=== PATIENT | male | born 1990 | race Caucasian/White ===

== ENCOUNTER 2017-02-26 07:53 | Emergency (ER) | payer MEDICARE ==
[2017-02-26 08:09] VITALS: BP 128/70
[2017-02-26 09:00] LABS: ABSOLUTE BASOPHILS # (AUTO) 0.1 10^3/uL (0.0-0.2); ABSOLUTE EOSINOPHILS # (AUTO) 0.2 10^3/uL (0.0-0.6); ABSOLUTE LYMPHOCYTES (AUTO) 2.9 10^3/uL (0.5-4.7); ABSOLUTE MONOCYTES (AUTO) 0.6 10^3/uL (0.1-1.4); ABSOLUTE NEUT (AUTO) 5.8 10^3/uL (1.7-8.2); BASOPHILS % (AUTO) 1.2 % (0-2); EOSINOPHILS % (AUTO) 1.9 % (0-6); HEMATOCRIT 40.2 % (37.9-51.0); HEMOGLOBIN 13.6 g/dL (13.5-17.0); LYMPHOCYTES % (AUTO) 30.5 % (13-45); MEAN CORPUSCULAR HEMOGLOBIN 29.6 pg (27.0-33.4); MEAN CORPUSCULAR HGB CONC 33.9 g/dL (32.0-36.0); MEAN CORPUSCULAR VOLUME 87 fl (80-97); MONOCYTES % (AUTO) 6.6 % (3-13); PLATELET COUNT 212 10^3/uL (150-450); RED BLOOD COUNT 4.61 10^6/uL (4.35-5.55); RED CELL DISTRIBUTION WIDTH 13.8 % (11.5-14.0); SEGMENTED NEUTROPHILS % (AUTO) 59.8 % (42-78); TOTAL CELLS COUNTED % (AUTO) 100 %; WHITE BLOOD COUNT 9.7 10^3/uL (4.0-10.5)
[2017-02-26 09:25] LABS: ACETAMINOPHEN < 10 ug/mL (10-30); ALANINE AMINOTRANSFERASE 30 U/L (21-72); ALBUMIN 4.4 g/dL (3.5-5.0); ALCOHOL < 10 mg/dL (NONE DETECTED); ALKALINE PHOSPHATASE 55 U/L (38-126); ANION GAP 13 (5-19); ASPARTATE AMINO TRANSFERASE 25 U/L (17-59); BILIRUBIN,DIRECT 0.2 mg/dL (0.0-0.4); BILIRUBIN,TOTAL 0.7 mg/dL (0.2-1.3); BLOOD UREA NITROGEN 14 mg/dL (7-20); CALCIUM 10.1 mg/dL (8.4-10.2); CARBON DIOXIDE 30 mmol/L (22-30); CHLORIDE 101 mmol/L (98-107); GLUCOSE 145 mg/dL (75-110); POTASSIUM 3.7 mmol/L (3.6-5.0); SALICYLATE < 1.0 mg/dL (2.0-20.0); SODIUM 143.9 mmol/L (137-145); TOTAL PROTEIN 6.5 g/dL (6.3-8.2)
--- NOTE | 2017-02-26 09:33 | ER Document Report ---
ED Psych Disorder / Suicide <KADIE WESTBROOK - Last Filed: 02/26/17 11:51> - General TRAVEL OUTSIDE OF THE U.S. IN LAST 30 DAYS: No <GLADYS RUIZ - Last Filed: 02/26/17 11:53> - General Chief Complaint: Suicidal Ideation Stated Complaint: SUICIDAL IDEATION Time Seen by Provider: 02/26/17 09:00 Notes: The patient is a 26-year-old male, past medical history chronic depression, chronic back pain, presents with thoughts of hurting himself after he picked up a knife while cutting a steak. He did not actually hurt himself. Looking through prior records, he is frequently in the emergency room for similar complaints. Patient was from [place], but said that he has now moved to [place] to live with his siblings. Patient will not answer if he is taking his Seroquel as prescribed. Patient denies change in bowel or bladder, difficult to walking, fevers, back injury, nausea, vomiting or homicidal ideation. (GLADYS RUIZ) - Related Data Allergies/Adverse Reactions: latex [Latex] Allergy (Unknown, Verified 01/31/13 18:16) Penicillins Allergy (Verified 01/31/13 18:16) bees Allergy (Uncoded 01/26/13 12:06) Past Medical History - General Information source: Patient - Social History Smoking Status: Current Every Day Smoker Chew tobacco use (# tins/day): No Frequency of alcohol use: None Drug Abuse: Marijuana Family History: Reviewed & Not Pertinent Patient has suicidal ideation: Yes Patient has homicidal ideation: No Neurological Medical History: Reports: Hx Seizures - Patient reports 3 seizures , but thinks they were drug-induced. Renal/ Medical History: Denies: Hx Peritoneal Dialysis Musculoskeltal Medical History: Reports Hx Arthritis - hands Psychiatric Medical History: Reports: Hx Attention Deficit Hyperactivity Disorder, Hx Bipolar Disorder, Hx Depression, Hx Schizophrenia - Immunizations Immunizations up to date: Yes Hx Diphtheria, Pertussis, Tetanus Vaccination: Yes - 2012 <GLADYS RUIZ - Last Filed: 02/26/17 11:53> Review of Systems <KADIE WESTBROOK - Last Filed: 02/26/17 11:51> <GLADYS RUIZ - Last Filed: 02/26/17 11:53> - Review of Systems Notes: REVIEW OF SYSTEMS: CONSTITUTIONAL: -fevers, -chills EENT: -eye pain, -difficulty swallowing, -nasal congestion CARDIOVASCULAR: -chest pain, -syncope. RESPIRATORY: -cough, -SOB GASTROINTESTINAL: -abdominal pain, -nausea, -vomiting, -diarrhea GENITOURINARY: -dysuria, -hematuria MUSCULOSKELETAL: -back pain, -neck pain SKIN: -rash or skin lesions. HEMATOLOGIC: -easy bruising or bleeding. LYMPHATIC: -swollen, enlarged glands. NEUROLOGICAL: -altered mental status or loss of consciousness, -headache, - neurologic symptoms PSYCHIATRIC: -anxiety, +depression, +SI ALL OTHER SYSTEMS REVIEWED AND NEGATIVE. (GLADYS RUIZ) Physical Exam <KADIE WESTBROOK - Last Filed: 02/26/17 11:51> <GLADYS RUIZ - Last Filed: 02/26/17 11:53> - Vital signs Vitals: Temp Pulse Resp BP Pulse Ox 97.5 F 87 16 128/70 H 98 02/26/17 08:08 02/26/17 08:08 02/26/17 08:08 02/26/17 08:08 02/26/17 08:08 - Notes Notes: PHYSICAL EXAMINATION: GENERAL: Well-appearing, well-nourished and in no acute distress. HEAD: Atraumatic, normocephalic. EYES: Pupils equal round and reactive to light, extraocular movements intact, sclera anicteric, conjunctiva are normal. ENT: nares patent, oropharynx clear without exudates. Moist mucous membranes. NECK: Normal range of motion, supple without lymphadenopathy LUNGS: Breath sounds clear to auscultation bilaterally and equal. No wheezes rales or rhonchi. HEART: Regular rate and rhythm without murmurs ABDOMEN: Soft, nontender, normoactive bowel sounds. No guarding, no rebound. No masses appreciated. EXTREMITIES: Normal range of motion, no pitting or edema. No cyanosis. NEUROLOGICAL: Cranial nerves grossly intact. Normal speech, normal gait. Normal sensory and motor exams. PSYCH: Flat affect. SKIN: Warm, Dry, normal turgor, no rashes or lesions noted. (GLADYS RUIZ) Course - Laboratory Result Diagrams: 02/26/17 08:46 02/26/17 08:46 <KADIE WESTBROOK - Last Filed: 02/26/17 11:51> - Laboratory Result Diagrams: 02/26/17 08:46 02/26/17 08:46 <GLADYS RUIZ - Last Filed: 02/26/17 11:53> - Re-evaluation Re-evalutation: 02/26/17 09:33 Pt's back pain is chronic in nature. No red flag signs for low back pain at this time. Patient was expressing some suicidal ideation by looking at a steak knife, but no active suicide attempt. He frequently has these thoughts and this seems like a chronic issue. Will have mental health evaluate patient and heed their recommendations. (GLADYS RUIZ) - Vital Signs Vital signs: Temp Pulse Resp BP Pulse Ox 97.5 F 87 16 128/70 H 98 02/26/17 08:08 02/26/17 08:08 02/26/17 08:08 02/26/17 08:08 02/26/17 08:08 - Laboratory Laboratory results interpreted by me: 02/26/17 08:46 Glucose 145 H Salicylates < 1.0 L Acetaminophen < 10 L Discharge <KADIE WESTBROOK - Last Filed: 02/26/17 11:51> <GLADYS RUIZ - Last Filed: 02/26/17 11:53> - Discharge Clinical Impression: Suicidal ideation, Homeless Chronic back pain Qualifiers: Back pain location: low back pain Back pain laterality: unspecified Sciatica presence: without sciatica Qualified Code(s): M54.5 - Low back pain Condition: Stable Disposition: HOME, SELF-CARE Additional Instructions: DEPRESSION: Your evaluation reveals that you have mental depression. While symptoms may be vague, they often include disturbance of sleep, fatigue, loss of appetite , and general loss of interest in life. While depression may be a side effect of drugs, or a reaction to a major change in your life, many cases have no known cause. If depression is acute, and related to a major loss in your life, you can expect it to clear completely with time. If you have been depressed a long time , are prone to repeated bouts of depression or low mood, or have been thinking of suicide, get help. Depression can be treated with anti-depressant medication and counselling. Long-term depression will often take a few weeks to clear, even with appropriate medication. Follow-up care is important. SUICIDAL IDEATION: Suicidal ideation is a common medical term for thoughts about suicide, which may be as detailed as a formulated plan, without the suicidal act itself. Although most people who undergo suicidal ideation do not commit suicide, some go on to make suicide attempts. The range of suicidal ideation varies greatly from fleeting to detailed planning, role playing, and unsuccessful attempts. While thoughts about suicide are common, most people do not carry out serious actions to commit suicide. Based upon your evaluation and discussion with you, we do not believe you are currently at risk to act upon your thoughts of suicide. You have agreed to return to the Emergency Department, at any time , if you feel inclined to act upon your suicidal thoughts. FOLLOW-UP CARE: You have been instructed to utilize one of the mobile crisis teams to assist with voluntary outpatient substance abuse treatment, specifically more ferry terminal supervisor care such as an [facility] (something you identified you heard about and are interested in). If you experience worsening or a significant change in your symptoms, notify the physician immediately, utilize one of the mobile crisis numbers, or return to the Emergency Department at any time for re- evaluation. Referrals: [facility] [Outside] - 02/26/17 [facility] Mobile [facility] [Outside] - 02/26/17
--- NOTE | 2017-02-26 09:48 | EKG REPORT ---
SEVERITY:- NORMAL ECG - SINUS RHYTHM : Confirmed by: Miquel Rios 26-Feb-2017 09:47:19
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
== END 2017-02-26 12:28 | disposition home or self-care (01) ==
LOC: ER 07:53
DX: F31.9 Bipolar disorder, unspecified (principal); R45.851 Suicidal ideations; G89.29 Other chronic pain; M54.5 Low back pain; F20.9 Schizophrenia, unspecified; M54.9 Dorsalgia, unspecified; Z91.040 Latex allergy status; Z88.0 Allergy status to penicillin; Z91.030 Bee allergy status; Z59.0 Homelessness
CPT/HCPCS: 36415; 80053; 80307; 85025; 93005; 93010; 99285

== ENCOUNTER 2017-02-27 21:48 | Emergency (ER) | payer MEDICARE ==
[2017-02-28 00:24] LABS: APPEARANCE,URINE CLEAR; BILIRUBIN,URINE NEGATIVE (NEGATIVE); COLOR,URINE STRAW; GLUCOSE, URINE NEGATIVE (NEGATIVE); KETONES,URINE NEGATIVE (NEGATIVE); LEUKOCYTE ESTERASE,URINE NEGATIVE (NEGATIVE); NITRITE,URINE NEGATIVE (NEGATIVE); PROTEIN,URINE NEGATIVE (NEGATIVE); URINE SPECIFIC GRAVITY 1.003; UROBILINOGEN,URINE NEGATIVE mg/dL (<2.0)
[2017-02-28] MEDS ORDERED: IBUPROFEN 600 MG TABLET PO ONE (01:33)
[2017-02-28] MEDS ORDERED: PHENAZOPYRIDINE HCL 200 MG TABLET PO ONE (01:34)
--- NOTE | 2017-02-28 01:36 | ER Document Report ---
ED GI/ - General Chief Complaint: Urinary Problem Stated Complaint: PAINFUL URINATION Time Seen by Provider: 02/28/17 01:30 Mode of Arrival: Ambulatory Information source: Patient Notes: 26-year-old male presents to ED for complaint of pain with urination starting this afternoon. This is a homeless gentleman who is a frequent visitor to the emergency room he is afebrile no acute distress. TRAVEL OUTSIDE OF THE U.S. IN LAST 30 DAYS: No - HPI Patient complains to provider of: Other - Pain with urination Onset: This afternoon Timing/Duration: Gradual Quality of pain: Burning Severity at maximum: Moderate Severity in ED: Moderate Pain Level: 4 Location: Other - Pain with urination Associated symptoms: Urinary frequency, Urinary urgency, Other - Pain with urination. denies: Penile discharge Exacerbated by: Other - Urination Relieved by: Denies Similar symptoms previously: No Recently seen / treated by doctor: Yes - Was seen in ED yesterday - Related Data Allergies/Adverse Reactions: latex [Latex] Allergy (Unknown, Verified 01/31/13 18:16) Penicillins Allergy (Verified 01/31/13 18:16) bees Allergy (Uncoded 01/26/13 12:06) Past Medical History - General Information source: Patient - Social History Smoking Status: Current Every Day Smoker Cigarette use (# per day): Yes - 1/2-2 packs per day Smoking Education Provided: Yes - 4 minutes Frequency of alcohol use: None Drug Abuse: Marijuana Lives with: Homeless Family History: Reviewed & Not Pertinent Patient has suicidal ideation: No Patient has homicidal ideation: No - Past Medical History Cardiac Medical History: Reports: None Pulmonary Medical History: Reports: None EENT Medical History: Reports: None Neurological Medical History: Reports: Hx Seizures - Patient reports 3 seizures , but thinks they were drug-induced. Endocrine Medical History: Reports: None Renal/ Medical History: Reports: None GI Medical History: Reports: None Musculoskeltal Medical History: Reports Hx Arthritis - hands Skin Medical History: Reports None Psychiatric Medical History: Reports: Hx Attention Deficit Hyperactivity Disorder, Hx Bipolar Disorder, Hx Depression, Hx Schizophrenia Traumatic Medical History: Reports: None Infectious Medical History: Reports: None Surgical Hx: Negative Past Surgical History: Reports: None - Immunizations Immunizations up to date: Yes Hx Diphtheria, Pertussis, Tetanus Vaccination: Yes - 2012 Review of Systems - Review of Systems Constitutional: No symptoms reported EENT: No symptoms reported Cardiovascular: No symptoms reported Respiratory: No symptoms reported Gastrointestinal: No symptoms reported Genitourinary: Burning, Frequency, Urgency Male Genitourinary: No symptoms reported Musculoskeletal: No symptoms reported Skin: No symptoms reported Hematologic/Lymphatic: No symptoms reported Neurological/Psychological: No symptoms reported -: Yes All other systems reviewed and negative Physical Exam - Vital signs Vitals: Temp Pulse Resp BP Pulse Ox 99.6 F 95 16 125/83 98 02/27/17 22:19 02/27/17 22:19 02/27/17 22:19 02/27/17 22:19 02/27/17 22:19 Interpretation: Normal - General General appearance: Appears well, Alert - HEENT Head: Normocephalic, Atraumatic Eyes: Normal Pupils: PERRL - Respiratory Respiratory status: No respiratory distress Chest status: Nontender Breath sounds: Normal Chest palpation: Normal - Cardiovascular Rhythm: Regular Heart sounds: Normal auscultation Murmur: No - Abdominal Inspection: Normal Distension: No distension Bowel sounds: Normal Tenderness: Nontender Organomegaly: No organomegaly - Back Back: Normal, Nontender - Extremities General upper extremity: Normal inspection, Nontender, Normal color, Normal ROM , Normal temperature General lower extremity: Normal inspection, Nontender, Normal color, Normal ROM , Normal temperature, Normal weight bearing. No: Justine's sign - Neurological Neuro grossly intact: Yes Cognition: Normal Orientation: AAOx4 [place] Coma Scale Eye Opening: Spontaneous Jovan Coma Scale Verbal: Oriented Jovan Coma Scale Motor: Obeys Commands [place] Coma Scale Total: 15 Speech: Normal Motor strength normal: LUE, RUE, LLE, RLE Sensory: Normal - Psychological Associated symptoms: Normal affect, Normal mood - Skin Skin Temperature: Warm Skin Moisture: Dry Skin Color: Normal Course - Re-evaluation Re-evalutation: 02/28/17 02:20 Negative urine discussed with patient. Patient was given ibuprofen for and Pyridium for his discomfort. Patient was instructed to follow-up with his primary doctor. Patient was discharged home with prescription for Pyridium. - Vital Signs Vital signs: Temp Pulse Resp BP Pulse Ox 99.6 F 95 16 125/83 98 02/27/17 22:19 02/27/17 22:19 02/27/17 22:19 02/27/17 22:19 02/27/17 22:19 - Laboratory Laboratory results interpreted by me: 02/28/17 00:10 Urine Blood SMALL H Discharge - Discharge Clinical Impression: Painful urination, Homeless Condition: Stable Disposition: HOME, SELF-CARE Instructions: Family Physicians / Practices Additional Instructions: He was seen today for complaint of painful urination. Your UA urinalysis is negative for any urinary infection Ibuprofen Ibuprofen is an excellent, safe drug for pain control. In addition, it has potent antiinflammatory effects which are beneficial, especially in the treatment of injuries, arthritis, or tendonitis. It's best to take ibuprofen with food. Persons with ulcer disease or allergy to aspirin should notify their physician of this before taking ibuprofen. Take the medication exactly as prescribed. Don't take additional doses unless instructed to do so by your doctor. If you develop wheezing, shortness of breath, hives, faintness, stomach pain, vomiting, or dark black stools, return for re-evaluation at once. FOLLOW-UP CARE: If you have been referred to a physician for follow-up care, call the physician s office for an appointment as you were instructed or within the next two days. If you experience worsening or a significant change in your symptoms, notify the physician immediately or return to the Emergency Department at any time for re-evaluation. Prescriptions: Phenazopyridine HCl [Pyridium 100 Mg Tablet] 100 mg PO TIDP PRN #12 tablet PRN Reason: Forms: Smoking Cessation Education
[2017-02-28 02:16] VITALS: BP 125/83
== END 2017-02-28 01:40 | disposition home or self-care (01) ==
LOC: ER 21:48
DX: R30.0 Dysuria (principal); F17.210 Nicotine dependence, cigarettes, uncomplicated; Z59.0 Homelessness; Z91.040 Latex allergy status; Z88.0 Allergy status to penicillin; Z91.030 Bee allergy status
CPT/HCPCS: 99283; 81001; A9270 ×2; J3490

== ENCOUNTER 2017-03-07 19:18 | Emergency (ER) | payer MEDICARE ==
--- NOTE | 2017-03-07 22:36 | ER Document Report ---
ED Medical Screen (RME) - General Chief Complaint: Suicidal Ideation Stated Complaint: SUICIDAL IDEATIONS Time Seen by Provider: 03/07/17 22:29 Mode of Arrival: Ambulatory Information source: Patient TRAVEL OUTSIDE OF THE U.S. IN LAST 30 DAYS: No - HPI Patient complains to provider of: HADLEY Notes: 03/07/17 22:35 Patient arrives with complaints of suicidal ideation. The patient was seen here last week for similar complaints and is been seen for this multiple times in the past. States that he is currently homeless which is making him more depressed and he feels like he wants to hurt himself. When asked if he has a plan, he states that he is highly allergic to bees and he was going to disturb a being asked. States that his last marijuana use was about 1 week ago and his last crack cocaine use was about 2 weeks ago. He has not tried to harm himself today but is concerned that he might. Patient is nontoxic appearing and cooperative at this time. Nonfocal exam. Psych screening labs have been ordered and the patient will be further evaluated. Patient was evaluated in triage and was medically screened. Any pertinent orders based on the patient's complaints were ordered at this time. Patient will require further evaluation and will be taken to a room for further evaluation by another provider. This was explained to the patient and/or family at this time. - Related Data Allergies/Adverse Reactions: latex [Latex] Allergy (Unknown, Verified 01/31/13 18:16) Penicillins Allergy (Verified 01/31/13 18:16) bees Allergy (Uncoded 01/26/13 12:06) Past Medical History - Social History Frequency of alcohol use: None Drug Abuse: None Family history: Reviewed & Not Pertinent Neurological Medical History: Reports: Hx Seizures - Patient reports 3 seizures , but thinks they were drug-induced. Renal/ Medical History: Denies: Hx Peritoneal Dialysis Musculoskeltal Medical History: Reports Hx Arthritis - hands Psychiatric Medical History: Reports: Hx Attention Deficit Hyperactivity Disorder, Hx Bipolar Disorder, Hx Depression, Hx Schizophrenia - Immunizations Immunizations up to date: Yes Hx Diphtheria, Pertussis, Tetanus Vaccination: Yes - 2012
[2017-03-07 23:04] LABS: ABSOLUTE BASOPHILS # (AUTO) 0.1 10^3/uL (0.0-0.2); ABSOLUTE EOSINOPHILS # (AUTO) 0.1 10^3/uL (0.0-0.6); ABSOLUTE LYMPHOCYTES (AUTO) 2.4 10^3/uL (0.5-4.7); ABSOLUTE MONOCYTES (AUTO) 0.8 10^3/uL (0.1-1.4); ABSOLUTE NEUT (AUTO) 5.7 10^3/uL (1.7-8.2); EOSINOPHILS % (AUTO) 1.4 % (0-6); HEMATOCRIT 42.9 % (37.9-51.0); HEMOGLOBIN 14.5 g/dL (13.5-17.0); LYMPHOCYTES % (AUTO) 26.2 % (13-45); MEAN CORPUSCULAR HEMOGLOBIN 29.7 pg (27.0-33.4); MEAN CORPUSCULAR HGB CONC 33.8 g/dL (32.0-36.0); MEAN CORPUSCULAR VOLUME 88 fl (80-97); MONOCYTES % (AUTO) 8.3 % (3-13); PLATELET COUNT 239 10^3/uL (150-450); RED BLOOD COUNT 4.89 10^6/uL (4.35-5.55); RED CELL DISTRIBUTION WIDTH 14.1 % (11.5-14.0); SEGMENTED NEUTROPHILS % (AUTO) 63.1 % (42-78); TOTAL CELLS COUNTED % (AUTO) 100 %; WHITE BLOOD COUNT 9.1 10^3/uL (4.0-10.5)
[2017-03-07 23:28] LABS: ALANINE AMINOTRANSFERASE 37 U/L (21-72); ALKALINE PHOSPHATASE 55 U/L (38-126); ANION GAP 11 (5-19); ASPARTATE AMINO TRANSFERASE 30 U/L (17-59); BILIRUBIN,DIRECT 0.2 mg/dL (0.0-0.4); BILIRUBIN,TOTAL 0.6 mg/dL (0.2-1.3); BLOOD UREA NITROGEN 13 mg/dL (7-20); CALCIUM 10.5 mg/dL (8.4-10.2); CARBON DIOXIDE 31 mmol/L (22-30); CHLORIDE 100 mmol/L (98-107); GLUCOSE 104 mg/dL (75-110); POTASSIUM 4.1 mmol/L (3.6-5.0); SODIUM 141.7 mmol/L (137-145); TOTAL PROTEIN 7.4 g/dL (6.3-8.2)
[2017-03-07 23:33] LABS: ACETAMINOPHEN < 10 ug/mL (10-30); ALCOHOL < 10 mg/dL (NONE DETECTED); SALICYLATE < 1.0 mg/dL (2.0-20.0)
[2017-03-08 00:50] LABS: APPEARANCE,URINE CLEAR; BILIRUBIN,URINE NEGATIVE (NEGATIVE); COLOR,URINE YELLOW; GLUCOSE, URINE 150 mg/dL (NEGATIVE); KETONES,URINE NEGATIVE (NEGATIVE); LEUKOCYTE ESTERASE,URINE NEGATIVE (NEGATIVE); NITRITE,URINE NEGATIVE (NEGATIVE); PROTEIN,URINE NEGATIVE (NEGATIVE); URINE SPECIFIC GRAVITY 1.017; UROBILINOGEN,URINE NEGATIVE mg/dL (<2.0)
--- NOTE | 2017-03-08 01:22 | ER Document Report ---
ED Psych Disorder / Suicide - General Mode of Arrival: Ambulatory Information source: Patient TRAVEL OUTSIDE OF THE U.S. IN LAST 30 DAYS: No - HPI Patient complains to provider of: Suicidal ideation, Suicidal plan Onset: Other - see notes above Suicide Risk Factors: Depressed, Male Associated symptoms: Other - see notes above <LESLEE SADLER - Last Filed: 03/08/17 01:26> <KARYN CARRILLO - Last Filed: 03/08/17 04:41> - General Chief Complaint: Suicidal Ideation Stated Complaint: SUICIDAL IDEATIONS Time Seen by Provider: 03/07/17 22:29 Notes: 26 year old male with history of depression (since ) presents to the ED complaining of depression and suicidal ideation that has been ongoing since [id number], but worsened recently. Patient explains that his mother in 2012 and the anniversary of her just passed. Patient called [facility] mobile crisis who brought the patient to the ED. Patient denies taking any medication or going through any other means to hurt himself. Patient had a plan to kill himself by stinging himself with a bee, walking into traffic, or jumping off a bridge. Patient is supposed to be on medication for his depression, but hasn't taken them in 2 years because he doesn't have provider caring for him. Patient additionally complains of shortness of breath for a 'couple years', visual hallucinations (seeing 'ghosts'), and auditory hallucinations for a few years. Patient denies headache, chest pain, sore throat, numbness, or tingling. Patient was staying with a friend until this morning when he was kicked out for 'making out with his friend's girlfriend.' (LESLEE SADLER) - Related Data Allergies/Adverse Reactions: latex [Latex] Allergy (Unknown, Verified 01/31/13 18:16) Penicillins Allergy (Verified 01/31/13 18:16) bees Allergy (Uncoded 01/26/13 12:06) Past Medical History - General Information source: Patient - Social History Smoking Status: Current Every Day Smoker Frequency of alcohol use: None Drug Abuse: None Family History: Reviewed & Not Pertinent Patient has suicidal ideation: Yes Patient has homicidal ideation: No Neurological Medical History: Reports: Hx Seizures - Patient reports 3 seizures , but thinks they were drug-induced. Renal/ Medical History: Denies: Hx Peritoneal Dialysis Musculoskeltal Medical History: Reports Hx Arthritis - hands Psychiatric Medical History: Reports: Hx Attention Deficit Hyperactivity Disorder, Hx Bipolar Disorder, Hx Depression, Hx Schizophrenia - Immunizations Immunizations up to date: Yes Hx Diphtheria, Pertussis, Tetanus Vaccination: Yes - 2012 <LESLEE SADLER - Last Filed: 03/08/17 01:26> Review of Systems - Review of Systems Constitutional: No symptoms reported EENT: No symptoms reported. denies: Throat pain Cardiovascular: No symptoms reported. denies: Chest pain Respiratory: See HPI, Short of breath Gastrointestinal: No symptoms reported Genitourinary: No symptoms reported Male Genitourinary: No symptoms reported Musculoskeletal: No symptoms reported Skin: No symptoms reported Hematologic/Lymphatic: No symptoms reported Neurological/Psychological: See HPI, Depression, Hallucinations - auditory and visual, Suicidal ideation. denies: Headaches, Numbness, Tingling -: Yes All other systems reviewed and negative <LESLEE SADLER - Last Filed: 03/08/17 01:26> Physical Exam <LESLEE SADLER - Last Filed: 03/08/17 01:26> <KARYN CARRILLO - Last Filed: 03/08/17 04:41> - Notes Notes: GENERAL: Alert, interacts well. No acute distress. HEAD: Normocephalic, atraumatic. EYES: Pupils equal, round, and reactive to light. Extraocular movements intact. ENT: Oral mucosa moist, tongue midline. NECK: Full range of motion. Supple. Trachea midline. LUNGS: Clear to auscultation bilaterally, no wheezes, rales, or rhonchi. No respiratory distress. HEART: Regular rate and rhythm. No murmurs, gallops, or rubs. ABDOMEN: Soft, non-tender. Non-distended. Bowel sounds present in all 4 quadrants. EXTREMITIES: Moves all 4 extremities spontaneously. No edema, radial pulses 2/4 bilaterally. No cyanosis. NEUROLOGICAL: Alert and oriented x3. Normal speech. PSYCH: Normal affect, normal mood. SKIN: Warm, dry, normal turgor. No rashes or lesions noted. (LESLEE SADLER) Course - Laboratory Result Diagrams: 03/07/17 22:45 03/07/17 22:45 <LESLEE SADLER - Last Filed: 03/08/17 01:26> - Laboratory Result Diagrams: 03/07/17 22:45 03/07/17 22:45 <KARYN CARRILLO - Last Filed: 03/08/17 04:41> - Re-evaluation Re-evalutation: 03/08/17 01:22 CBC unremarkable, CMP grossly unremarkable, urinalysis shows 150 of glucose and small blood but only 1 RBC, no signs of infection, salicylates, acetaminophen and alcohol are all unremarkable. Urine drug screen is still pending. I suspect this patient is not truly suicidal at this time as this plan has changed multiple times depending on who has asked him questions. I suspect he is more concerned by the loss of his housing today. Patient states that he used to be living with a friend of his until his friend caught him making out with his friends girlfriend this morning. Patient no longer has a place to stay. Patient will be kept here until the morning when he can be evaluated by mental health. 03/08/17 01:23 Patient is medically cleared. (KARYN CARRILLO) - Laboratory Laboratory results interpreted by me: 03/07/17 03/07/17 03/07/17 22:45 22:45 23:45 RDW 14.1 H Carbon Dioxide 31 H Calcium 10.5 H Urine Glucose (UA) 150 H Urine Blood SMALL H Salicylates < 1.0 L Acetaminophen < 10 L Discharge <LESLEE SADLER - Last Filed: 03/08/17 01:26> <KARYN CARRILLO - Last Filed: 03/08/17 04:41> - Discharge Clinical Impression: Suicidal ideation, Tobacco abuse Condition: Stable Disposition: PSYCH HOSP/UNIT Forms: Smoking Cessation Education Scribe Attestation: 03/08/17 04:41 I personally performed the services described in the documentation, reviewed and edited the documentation which was dictated to the scribe in my presence, and it accurately records my words and actions. (KARYN CARRILLO) Scribe Documentation - Scribe Written by Enriqueibrossy:: Vickie Zelaya, 03/08/2017 0128 acting as scribe for :: Lindsey <LESLEE SADLER - Last Filed: 03/08/17 01:26>
[2017-03-08] MEDS ORDERED: NICOTINE 14 MG/24 HR PATCH.TD24 TD ONE (01:56)
[2017-03-08 02:56] LABS: URINE AMPHETAMINES SCREEN NEGATIVE; URINE BARBITURATES SCREEN NEGATIVE; URINE BENZODIAZEPINES SCREEN NEGATIVE; URINE COCAINE SCREEN NEGATIVE; URINE MARIJUANA (THC) SCREEN NEGATIVE; URINE METHADONE SCREEN NEGATIVE; URINE PHENCYCLIDINE SCREEN NEGATIVE
--- NOTE | 2017-03-08 09:19 | PSYCHOLOGICAL NOTE ---
Psych Note - Psych Note Psych Note: Reason for consult: Suicidal ideation Consent permissions: None given Pt with c/o suicidal ideations. Pt is with mobile oyster bed worker and he states that he "will walk into traffic". Pt has been off his medications for a few years. Pt is calm and cooperative and agrees to not harm himself while in our lobby. Patient disclosed he came to [facility] with the A social insurance analyst. He stated that he threatened to kill himself. Patient disclosed "I told her if she did not help me, I was going to run into traffic on [address] Patient was asked why he said that; he stated "I felt that way at the time." He continued disclosed that he is been feeling depressed for approximately 4 years since his mother . He has not been on any medication for the last 2 years because "mental health cut me off because I was selling my meds instead of taking them." He continued to report that he is only been in the area for approximately 2 weeks. He reports he came to [place], [place] to get away from [place] because he "got on crack so came here to get away from it. " Patient confirms he currently has nowhere to live. Patient reports he had a plan by disturbing a beehive because he is "deathly allergic" to bees. He states that he has lost count the number times he has been inpatient. He reports he has a diagnosis of "bipolar, manic depression, schizophrenia and suicidal." Patient is alert and orientated to person, place, time and circumstance. Mood is euthymic with congruent affect. Patient endorses passive suicidal ideation with multiple plans. Patient denies homicidal ideation. Delusions are absent and behaviors congruent to an intact reality based presentation i.e. organized, linear, rational thinking. Thought content appears to be driven by secondary gain i.e. patient currently has nowhere to live. Eye contact was well- maintained. Conversational speech was within normal rate, tone and prosody. Intellectual abilities appear to be within the average range. Attention and concentration were good. Insight, judgment, impulse control are fair. Chart review conducted: Patient is noted to report multiple plans to different [facility] staff and mobile crisis responder which include disturbing a beehive to get stung, walking into traffic, or jumping off a bridge. Patient was staying with a friend until this morning when he was kicked out for 'making out with his friend's girlfriend.' Patient additionally reported visual hallucinations i.e. seeing ghosts and having auditory hallucinations for "a few years." Clinician spoke with [facility] mobile oyster bed worker,Jaylynchandrika [phone], confirms patient has bed at the [facility] and they will be transporting patient upon discharge. 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 Patient does not meet IVC criteria per [place] GS 120 2C. Patient describes passive suicidal ideation with multiple plans i.e. disturbing a beehive in an attempt to get stung, jumping off a bridge, and running into traffic. Patient's trigger was being kicked out of his housing last night for making out with his friend's girlfriend. Patient reports history of crack cocaine use. He also describes being unable to get mental health services while living in [place] because he was found to be selling his mental health medications instead of taking them. Patient also reported having visual and auditory hallucinations however behavior is not congruent with psychosis i.e organized, linear thought processes , eye contacted was well-maintained, and conversational speech was within normal rate, tone and prosody. At this time, it appears the patient has difficulty with substance abuse and is homeless. His behavior is congruent with attempting to achieve secondary gain (housing). [facility] mobile oyster bed worker successfully obtained bed for the patient at the [facility] to assist with substance abuse. Patient will be transported via [facility] upon discharge. Patient is recommended to follow through with his substance abuse treatment. Dr. Blair was consulted and the care management of this patient; attending physician is in agreement with her conditions and disposition.
--- NOTE | 2017-03-08 10:05 | ER Document Report ---
Doctor's Note Notes: 03/08/17 10:02 Medical rounds: Chart reviewed and patient interviewed briefly. Vital signs are normal. Laboratory values satisfactory. On examination, patient is alert, oriented, and cooperative. His only somatic complaint is that of a painful tooth. He does indeed have multiple carious teeth, and the left upper second molar is painful to percussion. There is no evidence of abscess. The psychosocial team has arranged for transfer to [place]. I will prescribe a course of clindamycin for his dental infection. Patient is medically stable for transfer.
[2017-03-08] MEDS ORDERED: CLINDAMYCIN HCL 150 MG CAPSULE PO ONE (10:20)
[2017-03-08 10:30] VITALS: BP 123/74
== END 2017-03-08 10:30 | disposition home or self-care (01) ==
LOC: ER 19:18
DX: R45.851 Suicidal ideations (principal); F14.10 Cocaine abuse, uncomplicated; K04.7 Periapical abscess without sinus; F17.200 Nicotine dependence, unspecified, uncomplicated; Z59.0 Homelessness; Z91.040 Latex allergy status; Z88.0 Allergy status to penicillin; Z91.030 Bee allergy status
CPT/HCPCS: 99285; 36415; 80307 ×4; 85025; 80053; 81001; A9270

== ENCOUNTER 2017-03-23 00:35 | Emergency (ER) | payer MEDICARE ==
[2017-03-23 01:54] LABS: ABSOLUTE BASOPHILS # (AUTO) 0.1 10^3/uL (0.0-0.2); ABSOLUTE EOSINOPHILS # (AUTO) 0.2 10^3/uL (0.0-0.6); ABSOLUTE LYMPHOCYTES (AUTO) 2.5 10^3/uL (0.5-4.7); ABSOLUTE MONOCYTES (AUTO) 0.5 10^3/uL (0.1-1.4); ABSOLUTE NEUT (AUTO) 4.7 10^3/uL (1.7-8.2); BASOPHILS % (AUTO) 0.9 % (0-2); EOSINOPHILS % (AUTO) 2.2 % (0-6); HEMATOCRIT 39.5 % (37.9-51.0); HEMOGLOBIN 13.3 g/dL (13.5-17.0); LYMPHOCYTES % (AUTO) 30.8 % (13-45); MEAN CORPUSCULAR HEMOGLOBIN 29.8 pg (27.0-33.4); MEAN CORPUSCULAR HGB CONC 33.7 g/dL (32.0-36.0); MEAN CORPUSCULAR VOLUME 88 fl (80-97); MONOCYTES % (AUTO) 6.5 % (3-13); PLATELET COUNT 221 10^3/uL (150-450); RED BLOOD COUNT 4.47 10^6/uL (4.35-5.55); SEGMENTED NEUTROPHILS % (AUTO) 59.6 % (42-78); TOTAL CELLS COUNTED % (AUTO) 100 %
[2017-03-23 02:07] LABS: ALANINE AMINOTRANSFERASE 63 U/L (21-72); ALBUMIN 4.4 g/dL (3.5-5.0); ALKALINE PHOSPHATASE 56 U/L (38-126); ANION GAP 11 (5-19); ASPARTATE AMINO TRANSFERASE 47 U/L (17-59); BILIRUBIN,DIRECT 0.4 mg/dL (0.0-0.4); BILIRUBIN,TOTAL 0.4 mg/dL (0.2-1.3); BLOOD UREA NITROGEN 10 mg/dL (7-20); CALCIUM 9.9 mg/dL (8.4-10.2); CARBON DIOXIDE 26 mmol/L (22-30); CHLORIDE 106 mmol/L (98-107); GLUCOSE 139 mg/dL (75-110); LIPASE 236.8 U/L (23-300); POTASSIUM 4.1 mmol/L (3.6-5.0); TOTAL PROTEIN 6.9 g/dL (6.3-8.2)
[2017-03-23] MEDS ORDERED: NORMAL SALINE 1000 ML 1,000 ML IV ONE (02:27)
[2017-03-23] MEDS ORDERED: KETOROLAC TROMETHAMINE INJ/PF 30 MG/1 ML SDV IV ONE (02:27)
[2017-03-23] MEDS ORDERED: FENTANYL CITRATE INJ/PF 100 MCG/2 ML AMPUL IV ONE (02:28)
--- NOTE | 2017-03-23 02:29 | ER Document Report ---
ED General - General Chief Complaint: Abdominal Pain Stated Complaint: ABDOMINAL PAIN Time Seen by Provider: 03/23/17 01:27 Notes: Patient is a 26-year-old male with a past medical history of alcohol induced pancreatitis, multiple psychiatric comorbidities who presents complaining of generalized abdominal pain for the past 24 hours. Patient is extremely poor historian, struggles to provide me complete details of his pain history and associated symptoms. He states to me" it hurts like hell I do not know what else to tell you". He denies any vomiting, states he had a normal bowel movement today but that he did have to strain to have a bowel movement. He states that he thinks the pain has been constant but is uncertain. He is unable to characterize the pain. He is unable to tell me what makes the pain better or worse. He is also complaining about a possible outbreak of herpes on his genitals. He denies a history of similar pain in the past. TRAVEL OUTSIDE OF THE U.S. IN LAST 30 DAYS: No - Related Data Allergies/Adverse Reactions: latex [Latex] Allergy (Unknown, Verified 01/31/13 18:16) Penicillins Allergy (Verified 01/31/13 18:16) bees Allergy (Uncoded 01/26/13 12:06) Past Medical History - General Information source: Patient - Social History Smoking Status: Current Every Day Smoker Frequency of alcohol use: None Drug Abuse: None Lives with: Family Family History: Reviewed & Not Pertinent Patient has suicidal ideation: No Patient has homicidal ideation: No Neurological Medical History: Reports: Hx Seizures - Patient reports 3 seizures , but thinks they were drug-induced. Renal/ Medical History: Denies: Hx Peritoneal Dialysis Musculoskeltal Medical History: Reports Hx Arthritis - hands Psychiatric Medical History: Reports: Hx Attention Deficit Hyperactivity Disorder, Hx Bipolar Disorder, Hx Depression, Hx Schizophrenia - Immunizations Immunizations up to date: Yes Hx Diphtheria, Pertussis, Tetanus Vaccination: Yes - 2012 Review of Systems - Review of Systems Notes: Constitutional: Negative for fever. HENT: Negative for sore throat. Eyes: Negative for visual changes. Cardiovascular: Negative for chest pain. Respiratory: Negative for shortness of breath. Gastrointestinal: Positive for abdominal pain Genitourinary: Positive for dysuria. Musculoskeletal: Negative for back pain. Skin: Negative for rash. Neurological: Negative for headaches, weakness or numbness. 10 point ROS negative except as marked above and in HPI. Physical Exam - Vital signs Vitals: Temp Pulse Resp BP Pulse Ox 98.6 F 106 H 16 131/82 H 95 03/23/17 00:56 03/23/17 00:56 03/23/17 00:56 03/23/17 00:56 03/23/17 00:56 Interpretation: Tachycardic Notes: PHYSICAL EXAMINATION: GENERAL: Appears moderately uncomfortable but in no acute distress HEAD: Atraumatic, normocephalic. EYES: Pupils equal round and reactive to light, extraocular movements intact, sclera anicteric, conjunctiva are normal. ENT: nares patent, oropharynx clear without exudates. Moderately dry mucous membranes. NECK: Normal range of motion, supple without lymphadenopathy LUNGS: Breath sounds clear to auscultation bilaterally and equal. No wheezes rales or rhonchi. HEART: Regular rate and rhythm without murmurs ABDOMEN: Somewhat distended abdomen, no rigidity. Diffuse tenderness without rebound or guarding any location. Grimacing and pain regardless of location that I palpate. EXTREMITIES: Normal range of motion, no pitting or edema. No cyanosis. NEUROLOGICAL: No focal neurological deficits. Moves all extremities spontaneously and on command. PSYCH: Intellectual capacities appear below normal levels. Normal mood. SKIN: Warm, Dry, normal turgor, no rashes or lesions noted. Course - Re-evaluation Re-evalutation: 03/23/17 02:28 Patient presents with diffuse generalized abdominal pain without any localization to the pain. Patient is extremely poor historian, is unable to provide me winter components of the clinical history that would be useful in determining the etiology of his abdominal pain. His vitals are noted to be unremarkable, labs clear without any evidence of acute pancreatitis, biliary pathology, acute hepatitis. However, patient appears to be in significant amount of pain to my assessment and given his poor ability to provide history, will proceed with CT abdomen pelvis to evaluate for possible acute appendicitis , intra-abdominal abscess, bowel obstruction, or acute nephrolithiasis. 03/23/17 03:48 CT abdomen pelvis is unremarkable without any evidence of acute pathology. Patient continues to refuse to urinate and I have informed him that given his normal vitals, labs, CT abdomen pelvis he can follow-up as an outpatient to have his urinalysis performed if he is unable to urinate here in the emergency department. General exam does reveal an outbreak of herpes zoster. He will be started on acyclovir. At this time will discharge with return precautions and follow-up recommendations. Verbal discharge instructions given a the bedside and opportunity for questions given. Medication warnings reviewed. Patient is in agreement with this plan and has verbalized understanding of return precautions and the need for primary care follow-up in the next 24-72 hours. - Vital Signs Vital signs: Temp Pulse Resp BP Pulse Ox 98.6 F 106 H 16 131/82 H 95 03/23/17 00:56 03/23/17 00:56 03/23/17 00:56 03/23/17 00:56 03/23/17 00:56 - Laboratory Result Diagrams: 03/23/17 01:40 03/23/17 01:40 Laboratory results interpreted by me: 03/23/17 03/23/17 01:40 01:40 Hgb 13.3 L Glucose 139 H - Diagnostic Test Radiology reviewed: Reports reviewed Discharge - Discharge Clinical Impression: Generalized abdominal pain Genital herpes Qualifiers: Herpes simplex infection site: unspecified Qualified Code(s): A60.00 - Herpesviral infection of urogenital system, unspecified Condition: Good Disposition: HOME, SELF-CARE Additional Instructions: You have been seen in the Emergency Department (ED) for abdominal pain. Your evaluation did not identify a clear cause of your symptoms but was generally reassuring. Please follow up with your doctor as soon as possible regarding today's emergent visit and the symptoms that are bothering you. Return to the ED if your abdominal pain worsens or fails to improve, you develop bloody vomiting, bloody diarrhea, you are unable to tolerate fluids due to vomiting, fever greater than 101, or other symptoms that concern you. Prescriptions: Acyclovir 800 mg PO 5XD #35 tablet
--- NOTE | 2017-03-23 03:40 | RADIOLOGY REPORT (SQ) ---
EXAM DESCRIPTION: CT ABDOMEN AND PELVIS WITH CONTRAST CLINICAL HISTORY: diffuse abdominal pain COMPARISON: None Available. TECHNIQUE: CT of the abdomen and pelvis are performed during IV bolus administration of iodinated contrast. DLP: 830.97 mGycm FINDINGS: Abdomen: The liver has normal size and density. No intrahepatic mass or biliary dilatation. No calcified gallstones. The spleen, pancreas, and adrenal glands are unremarkable. 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 The aorta and IVC have normal caliber and position. The portal vein patent. The proximal visceral and renal arteries are patent. No free intraperitoneal air. The stomach and duodenum have normal course. Pelvis: Prostate is not enlarged. Urinary bladder is unremarkable. No free pelvic fluid or lymphadenopathy. No dilated loops of large or small bowel. Normal appendix. The visualized lung bases are clear. No destructive bone lesions identified. IMPRESSION: 1. No acute inflammatory or obstructive abnormality identified. This exam was performed according to our departmental dose-optimization program, which includes automated exposure control, adjustment of the mA and/or kV according to patient size and/or use of iterative reconstruction technique.
[2017-03-23 04:34] VITALS: BP 125/65
== END 2017-03-23 04:30 | disposition home or self-care (01) ==
LOC: ER 00:35
DX: R10.84 Generalized abdominal pain (principal); A60.00 Herpesviral infection of urogenital system, unspecified; K85.20 Alcohol induced acute pancreatitis without necrosis or infection; F17.200 Nicotine dependence, unspecified, uncomplicated
CPT/HCPCS: 99284; 96361; 96374; 96375; 36415; 83690; 85025; 80053; 74177; J3010; J1885; J7030

== ENCOUNTER 2017-03-28 06:37 | Emergency (ER) | payer MEDICARE ==
[2017-03-28 06:46] VITALS: BP 127/84
[2017-03-28] MEDS ORDERED: ONDANSETRON 4 MG TAB.RAPDIS PO ONE (07:05)
--- NOTE | 2017-03-28 07:12 | ER Document Report ---
ED General - General Chief Complaint: Nausea Stated Complaint: NAUSEA Time Seen by Provider: 03/28/17 06:55 Mode of Arrival: Ambulatory TRAVEL OUTSIDE OF THE U.S. IN LAST 30 DAYS: No - HPI Patient complains to provider of: Patient coming to the ER for lightheadedness and nausea Notes: Patient coming in for why his nausea ongoing for the last 3 days. Patient denies any vomiting states diarrhea for the last 3 days as well. Denies any changes to diarrhea light brown stool no blood. Patient denies any changes any recent medications denies any recent antibiotics states recently traveled to [place] and came back to the [facility]. Denies getting a flu shot this year. Denies any fevers. Patient otherwise ablating around the ER looks well no signs of any critical pathology at this time. - Related Data Allergies/Adverse Reactions: latex [Latex] Allergy (Unknown, Verified 01/31/13 18:16) Penicillins Allergy (Verified 01/31/13 18:16) bees Allergy (Uncoded 01/26/13 12:06) Past Medical History - Social History Smoking Status: Unknown if Ever Smoked Family History: Reviewed & Not Pertinent Neurological Medical History: Reports: Hx Seizures - Patient reports 3 seizures , but thinks they were drug-induced. Renal/ Medical History: Denies: Hx Peritoneal Dialysis Musculoskeltal Medical History: Reports Hx Arthritis - hands Psychiatric Medical History: Reports: Hx Attention Deficit Hyperactivity Disorder, Hx Bipolar Disorder, Hx Depression, Hx Schizophrenia - Immunizations Immunizations up to date: Yes Hx Diphtheria, Pertussis, Tetanus Vaccination: Yes - 2012 Review of Systems - Review of Systems Constitutional: No symptoms reported EENT: No symptoms reported Cardiovascular: No symptoms reported Respiratory: No symptoms reported Gastrointestinal: Nausea - Lightheadedness Genitourinary: No symptoms reported Male Genitourinary: No symptoms reported Musculoskeletal: No symptoms reported Skin: No symptoms reported Hematologic/Lymphatic: No symptoms reported Neurological/Psychological: No symptoms reported Physical Exam - Vital signs Vitals: Temp Pulse Resp BP Pulse Ox 99.2 F 82 18 127/84 H 97 03/28/17 06:43 03/28/17 06:43 03/28/17 06:43 03/28/17 06:43 03/28/17 06:43 Interpretation: Normal - General General appearance: Appears well, Alert - HEENT Head: Normocephalic, Atraumatic Eyes: Normal Pupils: PERRL - Respiratory Respiratory status: No respiratory distress Chest status: Nontender Breath sounds: Normal Chest palpation: Normal - Cardiovascular Rhythm: Regular Heart sounds: Normal auscultation Murmur: No - Abdominal Inspection: Normal Distension: No distension Bowel sounds: Normal Tenderness: Nontender Organomegaly: No organomegaly - Back Back: Normal, Nontender - Extremities General upper extremity: Normal inspection, Nontender, Normal color, Normal ROM , Normal temperature General lower extremity: Normal inspection, Nontender, Normal color, Normal ROM , Normal temperature, Normal weight bearing. No: Justine's sign - Neurological Neuro grossly intact: Yes Cognition: Normal Orientation: AAOx4 Jovan Coma Scale Eye Opening: Spontaneous Jovan Coma Scale Verbal: Oriented Jovan Coma Scale Motor: Obeys Commands Comstock Coma Scale Total: 15 Speech: Normal Motor strength normal: LUE, RUE, LLE, RLE Sensory: Normal - Psychological Associated symptoms: Normal affect, Normal mood - Skin Skin Temperature: Warm Skin Moisture: Dry Skin Color: Normal Course - Re-evaluation Re-evalutation: 03/28/17 10:16 The patient presents with nausea without signs of peritonitis or other life- threatening or serious etiology. The patient appears stable for discharge and has been instructed to return immediately if the symptoms worsen in any way, or in 8-12hr if not improved for re-evaluation. The patient has been instructed to return if the symptoms worsen or change in any way. - Vital Signs Vital signs: Temp Pulse Resp BP Pulse Ox 99.2 F 82 18 127/84 H 97 03/28/17 06:43 03/28/17 06:43 03/28/17 06:43 03/28/17 06:43 03/28/17 06:43 Discharge - Discharge Clinical Impression: Nausea Condition: Good Disposition: HOME, SELF-CARE Instructions: Nausea or Vomiting, Nonspecific ([facility]) Additional Instructions: There examination today is otherwise normal. Your symptoms are consistent with a viral gastroenteritis. Please take medication as prescribed return to ER symptoms worsen. Prescriptions: Ondansetron [Zofran Odt] 4 mg PO Q6 PRN #30 tab.rapdis PRN Reason: For Nausea/Vomiting Forms: Return to Work
== END 2017-03-28 07:24 | disposition home or self-care (01) ==
LOC: ER 06:37
DX: R11.0 Nausea (principal); R42 Dizziness and giddiness; Z91.040 Latex allergy status; Z88.0 Allergy status to penicillin; Z91.030 Bee allergy status
CPT/HCPCS: 99283; A9270; S0119

== ENCOUNTER 2017-03-28 23:12 | Emergency (ER) | payer MEDICARE, OTHER ==
[2017-03-28] MEDS ORDERED: ACETAMINOPHEN 325 MG TABLET PO ONE (23:20)
--- NOTE | 2017-03-29 00:27 | RADIOLOGY REPORT (SQ) ---
EXAM DESCRIPTION: SHOULDER LEFT 2 OR MORE VIEWS CLINICAL HISTORY: 26 years, Male, injury COMPARISON: None. NUMBER OF VIEWS: 4 Findings: Bones, joints, and soft tissues of the left shoulder appear intact. IMPRESSION: No acute findings.
[2017-03-29] MEDS ORDERED: CYCLOBENZAPRINE HCL 10 MG TABLET PO ONE (01:11)
[2017-03-29] MEDS ORDERED: IBUPROFEN 800 MG TABLET PO ONE (01:11)
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
[2017-03-29 01:24] VITALS: BP 118/68
== END 2017-03-29 01:30 | disposition home or self-care (01) ==
LOC: ER 23:12
DX: S40.212A Abrasion of left shoulder, initial encounter (principal); M25.569 Pain in unspecified knee; V13.9XXA Unspecified pedal cyclist injured in collision with car, pick-up truck or van in traffic accident, initial encounter; Y93.55 Activity, bike riding; F17.210 Nicotine dependence, cigarettes, uncomplicated; Z71.6 Tobacco abuse counseling; Z91.040 Latex allergy status; Z88.0 Allergy status to penicillin
CPT/HCPCS: 99406; 99283; 73030; A9270 ×3

== ENCOUNTER 2017-04-04 02:47 | Emergency (ER) | payer MEDICARE ==
[2017-04-04 02:57] VITALS: BP 133/82
[2017-04-04] MEDS ORDERED: ONDANSETRON 4 MG TAB.RAPDIS PO ONE (03:11)
--- NOTE | 2017-04-04 06:30 | ER Document Report ---
ED General - General Mode of Arrival: Ambulatory Information source: Patient TRAVEL OUTSIDE OF THE [place] IN LAST 30 DAYS: No - HPI Patient complains to provider of: Chest and Back Pain Onset: Other - few weeks ago Associated symptoms: Other - see notes above - General Chief Complaint: Nausea Stated Complaint: NAUSEA Time Seen by Provider: 04/04/17 06:23 Notes: 26 year old male with history of alcohol related pancreatitis presents to the ED complaining of intermittent left lower chest and back pain that started a few weeks ago and worsened this morning. Patient reports the pain lasts anywhere from a few minutes to longer. Patient additionally complains of pain with deep breathing, cough, fever, chills, vomiting (4x a day), diarrhea (4-5x a day), blurry vision, and burning with urination. Patient describes his pain as if "someone is grabbing my insides." (LESLEE SADLER) - Related Data Allergies/Adverse Reactions: latex [Latex] Allergy (Unknown, Verified 04/04/17 05:47) Penicillins Allergy (Verified 04/04/17 05:47) bees Allergy (Uncoded 04/04/17 05:47) Past Medical History - General Information source: Patient - Social History Smoking Status: Current Every Day Smoker Chew tobacco use (# tins/day): No Frequency of alcohol use: None Drug Abuse: None Family History: Arthritis, CVA, DM, Hypertension, Malignancy. denies: CAD, COPD , Hyperlipidemia, Thyroid Disfunction Patient has suicidal ideation: No Patient has homicidal ideation: No Neurological Medical History: Reports: Hx Seizures - Patient reports 3 seizures , but thinks they were drug-induced. 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 Musculoskeltal Medical History: Reports Hx Arthritis - hands Psychiatric Medical History: Reports: Hx Attention Deficit Hyperactivity Disorder, Hx Bipolar Disorder, Hx Depression, Hx Schizophrenia - Immunizations Immunizations up to date: Yes Hx Diphtheria, Pertussis, Tetanus Vaccination: Yes - 2012 Review of Systems - Review of Systems Constitutional: See HPI, Chills, Fever EENT: See HPI, Blurred vision Cardiovascular: See HPI, Chest pain Respiratory: See HPI, Cough. denies: Sputum Gastrointestinal: See HPI, Diarrhea, Vomiting Genitourinary: See HPI, Burning Male Genitourinary: No symptoms reported Musculoskeletal: See HPI, Back pain Skin: No symptoms reported Hematologic/Lymphatic: No symptoms reported Neurological/Psychological: No symptoms reported -: Yes All other systems reviewed and negative Physical Exam - Vital signs Vitals: Temp Pulse Resp BP Pulse Ox 98.8 F 99 18 133/82 H 98 04/04/17 02:56 04/04/17 02:56 04/04/17 02:56 04/04/17 02:56 04/04/17 02:56 - Notes Notes: GENERAL: Alert, interacts well. No acute distress. HEAD: Normocephalic, atraumatic. EYES: Pupils equal, round, and reactive to light. Extraocular movements intact. ENT: Oral mucosa moist, tongue midline. NECK: Full range of motion. Supple. Trachea midline. LUNGS: Clear to auscultation bilaterally, no wheezes, rales, or rhonchi. No respiratory distress. HEART: Regular rate and rhythm. No murmurs, gallops, or rubs. ABDOMEN: Soft. Non-distended. Bowel sounds present in all 4 quadrants. RUQ and LUQ abdominal tenderness to palpation. No epigastric tenderness to palpation. BACK: Complains of diffuse back pain with light touch. EXTREMITIES: Moves all 4 extremities spontaneously. No edema, radial and dorsalis pedis pulses 2/4 bilaterally. No cyanosis. NEUROLOGICAL: Alert and oriented x3. Normal speech. PSYCH: Normal affect, normal mood. SKIN: Warm, dry, normal turgor. No rashes or lesions noted. (LESLEE SADLER) Course - Re-evaluation Re-evalutation: 04/04/17 14:56 Discussed with patient plan to check CBC, CMP, lipase and urinalysis given his complaints and his history of pancreatitis. As I was entering the orders into the computer the nurse informed me that the patient had eloped as he was sick and tired of waiting for a doctor to come and see him. I am not certain why the patient thinks he had not just been seen by a doctor. 04/04/17 14:57 (KARYN CARRILLO) - Vital Signs Vital signs: Temp Pulse Resp BP Pulse Ox 98.8 F 99 18 133/82 H 98 04/04/17 02:56 04/04/17 02:56 04/04/17 02:56 04/04/17 02:56 04/04/17 02:56 Discharge - Discharge Clinical Impression: Nausea vomiting and diarrhea Back pain Qualifiers: Back pain location: thoracic back pain Chronicity: chronic Back pain laterality : bilateral Qualified Code(s): M54.6 - Pain in thoracic spine; G89.29 - Other chronic pain; G89.29 - Other chronic pain Condition: Stable Disposition: ELOPED Referrals: NOEL SIDDIQUI DO [Primary Care Provider] - Follow up as needed Scribe Attestation: 04/04/17 14:59 I personally performed the services described in the documentation, reviewed and edited the documentation which was dictated to the scribe in my presence, and it accurately records my words and actions. (KARYN CARRILLO) Scribe Documentation - Scribe Written by Vickie:: Vickie Zelaya, 04/04/2017 [id number] acting as scribe for :: Lindsey
== END 2017-04-04 06:45 | disposition left against medical advice (07) ==
LOC: ER 02:47
DX: R11.2 Nausea with vomiting, unspecified (principal); R19.7 Diarrhea, unspecified; M54.6 Pain in thoracic spine; G89.29 Other chronic pain; F17.200 Nicotine dependence, unspecified, uncomplicated; Z91.040 Latex allergy status; Z88.0 Allergy status to penicillin; Z91.030 Bee allergy status
CPT/HCPCS: 99281; A9270; S0119

== ENCOUNTER 2017-05-07 21:22 | Emergency (ER) | payer MEDICARE ==
[2017-05-07] MEDS ORDERED: IBUPROFEN 800 MG TABLET PO ONE (23:47)
[2017-05-07] MEDS ORDERED: CLINDAMYCIN HCL 150 MG CAPSULE PO ONE (23:47)
--- NOTE | 2017-05-07 23:49 | ER Document Report ---
HPI - HPI Patient complains to provider of: Dental pain Onset: Last week Onset/Duration: Persistent Quality of pain: Achy Pain Level: 3 Context: Patient presents complaining of dental pain from a broken tooth for the past week. Patient denies any fever or facial swelling. Patient denies any nausea or vomiting. Patient also reports that he has a history of chronic intermittent abdominal pain over the past 4 years and while he is here "would like to have his pancreatitis evaluated". Patient denies any alcohol use. Patient's appetite has been normal. Associated Symptoms: Other - Dental pain, chronic intermittent abdominal pain. denies: Nonproductive cough, Productive cough, Fever, Nausea, Vomiting Exacerbated by: Denies Relieved by: Denies Similar symptoms previously: Yes Recently seen / treated by doctor: No - ROS ROS below otherwise negative: Yes Systems Reviewed and Negative: Yes All other systems reviewed and negative - CONSTITUTIONAL Constitutional: DENIES: Fever, Chills - EENT EENT: DENIES: Sore Throat, Congestion Notes: Dental pain - CARDIOVASCULAR Cardiovascular: DENIES: Chest pain - RESPIRATORY Respiratory: DENIES: Trouble Breathing, Coughing - GASTROINTESTINAL Gastrointestinal: REPORTS: Abdominal Pain - Chronic. DENIES: Nausea, Patient vomiting, Diarrhea - URINARY Urinary: DENIES: Dysuria - MUSCULOSKELETAL Musculoskeletal: DENIES: Back Pain - DERM Skin Color: Normal Skin Problems: None Past Medical History - General Information source: Patient - Social History Smoking Status: Current Every Day Smoker Chew tobacco use (# tins/day): No Smoking Education Provided: Yes Frequency of alcohol use: None Drug Abuse: Cocaine Occupation: None Lives with: Spouse/Significant other Family History: Arthritis, CVA, DM, Hypertension, Malignancy. denies: CAD, COPD , Hyperlipidemia, Thyroid Disfunction Patient has suicidal ideation: No Patient has homicidal ideation: No Neurological Medical History: Reports: Hx Seizures - Patient reports 3 seizures , but thinks they were drug-induced. 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 Musculoskeltal Medical History: Reports Hx Arthritis - hands Psychiatric Medical History: Reports: Hx Attention Deficit Hyperactivity Disorder, Hx Bipolar Disorder, Hx Depression, Hx Schizophrenia Past Surgical History: Reports: Hx Oral Surgery - Immunizations Immunizations up to date: Yes Hx Diphtheria, Pertussis, Tetanus Vaccination: Yes - 2013 [facility] Provider Document - CONSTITUTIONAL Agree With Documented VS: Yes Exam Limitations: No Limitations General Appearance: WD/WN, No Apparent Distress - INFECTION CONTROL TRAVEL OUTSIDE OF THE [place] IN LAST 30 DAYS: No - HEENT HEENT: Atraumatic, Normocephalic Mouth Diagram: 1 - Dental decay, tenderness, no gingival abscess, no trismus - NECK Neck: Normal Inspection, Supple. negative: Lymphadenopathy-Left, Lymphadenopathy-Right - RESPIRATORY Respiratory: Breath Sounds Normal, No Respiratory Distress - CARDIOVASCULAR Cardiovascular: Regular Rate, Regular Rhythm, No Murmur - GI/ABDOMEN Gastrointestinal: Abdomen Soft, Abdomen Tender - tenderness to epigastric area, No Organomegaly - BACK Back: Normal Inspection. negative: CVA Tenderness-Right, CVA Tenderness-Left - MUSCULOSKELETAL/EXTREMETIES Musculoskeletal/Extremeties: MAEW - NEURO Level of Consciousness: Awake, Alert, Appropriate Motor/Sensory: No Motor Deficit - DERM Integumentary: Warm, Dry, No Rash Course - Re-evaluation Re-evalutation: 05/08/17 01:13 Patient's laboratory evaluation does not demonstrate any findings concerning for hepatitis, pancreatitis or any biliary obstruction. Patient states that he just wanted to have pancreatitis reevaluated as he has been having intermittent abdominal pain symptoms off and on for the past 4 years. Patient was evaluated in the emergency department last month for this complaint and had a negative CT scan of the abdomen and pelvis. Patient abdomen is soft, patient is nontoxic in appearance. Will treat patient's chief complaint of dental pain and advised outpatient follow-up with a primary care provider as well as a dentist. Good return precautions given. Patient presents with abdominal pain without signs of peritonitis or other life-threatening or serious etiology. Patient appears stable for discharge and has been instructed to return immediately if the symptoms worsen in any way, or in 8-12 hours if not improved for reevaluation. The patient has been instructed to return if the symptoms worsen or change in any way. - Vital Signs Vital signs: Temp Pulse Resp BP Pulse Ox 98.6 F 102 H 18 136/92 H 98 05/07/17 21:33 05/07/17 21:33 05/07/17 21:33 05/07/17 21:33 05/07/17 21:33 - Laboratory Result Diagrams: 05/08/17 00:39 05/08/17 00:39 Laboratory results interpreted by me: 05/08/17 01:13 Labs- Entire Visit 05/08/17 05/08/17 00:39 00:39 WBC 9.7 RBC 4.79 Hgb 14.6 Hct 41.6 MCV 87 MCH 30.5 MCHC 35.1 RDW 13.3 Plt Count 267 Seg Neutrophils % 50.6 Lymphocytes % 38.9 Monocytes % 7.0 Eosinophils % 2.0 Basophils % 1.5 Absolute Neutrophils 4.9 Absolute Lymphocytes 3.8 Absolute Monocytes 0.7 Absolute Eosinophils 0.2 Absolute Basophils 0.1 Sodium 141.2 Potassium 4.3 Chloride 106 Carbon Dioxide 25 Anion Gap 10 BUN 17 Creatinine 0.72 Est GFR ( Amer) > 60 Est GFR (Non-Af Amer) > 60 Glucose 86 Calcium 9.9 Total Bilirubin 1.1 Direct Bilirubin 0.4 Neonat Total Bilirubin Not Reportable Neonat Direct Bilirubin Not Reportable Neonat Indirect Bili Not Reportable AST 39 ALT 62 Alkaline Phosphatase 56 Total Protein 7.6 Albumin 4.7 Lipase 158.0 Discharge - Discharge Clinical Impression: Chronic abdominal pain, Pain due to dental caries Condition: Stable Disposition: HOME, SELF-CARE Instructions: Abdominal Pain ([facility]), Anti-Inflammatory Medication ([facility]), Clindamycin ([facility]), Toothache ([facility]) Additional Instructions: Return immediately for any new or worsening symptoms Followup with your primary care provider, call tomorrow to make a followup appointment Follow-up with a dental care provider Return in 12 hours for repeat abdominal examination if your symptoms have not improved. Prescriptions: Clindamycin HCl [Cleocin 300 mg Capsule] 300 mg PO TID #21 capsule Naproxen [Naprosyn 250 Nmg Tablet] 1 tab PO BID #14 tablet Forms: Smoking Cessation Education Referrals: [facility] [Provider Group] - Follow up as needed [facility] [Provider Group] - Follow up as needed [facility] [Provider Group] - Follow up tomorrow
[2017-05-08 00:49] LABS: ABSOLUTE BASOPHILS # (AUTO) 0.1 10^3/uL (0.0-0.2); ABSOLUTE EOSINOPHILS # (AUTO) 0.2 10^3/uL (0.0-0.6); ABSOLUTE LYMPHOCYTES (AUTO) 3.8 10^3/uL (0.5-4.7); ABSOLUTE MONOCYTES (AUTO) 0.7 10^3/uL (0.1-1.4); ABSOLUTE NEUT (AUTO) 4.9 10^3/uL (1.7-8.2); BASOPHILS % (AUTO) 1.5 % (0-2); HEMATOCRIT 41.6 % (37.9-51.0); HEMOGLOBIN 14.6 g/dL (13.5-17.0); LYMPHOCYTES % (AUTO) 38.9 % (13-45); MEAN CORPUSCULAR HEMOGLOBIN 30.5 pg (27.0-33.4); MEAN CORPUSCULAR HGB CONC 35.1 g/dL (32.0-36.0); MEAN CORPUSCULAR VOLUME 87 fl (80-97); PLATELET COUNT 267 10^3/uL (150-450); RED BLOOD COUNT 4.79 10^6/uL (4.35-5.55); RED CELL DISTRIBUTION WIDTH 13.3 % (11.5-14.0); SEGMENTED NEUTROPHILS % (AUTO) 50.6 % (42-78); TOTAL CELLS COUNTED % (AUTO) 100 %; WHITE BLOOD COUNT 9.7 10^3/uL (4.0-10.5)
[2017-05-08 01:09] LABS: ALANINE AMINOTRANSFERASE 62 U/L (21-72); ALBUMIN 4.7 g/dL (3.5-5.0); ALKALINE PHOSPHATASE 56 U/L (38-126); ANION GAP 10 (5-19); ASPARTATE AMINO TRANSFERASE 39 U/L (17-59); BILIRUBIN,DIRECT 0.4 mg/dL (0.0-0.4); BILIRUBIN,TOTAL 1.1 mg/dL (0.2-1.3); BLOOD UREA NITROGEN 17 mg/dL (7-20); CALCIUM 9.9 mg/dL (8.4-10.2); CARBON DIOXIDE 25 mmol/L (22-30); CHLORIDE 106 mmol/L (98-107); GLUCOSE 86 mg/dL (75-110); POTASSIUM 4.3 mmol/L (3.6-5.0); SODIUM 141.2 mmol/L (137-145); TOTAL PROTEIN 7.6 g/dL (6.3-8.2)
[2017-05-08 01:51] VITALS: BP 128/89
== END 2017-05-08 01:52 | disposition home or self-care (01) ==
LOC: ER 21:22
DX: K02.9 Dental caries, unspecified (principal); K08.89 Other specified disorders of teeth and supporting structures; R10.9 Unspecified abdominal pain; G89.29 Other chronic pain; R10.816 Epigastric abdominal tenderness; F14.10 Cocaine abuse, uncomplicated; F17.200 Nicotine dependence, unspecified, uncomplicated; Z87.19 Personal history of other diseases of the digestive system
CPT/HCPCS: 99284; 36415; 83690; 85025; 80053; G0378 ×2; A9270 ×2

== ENCOUNTER 2017-05-09 21:22 | Emergency (ER) | payer MEDICARE ==
[2017-05-09 21:54] LABS: ABSOLUTE BASOPHILS # (AUTO) 0.1 10^3/uL (0.0-0.2); ABSOLUTE EOSINOPHILS # (AUTO) 0.2 10^3/uL (0.0-0.6); ABSOLUTE LYMPHOCYTES (AUTO) 3.2 10^3/uL (0.5-4.7); ABSOLUTE MONOCYTES (AUTO) 0.5 10^3/uL (0.1-1.4); ABSOLUTE NEUT (AUTO) 5.3 10^3/uL (1.7-8.2); BASOPHILS % (AUTO) 1.3 % (0-2); HEMATOCRIT 43.9 % (37.9-51.0); HEMOGLOBIN 15.1 g/dL (13.5-17.0); LYMPHOCYTES % (AUTO) 34.1 % (13-45); MEAN CORPUSCULAR HEMOGLOBIN 30.2 pg (27.0-33.4); MEAN CORPUSCULAR HGB CONC 34.3 g/dL (32.0-36.0); MEAN CORPUSCULAR VOLUME 88 fl (80-97); MONOCYTES % (AUTO) 5.6 % (3-13); PLATELET COUNT 275 10^3/uL (150-450); RED BLOOD COUNT 4.98 10^6/uL (4.35-5.55); RED CELL DISTRIBUTION WIDTH 13.3 % (11.5-14.0); TOTAL CELLS COUNTED % (AUTO) 100 %; WHITE BLOOD COUNT 9.3 10^3/uL (4.0-10.5)
[2017-05-09 22:15] LABS: URINE AMPHETAMINES SCREEN NEGATIVE; URINE BARBITURATES SCREEN NEGATIVE; URINE BENZODIAZEPINES SCREEN NEGATIVE; URINE COCAINE SCREEN NEGATIVE; URINE MARIJUANA (THC) SCREEN NEGATIVE; URINE METHADONE SCREEN NEGATIVE; URINE PHENCYCLIDINE SCREEN NEGATIVE
[2017-05-09 22:20] LABS: APPEARANCE,URINE CLEAR; BILIRUBIN,URINE NEGATIVE (NEGATIVE); COLOR,URINE COLORLESS; GLUCOSE, URINE NEGATIVE (NEGATIVE); KETONES,URINE NEGATIVE (NEGATIVE); NITRITE,URINE NEGATIVE (NEGATIVE); PROTEIN,URINE NEGATIVE (NEGATIVE); URINE SPECIFIC GRAVITY 1.009; UROBILINOGEN,URINE NEGATIVE mg/dL (<2.0)
[2017-05-09 22:21] LABS: LEUKOCYTE ESTERASE,URINE NEGATIVE (NEGATIVE)
[2017-05-09 22:23] LABS: ALANINE AMINOTRANSFERASE 59 U/L (21-72); ALBUMIN 5.1 g/dL (3.5-5.0); ALKALINE PHOSPHATASE 60 U/L (38-126); ANION GAP 12 (5-19); ASPARTATE AMINO TRANSFERASE 42 U/L (17-59); BILIRUBIN,DIRECT 0.4 mg/dL (0.0-0.4); BILIRUBIN,TOTAL 0.8 mg/dL (0.2-1.3); BLOOD UREA NITROGEN 11 mg/dL (7-20); CALCIUM 10.2 mg/dL (8.4-10.2); CARBON DIOXIDE 27 mmol/L (22-30); CHLORIDE 102 mmol/L (98-107); GLUCOSE 127 mg/dL (75-110); POTASSIUM 4.1 mmol/L (3.6-5.0); TOTAL PROTEIN 8.2 g/dL (6.3-8.2)
[2017-05-09 22:38] LABS: ACETAMINOPHEN < 10 ug/mL (10-30); ALCOHOL < 10 mg/dL (NONE DETECTED); SALICYLATE < 1.0 mg/dL (2.0-20.0)
--- NOTE | 2017-05-09 22:42 | ER Document Report ---
ED Psych Disorder / Suicide - General Mode of Arrival: Ambulatory Information source: Patient, Relative TRAVEL OUTSIDE OF THE [place] IN LAST 30 DAYS: No - HPI Patient complains to provider of: Suicidal plan <FAN CHAMORROCAPRI - Last Filed: 05/09/17 22:40> <PARRCARMEN - Last Filed: 05/10/17 09:44> <NOEL OCONNOR - Last Filed: 05/10/17 10:49> - General Chief Complaint: Psych Problem Stated Complaint: STOMACH/BACK PAIN/PSYCH EVAL Time Seen by Provider: 05/09/17 22:40 Notes: History of complain 26 years old male-with a history of depression and suicidal ideation, not taking any medications. Clayton like killing himself. He said I have to cons I wanted to shoot myself. Denies any specific reason. Denies any hallucination. Denies any other constitutional symptoms REVIEW OF SYSTEMS: CONSTITUTIONAL : Denies fever, chills, or sweats. Denies recent illness. EENT: Denies eye, ear, throat, or mouth pain or symptoms. Denies nasal or sinus congestion or discharge. Denies throat, tongue, or mouth swelling or difficulty swallowing. CARDIOVASCULAR: Denies chest pain. Denies palpitations or racing or irregular heart beat. Denies ankle edema. RESPIRATORY: Denies cough, cold, or chest congestion. Denies shortness of breath, difficulty breathing, or wheezing. GASTROINTESTINAL: Denies abdominal pain or distention. Denies nausea, vomiting , or diarrhea. Denies blood in vomitus, stools, or per rectum. Denies black, tarry stools. Denies constipation. GENITOURINARY: Denies difficulty urinating, painful urination, burning, frequency, blood in urine, or discharge. MUSCULOSKELETAL: Denies back or neck pain or stiffness. Denies joint pain or swelling. SKIN: Denies rash, lesions or sores. HEMATOLOGIC : Denies easy bruising or bleeding. LYMPHATIC: Denies swollen, enlarged glands. NEUROLOGICAL: Denies confusion or altered mental status. Denies passing out or loss of consciousness. Denies dizziness or lightheadedness. Denies headache. Denies weakness or paralysis or loss of use of either side. Denies problems with gait or speech. Denies sensory loss, numbness, or tingling. Denies seizures. PSYCHIATRIC: As per history of complain ALL OTHER SYSTEMS REVIEWED AND NEGATIVE. Dictation was performed using [employer] voice recognition software PHYSICAL EXAMINATION: GENERAL: Well-appearing, well-nourished and in no acute distress. HEAD: Atraumatic, normocephalic. EYES: Pupils equal round and reactive to light, extraocular movements intact, sclera anicteric, conjunctiva are normal. ENT: Nares patent, oropharynx clear without exudates. Moist mucous membranes. NECK: Normal range of motion, supple without lymphadenopathy LUNGS: Breath sounds clear to auscultation bilaterally and equal. No wheezes rales or rhonchi. HEART: Regular rate and rhythm without murmurs ABDOMEN: Soft, nontender, nondistended abdomen. No guarding, no rebound. No masses appreciated. Musculoskeletal: Normal range of motion, no pitting or edema. No cyanosis. NEUROLOGICAL: Cranial nerves grossly intact. Normal speech, normal gait. Normal sensory, motor exams PSYCH: Depression and suicidal SKIN: Warm, Dry, normal turgor, no rashes or lesions noted. (FRANKIE CHAMORRO) - Related Data Allergies/Adverse Reactions: latex [Latex] Allergy (Unknown, Verified 04/04/17 05:47) Penicillins Allergy (Verified 04/04/17 05:47) bees Allergy (Uncoded 04/04/17 05:47) Past Medical History - Social History Smoking Status: Unknown if Ever Smoked Family History: Reviewed & Not Pertinent, Arthritis, CVA, DM, Hypertension, Malignancy. denies: CAD, COPD, Hyperlipidemia, Thyroid Disfunction Neurological Medical History: Reports: Hx Seizures - Patient reports 3 seizures , but thinks they were drug-induced. 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 Musculoskeltal Medical History: Reports Hx Arthritis - hands Psychiatric Medical History: Reports: Hx Attention Deficit Hyperactivity Disorder, Hx Bipolar Disorder, Hx Depression, Hx Schizophrenia Past Surgical History: Reports: Hx Oral Surgery - Immunizations Immunizations up to date: Yes Hx Diphtheria, Pertussis, Tetanus Vaccination: Yes - 2012 <FRANKIE CHAMORRO - Last Filed: 05/09/17 22:40> Review of Systems <FRANKIE CHAMORRO - Last Filed: 05/09/17 22:40> <CARMEN PARR - Last Filed: 05/10/17 09:44> <NOEL OCONNOR - Last Filed: 05/10/17 10:49> - Review of Systems Notes: As per history of complain (FRANKIE CHAMORRO) - Vital signs Vitals: Temp Pulse Resp BP Pulse Ox 98.6 F 96 16 134/93 H 98 05/09/17 21:37 05/09/17 21:37 05/09/17 21:37 05/09/17 21:37 05/09/17 21:37 Course - Laboratory Result Diagrams: 05/09/17 21:45 05/09/17 21:45 <FRANKIE CHAMORRO - Last Filed: 05/09/17 22:40> - Laboratory Result Diagrams: 05/09/17 21:45 05/09/17 21:45 <CARMEN PARR - Last Filed: 05/10/17 09:44> - Laboratory Result Diagrams: 05/09/17 21:45 05/09/17 21:45 <NOEL OCONNOR - Last Filed: 05/10/17 10:49> - Vital Signs Vital signs: Temp Pulse Resp BP Pulse Ox 98.6 F 94 17 124/60 95 05/10/17 06:08 05/10/17 06:08 05/10/17 06:08 05/10/17 06:08 05/10/17 06:08 - Laboratory Laboratory results interpreted by me: 05/09/17 05/09/17 21:45 21:45 Glucose 127 H Albumin 5.1 H Urine Blood SMALL H Salicylates < 1.0 L Acetaminophen < 10 L Discharge <FRANKIE CHAMORRO - Last Filed: 05/09/17 22:40> <CARMEN PARR - Last Filed: 05/10/17 09:44> <NOEL OCONNOR - Last Filed: 05/10/17 10:49> - Discharge Clinical Impression: Substance abuse Depression Qualifiers: Depression Type: unspecified Qualified Code(s): F32.9 - Major depressive disorder, single episode, unspecified Condition: Stable Disposition: HOME, SELF-CARE Additional Instructions: COCAINE ABUSE: Cocaine causes many dangerous medical problems. Problems can occur even with "usual" amounts. Cocaine affects judgement, creating a sense of invulnerability. Cocaine users often make bad decisions that seem "great" at the time. Most cocaine users eventually will be hurt by bad job performance, damaged personal relations, crime, and unsafe sexual practices. Toxic effects of cocaine can include seizures, hallucinations, delusions, high blood pressure, heart damage, or sudden . There's always the risk of a "bad batch." But heart attacks, brain hemorrhages, or cardiac arrest can occur unpredictably even with "normal" use. Injection of cocaine is risky for abscesses, endocarditis (heart infection) , pneumonia, and AIDS. Withdrawal from cocaine often causes anxiety and drug cravings. Some users become paranoid and psychotic. Many treatment programs are available, but you must make the decision to quit. Medication can be prescribed to control the symptoms of cocaine toxicity (beta blockers or benzodiazepines). Withdrawal symptoms may require tranquilizers. Counseling Services It has been recommended that you seek professional counseling to assist you with the stresses that you are experiencing. Most people at some time in their lives experience personal problems with which they need help. Pride and feeling that one can't be helped keep a lot of people from the benefits of counseling. DEPRESSION: Your evaluation reveals that you have mental depression. While symptoms may be vague, they often include disturbance of sleep, fatigue, loss of appetite , and general loss of interest in life. While depression may be a side effect of drugs, or a reaction to a major change in your life, many cases have no known cause. If depression is acute, and related to a major loss in your life, you can expect it to clear completely with time. If you have been depressed a long time , are prone to repeated bouts of depression or low mood, or have been thinking of suicide, get help. Depression can be treated with anti-depressant medication and counselling. Long-term depression will often take a few weeks to clear, even with appropriate medication. Follow-up care is important. SUICIDAL IDEATION: Suicidal ideation is a common medical term for thoughts about suicide, which may be as detailed as a formulated plan, without the suicidal act itself. Although most people who undergo suicidal ideation do not commit suicide, some go on to make suicide attempts. The range of suicidal ideation varies greatly from fleeting to detailed planning, role playing, and unsuccessful attempts. While thoughts about suicide are common, most people do not carry out serious actions to commit suicide. Based upon your evaluation and discussion with you, we do not believe you are currently at risk to act upon your thoughts of suicide. You have agreed to return to the Emergency Department, at any time , if you feel inclined to act upon your suicidal thoughts. FOLLOW-UP CARE: If you experience worsening or a significant change in your symptoms, notify the physician immediately or return to the Emergency Department at any time for re-evaluation.
[2017-05-09] MEDS ORDERED: LORAZEPAM 1 MG TABLET PO ONE (22:43)
[2017-05-10] MEDS ORDERED: LORAZEPAM 1 MG TABLET PO ONE (00:46)
[2017-05-10] MEDS ORDERED: NICOTINE 14 MG/24 HR PATCH.TD24 TD ONE (01:51)
--- NOTE | 2017-05-10 07:45 | EKG REPORT ---
SEVERITY:- NORMAL ECG - SINUS RHYTHM : Confirmed by: Cong Serna MD 10-May-2017 07:45:16
[2017-05-10 10:55] VITALS: BP 128/82
--- NOTE | 2017-05-10 11:02 | ER Document Report ---
Doctor's Note Notes: 05/10/17 11:01 Rounds: Chart reviewed and patient interviewed. Patient says he is here because of abdominal pains and concern that his pancreatitis may have reoccurred. 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 However , reviewing the patient's chart, there is not one word about him having abdominal pains. He says he is here because of depression and suicidal thoughts. Patient's abdomen is very soft and nontender. A lipase was not ordered. CBC was normal. Vital signs are all normal. All other lab studies unremarkable. Patient appears to be medically stable for transfer or discharge. Mental health has assessed the patient and feels he can be discharged for outpatient follow-up. Angela Saha MD
== END 2017-05-10 11:02 | disposition home or self-care (01) ==
LOC: ER 21:22
DX: F32.9 Major depressive disorder, single episode, unspecified (principal); F19.10 Other psychoactive substance abuse, uncomplicated; R45.851 Suicidal ideations; Z91.040 Latex allergy status; Z88.0 Allergy status to penicillin; Z91.030 Bee allergy status; R10.9 Unspecified abdominal pain
CPT/HCPCS: 93005; 99284; 36415; 80307 ×4; 85025; 80053; 81001; 93010; A9270

== ENCOUNTER 2017-05-26 23:58 | Emergency (ER) | payer MEDICARE ==
[2017-05-27 00:36] VITALS: BP 122/77
[2017-05-27] MEDS ORDERED: ACETAMINOPHEN 325 MG TABLET PO ONE (00:36)
[2017-05-27] MEDS ORDERED: ONDANSETRON 4 MG TAB.RAPDIS PO ONE (00:36)
[2017-05-27] MEDS ORDERED: DICYCLOMINE HCL INJ 20 MG/2 ML AMPULE IM ONE (00:36)
[2017-05-27 00:43] LABS: ABSOLUTE BASOPHILS # (AUTO) 0.1 10^3/uL (0.0-0.2); ABSOLUTE EOSINOPHILS # (AUTO) 0.1 10^3/uL (0.0-0.6); ABSOLUTE MONOCYTES (AUTO) 0.5 10^3/uL (0.1-1.4); ABSOLUTE NEUT (AUTO) 4.6 10^3/uL (1.7-8.2); BASOPHILS % (AUTO) 1.2 % (0-2); HEMATOCRIT 40.7 % (37.9-51.0); LYMPHOCYTES % (AUTO) 27.5 % (13-45); MEAN CORPUSCULAR HEMOGLOBIN 30.4 pg (27.0-33.4); MEAN CORPUSCULAR HGB CONC 34.4 g/dL (32.0-36.0); MEAN CORPUSCULAR VOLUME 88 fl (80-97); MONOCYTES % (AUTO) 6.7 % (3-13); PLATELET COUNT 217 10^3/uL (150-450); RED CELL DISTRIBUTION WIDTH 13.6 % (11.5-14.0); SEGMENTED NEUTROPHILS % (AUTO) 62.6 % (42-78); TOTAL CELLS COUNTED % (AUTO) 100 %; WHITE BLOOD COUNT 7.4 10^3/uL (4.0-10.5)
[2017-05-27] MEDS ORDERED: DICYCLOMINE HCL 20 MG TABLET PO ONE (00:45)
--- NOTE | 2017-05-27 00:45 | ER Document Report ---
ED General - General Stated Complaint: ABDOMINAL PAIN Time Seen by Provider: 05/27/17 00:04 Notes: Patient is a 26-year-old male with frequent emergency department visits who presents with generalized abdominal cramping and pain for the last 2 hours. He describes it as a cramping, aching pain. It is located diffusely in his abdomen without any one specific area of localization. Nothing improves or worsens the pain. He states that he feels like this might be his pancreatitis and states he has a history of chronic pancreatitis. However review of his history clarifies that he does not actually of chronic pancreatitis and that he has misunderstood what this term means. The patient denies any ongoing alcohol use any states prior bouts of pancreatitis were induced by alcohol. He denies any associated nausea, vomiting, diarrhea, fever or constitutional symptoms. He does arrive by EMS. He has not seen his primary care doctor regarding today' s concerns. TRAVEL OUTSIDE OF THE [place] IN LAST 30 DAYS: No - Related Data Allergies/Adverse Reactions: latex [Latex] Allergy (Unknown, Verified 04/04/17 05:47) Penicillins Allergy (Verified 04/04/17 05:47) bees Allergy (Uncoded 04/04/17 05:47) Past Medical History - General Information source: Patient, Relative - Social History Smoking Status: Never Smoker Frequency of alcohol use: Occasional Drug Abuse: None Lives with: Spouse/Significant other Family History: Reviewed & Not Pertinent, Arthritis, CVA, DM, Hypertension, Malignancy. denies: CAD, COPD, Hyperlipidemia, Thyroid Disfunction Neurological Medical History: Reports: Hx Seizures - Patient reports 3 seizures , but thinks they were drug-induced. 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 Musculoskeltal Medical History: Reports Hx Arthritis - hands Psychiatric Medical History: Reports: Hx Attention Deficit Hyperactivity Disorder, Hx Bipolar Disorder, Hx Depression, Hx Schizophrenia Past Surgical History: Reports: Hx Oral Surgery - Immunizations Immunizations up to date: Yes Hx Diphtheria, Pertussis, Tetanus Vaccination: Yes - 2012 Review of Systems - Review of Systems Notes: Constitutional: Negative for fever. HENT: Negative for sore throat. Eyes: Negative for visual changes. Cardiovascular: Negative for chest pain. Respiratory: Negative for shortness of breath. Gastrointestinal: Positive for abdominal pain Genitourinary: Negative for dysuria. Musculoskeletal: Negative for back pain. Skin: Negative for rash. Neurological: Negative for headaches, weakness or numbness. 10 point ROS negative except as marked above and in HPI. Physical Exam - Vital signs Vitals: Temp Pulse Resp BP Pulse Ox 98.7 F 85 18 122/77 95 05/27/17 00:33 05/27/17 00:33 05/27/17 00:33 05/27/17 00:33 05/27/17 00:33 Interpretation: Normal Notes: PHYSICAL EXAMINATION: GENERAL: Well-appearing, well-nourished and in no acute distress. HEAD: Atraumatic, normocephalic. EYES: Pupils equal round and reactive to light, extraocular movements intact, sclera anicteric, conjunctiva are normal. ENT: nares patent, oropharynx clear without exudates. Moist mucous membranes. NECK: Normal range of motion, supple without lymphadenopathy LUNGS: Breath sounds clear to auscultation bilaterally and equal. No wheezes rales or rhonchi. HEART: Regular rate and rhythm without murmurs ABDOMEN: Soft, nontender, normoactive bowel sounds. No guarding, no rebound. No masses appreciated. EXTREMITIES: Normal range of motion, no pitting or edema. No cyanosis. NEUROLOGICAL: No focal neurological deficits. Moves all extremities spontaneously and on command. PSYCH: Cognitive faculties appeared below average. Pleasant on contact. SKIN: Warm, Dry, normal turgor, no rashes or lesions noted. Course - Re-evaluation Re-evalutation: 05/27/17 01:41 Patient presents with generalized abdominal cramping most consistent with acute constipation. The patient has no focal abdominal tenderness on examination, very well in appearance, vitals normal limits and has regular presentations for the same. His labs are unremarkable do not support a diagnosis of an acute pink otitis or acute bony pathology. He has no localization of pain to the right lower quadrant and is clinical history likewise does not support acute appendicitis. Patient has not had a bowel movement in over 5 days and the acute onset of his abdominal pain and generalized nature of the pain as well as his abdominal x-rays to support this diagnosis. I recommended the patient began laxative therapy at home and have instructed him on proper diet regiment to prevent recurrence in the future. At this time will discharge with return precautions and follow-up recommendations. Verbal discharge instructions given a the bedside and opportunity for questions given. Medication warnings reviewed. Patient is in agreement with this plan and has verbalized understanding of return precautions and the need for primary care follow-up in the next 24-72 hours. - Vital Signs Vital signs: Temp Pulse Resp BP Pulse Ox 98.7 F 85 18 122/77 95 05/27/17 00:33 05/27/17 00:33 05/27/17 00:33 05/27/17 00:33 05/27/17 00:33 - Laboratory Result Diagrams: 05/27/17 00:30 05/27/17 00:30 Laboratory results interpreted by me: 05/27/17 00:30 Glucose 136 H - Diagnostic Test Radiology reviewed: Image reviewed, Reports reviewed Radiology results interpreted by me: 05/27/17 02:14 2 view abdomen: Prominent constipation throughout the colon. No free air or evidence of obstruction Discharge - Discharge Clinical Impression: Generalized abdominal pain Constipation Qualifiers: Constipation type: unspecified constipation type Qualified Code(s): K59.00 - Constipation, unspecified Condition: Good Disposition: HOME, SELF-CARE Additional Instructions: You have been seen in the Emergency Department (ED) for abdominal pain. Your evaluation today suggests that your pain is due to constipation. For your constipation: You should take 8 caps of MiraLAX and placed in 1 liter of Gatorade. Drink one half of the solution and wait 4 hours. If you do not have a bowel movement take the remaining half of the solution. Please follow up with your doctor as soon as possible regarding today's emergent visit and the symptoms that are bothering you. Return to the ED if your abdominal pain worsens or fails to improve, you develop bloody vomiting, bloody diarrhea, you are unable to tolerate fluids due to vomiting, fever greater than 101, or other symptoms that concern you.
--- NOTE | 2017-05-27 01:44 | RADIOLOGY REPORT (SQ) ---
EXAM DESCRIPTION: ABDOMEN 2 VIEWS CLINICAL HISTORY: 26 years, Male, abdominal pain, constipation COMPARISON: None. NUMBER OF VIEWS: 2 FINDINGS: Intestinal gas pattern is within normal limits. Paucity of bowel gas. Moderate colonic stool retention throughout. No suspicious calcification. Grossly intact skeletal structures. Mildly enlarged appearance of the partially imaged cardiac silhouette. IMPRESSION: No acute abdominal findings. Mild enlargement of the cardiac silhouette.
[2017-05-27 01:50] LABS: ALANINE AMINOTRANSFERASE 60 U/L (21-72); ALBUMIN 4.2 g/dL (3.5-5.0); ALKALINE PHOSPHATASE 51 U/L (38-126); ANION GAP 11 (5-19); ASPARTATE AMINO TRANSFERASE 39 U/L (17-59); BILIRUBIN,DIRECT 0.4 mg/dL (0.0-0.4); BILIRUBIN,TOTAL 0.8 mg/dL (0.2-1.3); BLOOD UREA NITROGEN 9 mg/dL (7-20); CALCIUM 9.7 mg/dL (8.4-10.2); CARBON DIOXIDE 26 mmol/L (22-30); CHLORIDE 105 mmol/L (98-107); GLUCOSE 136 mg/dL (75-110); LIPASE 123.4 U/L (23-300); SODIUM 142.4 mmol/L (137-145); TOTAL PROTEIN 6.8 g/dL (6.3-8.2)
[2017-05-27] MEDS ORDERED: LACTULOSE SYRUP 20 GM/30 ML UDCUP PO ONE (02:13)
== END 2017-05-27 02:24 | disposition home or self-care (01) ==
LOC: ER 23:58
DX: R10.84 Generalized abdominal pain (principal); K59.00 Constipation, unspecified
CPT/HCPCS: 99284; 36415; 83690; 85025; 80053; 74019; A9270 ×4; J3490; S0119

== ENCOUNTER 2017-06-01 17:02 | Emergency (ER) | payer MEDICARE ==
[2017-06-01] MEDS ORDERED: IBUPROFEN 800 MG TABLET PO ONE (18:38)
--- NOTE | 2017-06-01 18:38 | ER Document Report ---
ED Extremity Problem, Lower - General Chief Complaint: Leg Pain Stated Complaint: LEG PAIN Time Seen by Provider: 06/01/17 18:15 Mode of Arrival: Ambulatory Information source: Patient Notes: 26-year-old male presents to ED for complaint of lump to the left leg. The lump is just below the left knee. It is soft nonpainful unless palpated. He states he always has pain in both knees back but this is not a new problem. He also has a history of drug addiction alcohol suicide ideation. None of these are a problem at this time. He states he has not had any meth cracker pot and almost a month now. He states he has not had any alcohol in almost 2 months. TRAVEL OUTSIDE OF THE [place] IN LAST 30 DAYS: No - HPI Patient complains to provider of: Other - Small lump to the anterior left leg just below the knee Location: Leg Occurred: Other - Is not sure how long it has been there Onset/Duration: Gradual Quality of pain: No pain - No pain except for well with palpation Severity: None Pain Level: Denies Context: Other - Lump just below the left knee Recent injury: No Exacerbated by: Other - Palpation Relieved by: Nothing - Related Data Allergies/Adverse Reactions: latex [Latex] Allergy (Unknown, Verified 06/01/17 17:02) Penicillins Allergy (Verified 06/01/17 17:02) bees Allergy (Uncoded 06/01/17 17:02) Past Medical History - General Information source: Patient - Social History Smoking Status: Current Every Day Smoker Cigarette use (# per day): Yes - 1-1 and half packs per day Chew tobacco use (# tins/day): No Smoking Education Provided: Yes - 4 minutes Frequency of alcohol use: None Drug Abuse: None - Patient states he has not had any meth crack or pot and almost a month he said the next week will be a month Lives with: Family Family History: Reviewed & Not Pertinent, Arthritis, CVA, DM, Hypertension, Malignancy. denies: CAD, COPD, Hyperlipidemia, Thyroid Disfunction Patient has suicidal ideation: No Patient has homicidal ideation: No - Past Medical History Cardiac Medical History: Reports: None Pulmonary Medical History: Reports: None EENT Medical History: Reports: None Neurological Medical History: Reports: Hx Seizures - Patient reports 3 seizures , but thinks they were drug-induced. Endocrine Medical History: Reports: None Renal/ Medical History: Reports: None Malignancy Medical History: Reports None GI Medical History: Reports: Hx Pancreatitis - alcohol related Musculoskeltal Medical History: Reports Hx Arthritis - hands Skin Medical History: Reports None Psychiatric Medical History: Reports: Hx Attention Deficit Hyperactivity Disorder, Hx Bipolar Disorder, Hx Depression - manic, Hx Schizophrenia Traumatic Medical History: Reports: None Infectious Medical History: Reports: None Past Surgical History: Reports: Hx Oral Surgery - Immunizations Immunizations up to date: Yes Hx Diphtheria, Pertussis, Tetanus Vaccination: Yes - 2012 Review of Systems - Review of Systems Constitutional: No symptoms reported EENT: No symptoms reported Cardiovascular: No symptoms reported Respiratory: No symptoms reported Gastrointestinal: No symptoms reported Genitourinary: No symptoms reported Male Genitourinary: No symptoms reported Musculoskeletal: Other - Lipoma to the anterior left leg just below the knee Skin: No symptoms reported Hematologic/Lymphatic: No symptoms reported Neurological/Psychological: No symptoms reported -: Yes All other systems reviewed and negative Physical Exam - Vital signs Vitals: Temp Pulse Resp BP Pulse Ox 98.3 F 106 H 20 133/89 H 95 06/01/17 17:13 06/01/17 17:13 06/01/17 17:13 06/01/17 17:13 06/01/17 17:13 Interpretation: Normal - General General appearance: Appears well, Alert - HEENT Head: Normocephalic, Atraumatic Eyes: Normal Pupils: PERRL - Respiratory Respiratory status: No respiratory distress Chest status: Nontender Breath sounds: Normal Chest palpation: Normal - Cardiovascular Rhythm: Regular Heart sounds: Normal auscultation Murmur: No - Abdominal Inspection: Normal Distension: No distension Bowel sounds: Normal Tenderness: Nontender Organomegaly: No organomegaly - Back Back: Normal, Tender - Chronic pain to the lower back no changes in the pain no falls no injuries - Extremities General upper extremity: Normal inspection, Nontender, Normal color, Normal ROM , Normal temperature General lower extremity: Nontender, Normal color, Normal ROM, Normal temperature , Normal weight bearing. No: Justine's sign Calf: Other - Lipoma to the anterior left leg just below the knee chronic pain to the knee bilaterally - Neurological Neuro grossly intact: Yes Cognition: Normal Orientation: AAOx4 Jovan Coma Scale Eye Opening: Spontaneous Jovan Coma Scale Verbal: Oriented Jovan Coma Scale Motor: Obeys Commands Jovan Coma Scale Total: 15 Speech: Normal Motor strength normal: LUE, RUE, LLE, RLE Sensory: Normal - Psychological Associated symptoms: Normal affect, Normal mood - Skin Skin Temperature: Warm Skin Moisture: Dry Skin Color: Normal Course - Re-evaluation Re-evalutation: 06/01/17 18:55 This gentleman presented today for a small lipoma to the left lower leg just below the knee. There is no redness no swelling no inflammation. Patient states it does not hurt unless he palpates it. Patient instructed not to mess with the area leave it alone and to follow-up with the surgeon if it continues to grow. After performing a Medical Screening Examination, I estimate there is LOW risk for EXPANDING OR RUPTURED ABDOMINAL AORTIC ANEURYSM, CAUDA EQUINA SYNDROME, EPIDURAL MASS LESION, or HERNIATED DISK CAUSING SEVERE SPINAL STENOSIS , thus I consider the discharge disposition reasonable. I have reevaluated this patient multiple times and no significant life threatening changes are noted. The patient and I have discussed the diagnosis and risks, and we agree with discharging home and close follow-up. We also discussed returning to the Emergency Department immediately if new or worsening symptoms occur with the understanding that symptoms and presentations can change. We have discussed the symptoms which are most concerning (e.g., saddle anesthesia, urinary or bowel incontinence or retention, changing or worsening pain) that necessitate immediate return. - Vital Signs Vital signs: Temp Pulse Resp BP Pulse Ox 98.3 F 106 H 20 133/89 H 95 06/01/17 17:13 06/01/17 17:13 06/01/17 17:13 06/01/17 17:13 06/01/17 17:13 Discharge - Discharge Clinical Impression: small lump just below anterior left knee Condition: Stable Disposition: HOME, SELF-CARE Instructions: Family Physicians / Practices Additional Instructions: You were seen today for a small lump just below the left knee. This appears to be a lipoma or fatty tumor. There is no treatment needed for this at this time. It is not inflamed it is not infected as it is not red or painful unless it is palpated. Acetaminophen Acetaminophen may be taken for pain relief or fever control. It's much safer than aspirin, offering a wider range of "safe" dosages. It is safe during . Some brand names are Tylenol, Panadol, Datril, Anacin 3, Tempra, and Liquiprin. Acetaminophen can be repeated every four hours. The following are maximum recommended dosages: WEIGHT Dose Drops Elixir Chewable( 80mg) (LBS.) drprs=droppers tsp=teaspoon 6 40 mg .4 ml (1/2) 6-11 80 mg .8 ml (full) 1/2 tsp 1 tab 12-16 120 mg 1 1/2 drprs 3/4 tsp 1 1/2 tabs 17-23 160 mg 2 drprs 1 tsp 2 tabs 24-30 240 mg 3 drprs 1 1/2 tsp 3 tabs 30-35 320 mg 2 tsp 4 tabs 36-41 360 mg 2 1/4 tsp 4 1 /2 tabs 42-47 400 mg 2 1/2 tsp 5 tabs 48-53 480 mg 3 tsp 6 tabs 54-59 520 mg 3 1/4 tsp 6 1 /2 tabs 60-64 560 mg 3 1/2 tsp 7 tabs 65-70 600 mg 3 3/4 tsp 7 1 /2 tabs 71-76 640 mg 4 tsp 8 tabs 77-82 720 mg 4 1/2 tsp 9 tabs 83-88 800 mg 5 tsp 10 tabs >89 pounds or adults 650 mg to 900 mg Acetaminophen can be repeated every four hours. Maximum daily dose not to exceed 4000 mg. These maximum recommended dosages are slightly higher than the dosages written on the product container, but these dosages are very safe and well below the toxic dosage for acetaminophen. Ibuprofen Ibuprofen is an excellent, safe drug for pain control. In addition, it has potent antiinflammatory effects which are beneficial, especially in the treatment of injuries, arthritis, or tendonitis. It's best to take ibuprofen with food. Persons with ulcer disease or allergy to aspirin should notify their physician of this before taking ibuprofen. Take the medication exactly as prescribed. Don't take additional doses unless instructed to do so by your doctor. If you develop wheezing, shortness of breath, hives, faintness, stomach pain, vomiting, or dark black stools, return for re-evaluation at once. FOLLOW-UP CARE: If you have been referred to a physician for follow-up care, call the physician s office for an appointment as you were instructed or within the next two days. If you experience worsening or a significant change in your symptoms, notify the physician immediately or return to the Emergency Department at any time for re-evaluation. Forms: Elevated Blood Pressure, Smoking Cessation Education Referrals: [facility] [Provider Group] - Follow up as needed
[2017-06-01 19:30] VITALS: BP 128/69
== END 2017-06-01 18:50 | disposition home or self-care (01) ==
LOC: ER 17:02
DX: R22.42 Localized swelling, mass and lump, left lower limb (principal); F17.210 Nicotine dependence, cigarettes, uncomplicated
CPT/HCPCS: 99283; A9270

== ENCOUNTER 2017-06-02 03:40 | Emergency (ER) | payer MEDICARE ==
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
[2017-06-02 04:25] LABS: ABSOLUTE BASOPHILS # (AUTO) 0.1 10^3/uL (0.0-0.2); ABSOLUTE EOSINOPHILS # (AUTO) 0.2 10^3/uL (0.0-0.6); ABSOLUTE LYMPHOCYTES (AUTO) 3.2 10^3/uL (0.5-4.7); ABSOLUTE MONOCYTES (AUTO) 0.9 10^3/uL (0.1-1.4); ABSOLUTE NEUT (AUTO) 4.4 10^3/uL (1.7-8.2); EOSINOPHILS % (AUTO) 2.4 % (0-6); HEMATOCRIT 42.5 % (37.9-51.0); HEMOGLOBIN 14.5 g/dL (13.5-17.0); LYMPHOCYTES % (AUTO) 36.3 % (13-45); MEAN CORPUSCULAR HEMOGLOBIN 30.2 pg (27.0-33.4); MEAN CORPUSCULAR HGB CONC 34.2 g/dL (32.0-36.0); MEAN CORPUSCULAR VOLUME 89 fl (80-97); MONOCYTES % (AUTO) 10.3 % (3-13); PLATELET COUNT 235 10^3/uL (150-450); RED CELL DISTRIBUTION WIDTH 13.4 % (11.5-14.0); TOTAL CELLS COUNTED % (AUTO) 100 %; WHITE BLOOD COUNT 8.8 10^3/uL (4.0-10.5)
[2017-06-02 04:40] LABS: ALANINE AMINOTRANSFERASE 80 U/L (21-72); ALBUMIN 4.7 g/dL (3.5-5.0); ALKALINE PHOSPHATASE 57 U/L (38-126); ANION GAP 16 (5-19); ASPARTATE AMINO TRANSFERASE 49 U/L (17-59); BILIRUBIN,DIRECT 0.3 mg/dL (0.0-0.4); BILIRUBIN,TOTAL 0.7 mg/dL (0.2-1.3); BLOOD UREA NITROGEN 15 mg/dL (7-20); CALCIUM 10.3 mg/dL (8.4-10.2); CARBON DIOXIDE 26 mmol/L (22-30); CHLORIDE 103 mmol/L (98-107); GLUCOSE 92 mg/dL (75-110); POTASSIUM 4.5 mmol/L (3.6-5.0); SODIUM 144.7 mmol/L (137-145); TOTAL PROTEIN 7.1 g/dL (6.3-8.2)
[2017-06-02 04:45] LABS: ACETAMINOPHEN < 10 ug/mL (10-30); ALCOHOL < 10 mg/dL (NONE DETECTED); SALICYLATE < 1.0 mg/dL (2.0-20.0)
[2017-06-02 06:55] LABS: APPEARANCE,URINE CLEAR; BILIRUBIN,URINE NEGATIVE (NEGATIVE); COLOR,URINE YELLOW; GLUCOSE, URINE NEGATIVE (NEGATIVE); KETONES,URINE NEGATIVE (NEGATIVE); LEUKOCYTE ESTERASE,URINE NEGATIVE (NEGATIVE); NITRITE,URINE NEGATIVE (NEGATIVE); PROTEIN,URINE NEGATIVE (NEGATIVE); URINE SPECIFIC GRAVITY 1.015; UROBILINOGEN,URINE NEGATIVE mg/dL (<2.0)
[2017-06-02 07:09] LABS: URINE AMPHETAMINES SCREEN NEGATIVE; URINE BARBITURATES SCREEN NEGATIVE; URINE BENZODIAZEPINES SCREEN NEGATIVE; URINE COCAINE SCREEN NEGATIVE; URINE MARIJUANA (THC) SCREEN NEGATIVE; URINE METHADONE SCREEN NEGATIVE; URINE PHENCYCLIDINE SCREEN NEGATIVE
[2017-06-02] MEDS ORDERED: DIPHENHYDRAMINE HCL 25 MG CAPSULE PO ONE (09:01)
--- NOTE | 2017-06-02 09:07 | ER Document Report ---
Doctor's Note Notes: 06/02/17 09:06 I have evaluated this patient this am and has no c/o at this time. Feels all of their needs are being met and physical exam is normal. Awaiting dispositon per mental health. 06/02/17 13:36 Mental Health evaluated patient and is recommending discharge with outpatient follow-up. Patient denies current SI or HI.
--- NOTE | 2017-06-02 09:38 | EKG REPORT ---
SEVERITY:- NORMAL ECG - SINUS RHYTHM : Confirmed by: Miquel Rios 02-Jun-2017 09:37:07
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
[2017-06-02 14:29] VITALS: BP 122/77
== END 2017-06-02 14:30 | disposition home or self-care (01) ==
LOC: ER 03:40
DX: R45.850 Homicidal ideations (principal); F20.9 Schizophrenia, unspecified; F31.9 Bipolar disorder, unspecified; T43.596A Underdosing of other antipsychotics and neuroleptics, initial encounter; T43.226A Underdosing of selective serotonin reuptake inhibitors, initial encounter; Z91.128 Patient's intentional underdosing of medication regimen for other reason; Z63.0 Problems in relationship with spouse or partner; F17.200 Nicotine dependence, unspecified, uncomplicated; R45.851 Suicidal ideations; Z91.040 Latex allergy status; Z88.0 Allergy status to penicillin; Z91.030 Bee allergy status
CPT/HCPCS: 93005; 99285; 36415; 80307 ×4; 85025; 80053; 81001; 93010; A9270

== ENCOUNTER → 2017-06-30 | Outpatient (CLI) | payer MEDICARE ==
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
== END ==
LOC: RAD 21:20
PROVIDERS: ATTEND Family Medicine
DX: M25.561 Pain in right knee (principal); M25.562 Pain in left knee; M54.42 Lumbago with sciatica, left side
CPT/HCPCS: 72050; 72110

== ENCOUNTER 2017-07-07 12:30 | Emergency (ER) | payer MEDICARE ==
--- NOTE | 2017-07-07 12:47 | ER Document Report ---
ED Medical Screen (RME) - General Chief Complaint: Suicidal Ideation Stated Complaint: PSYCH EVAL Time Seen by Provider: 07/07/17 12:43 Notes: RAPID MEDICAL EVALUATION DISCLOSURE I have seen this patient as part of a Rapid Medical Evaluation and, if applicable, placed any initially appropriate orders. The patient will be seen and fully evaluated, including a full history and physical exam, by a provider ( in Main ED or Fast Track) when a room becomes available. 27-year-old male here with complaints of thoughts of harming himself for the past couple days. He would cut himself with a knife, he reports but in the past he has tried overdosing on alcohol and pills but states this did not work. One month ago he had thoughts of wanting to kill his fiance but does not have any homicidal ideations recently. He has had hallucinations in the past but not recently. He last used crack cocaine 2 weeks ago and states "I am a recovering crackhead". TRAVEL OUTSIDE OF THE [place] IN LAST 30 DAYS: No - Related Data Allergies/Adverse Reactions: latex [Latex] Allergy (Unknown, Verified 07/07/17 12:31) Penicillins Allergy (Verified 07/07/17 12:31) bees Allergy (Uncoded 07/07/17 12:31) Past Medical History - Social History Family history: Reviewed & Not Pertinent Neurological Medical History: Reports: Hx Seizures - Patient reports 3 seizures , but thinks they were drug-induced. 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 Musculoskeltal Medical History: Reports Hx Arthritis - hands Psychiatric Medical History: Reports: Hx Attention Deficit Hyperactivity Disorder, Hx Bipolar Disorder, Hx Depression - manic, Hx Schizophrenia Past Surgical History: Reports: Hx Oral Surgery - Immunizations Immunizations up to date: Yes Hx Diphtheria, Pertussis, Tetanus Vaccination: Yes - 2012 Physical Exam - Vital signs Vitals: Temp Pulse Resp BP Pulse Ox 99.1 F 98 20 136/86 H 95 07/07/17 12:35 07/07/17 12:35 07/07/17 12:35 07/07/17 12:35 07/07/17 12:35 Course - Vital Signs Vital signs: Temp Pulse Resp BP Pulse Ox 99.1 F 98 20 136/86 H 95 07/07/17 12:35 07/07/17 12:35 07/07/17 12:35 07/07/17 12:35 07/07/17 12:35
[2017-07-07 13:44] LABS: ABSOLUTE BASOPHILS # (AUTO) 0.1 10^3/uL (0.0-0.2); ABSOLUTE EOSINOPHILS # (AUTO) 0.2 10^3/uL (0.0-0.6); ABSOLUTE LYMPHOCYTES (AUTO) 2.7 10^3/uL (0.5-4.7); ABSOLUTE MONOCYTES (AUTO) 0.8 10^3/uL (0.1-1.4); ABSOLUTE NEUT (AUTO) 4.7 10^3/uL (1.7-8.2); BASOPHILS % (AUTO) 0.7 % (0-2); EOSINOPHILS % (AUTO) 2.2 % (0-6); HEMATOCRIT 40.6 % (37.9-51.0); HEMOGLOBIN 14.2 g/dL (13.5-17.0); LYMPHOCYTES % (AUTO) 32.3 % (13-45); MEAN CORPUSCULAR HEMOGLOBIN 30.8 pg (27.0-33.4); MEAN CORPUSCULAR HGB CONC 34.9 g/dL (32.0-36.0); MEAN CORPUSCULAR VOLUME 88 fl (80-97); PLATELET COUNT 247 10^3/uL (150-450); RED CELL DISTRIBUTION WIDTH 12.8 % (11.5-14.0); SEGMENTED NEUTROPHILS % (AUTO) 55.8 % (42-78); TOTAL CELLS COUNTED % (AUTO) 100 %; WHITE BLOOD COUNT 8.4 10^3/uL (4.0-10.5)
[2017-07-07 13:53] LABS: ACETAMINOPHEN < 10 ug/mL (10-30); ALANINE AMINOTRANSFERASE 64 U/L (21-72); ALBUMIN 4.6 g/dL (3.5-5.0); ALCOHOL < 10 mg/dL (NONE DETECTED); ALKALINE PHOSPHATASE 54 U/L (38-126); ANION GAP 14 (5-19); ASPARTATE AMINO TRANSFERASE 38 U/L (17-59); BILIRUBIN,DIRECT 0.3 mg/dL (0.0-0.4); BILIRUBIN,TOTAL 0.5 mg/dL (0.2-1.3); BLOOD UREA NITROGEN 25 mg/dL (7-20); CALCIUM 9.8 mg/dL (8.4-10.2); CARBON DIOXIDE 24 mmol/L (22-30); CHLORIDE 105 mmol/L (98-107); GLUCOSE 106 mg/dL (75-110); POTASSIUM 4.3 mmol/L (3.6-5.0); SALICYLATE < 1.0 mg/dL (2.0-20.0); SODIUM 143.1 mmol/L (137-145); TOTAL PROTEIN 7.3 g/dL (6.3-8.2)
[2017-07-07 14:25] LABS: APPEARANCE,URINE CLEAR; BILIRUBIN,URINE NEGATIVE (NEGATIVE); COLOR,URINE YELLOW; GLUCOSE, URINE NEGATIVE (NEGATIVE); KETONES,URINE TRACE mg/dL (NEGATIVE); LEUKOCYTE ESTERASE,URINE NEGATIVE (NEGATIVE); NITRITE,URINE NEGATIVE (NEGATIVE); PROTEIN,URINE NEGATIVE (NEGATIVE); URINE SPECIFIC GRAVITY 1.026
[2017-07-07 14:36] LABS: URINE AMPHETAMINES SCREEN NEGATIVE; URINE BARBITURATES SCREEN NEGATIVE; URINE BENZODIAZEPINES SCREEN NEGATIVE; URINE COCAINE SCREEN NEGATIVE; URINE MARIJUANA (THC) SCREEN NEGATIVE; URINE METHADONE SCREEN NEGATIVE; URINE PHENCYCLIDINE SCREEN NEGATIVE
--- NOTE | 2017-07-07 14:44 | EKG REPORT ---
SEVERITY:- NORMAL ECG - SINUS RHYTHM : Confirmed by: Cong Serna MD 07-Jul-2017 14:43:58
--- NOTE | 2017-07-07 17:58 | ER Document Report ---
ED Psych Disorder / Suicide - General Chief Complaint: Suicidal Ideation Stated Complaint: PSYCH EVAL Time Seen by Provider: 07/07/17 12:43 Notes: Chief complaint: Suicidal ideation History of complain:( obtained from----patient)27-year-old male here with complaints of thoughts of harming himself for the past couple days. He would cut himself with a knife, he reports but in the past he has tried overdosing on alcohol and pills but states this did not work. One month ago he had thoughts of wanting to kill his fiance but does not have any homicidal ideations recently. He has had hallucinations in the past but not recently. He last used crack cocaine 2 weeks ago and states "I am a recovering crackhead". Claims that he did not take his Prozac and want to end his life. But did not commit. He says that he is going to cut his wrists. Onset: As above Duration: Last 2 days Severity: Mild to moderate Quality: Not applicable Context: Failure to get his Prozac Exacerbating factor and relieving factors: Unknown REVIEW OF SYSTEMS: CONSTITUTIONAL : Denies fever, chills, or sweats. Denies recent illness. EENT: Denies eye, ear, throat, or mouth pain or symptoms. Denies nasal or sinus congestion or discharge. Denies throat, tongue, or mouth swelling or difficulty swallowing. CARDIOVASCULAR: Denies chest pain. Denies palpitations or racing or irregular heart beat. Denies ankle edema. RESPIRATORY: Denies cough, cold, or chest congestion. Denies shortness of breath, difficulty breathing, or wheezing. GASTROINTESTINAL: Denies distention. Denies nausea, vomiting, or diarrhea. Denies blood in vomitus, stools, or per rectum. Denies black, tarry stools. Denies constipation. GENITOURINARY: Denies difficulty urinating, painful urination, burning, frequency, blood in urine, or discharge. FEMALE GENITOURINARY: Denies vaginal bleeding, heavy or abnormal periods, irregular periods. Denies vaginal discharge or odor. MUSCULOSKELETAL: Denies back or neck pain or stiffness. Denies joint pain or swelling. SKIN: Denies rash, lesions or sores. HEMATOLOGIC : Denies easy bruising or bleeding. LYMPHATIC: Denies swollen, enlarged glands. NEUROLOGICAL: Denies confusion or altered mental status. Denies passing out or loss of consciousness. Denies dizziness or lightheadedness. Denies headache. Denies weakness or paralysis or loss of use of either side. Denies problems with gait or speech. Denies sensory loss, numbness, or tingling. Denies seizures. PSYCHIATRIC: depression, suicidal ideation, no homicidal ideation. ALL OTHER SYSTEMS REVIEWED AND NEGATIVE. PHYSICAL EXAMINATION: GENERAL: Well-appearing, well-nourished and in no acute distress. HEAD: Atraumatic, normocephalic. EYES: Pupils equal round and reactive to light, extraocular movements intact, conjunctiva are normal. ENT: Nares patent, oropharynx clear without exudates. Moist mucous membranes. NECK: Normal range of motion, supple without lymphadenopathy LUNGS: Breath sounds clear to auscultation bilaterally and equal. No wheezes rales or rhonchi. HEART: Regular rate and rhythm without murmurs ABDOMEN: Soft, nontender, nondistended abdomen. No guarding, no rebound. No masses appreciated. Examination of genitals-deferred Musculoskeletal: Normal range of motion, no pitting or edema. No cyanosis. NEUROLOGICAL: Cranial nerves grossly intact. Normal speech, normal gait. Normal sensory, motor exams PSYCH: Normal mood, normal affect. Questionable depression, and questionable real intention of hurting himself. SKIN: Warm, Dry, normal turgor, no rashes or lesions noted. Dictation was performed using [employer] voice recognition software TRAVEL OUTSIDE OF THE [place] IN LAST 30 DAYS: No - HPI Notes: Dictated - Related Data Allergies/Adverse Reactions: latex [Latex] Allergy (Unknown, Verified 07/07/17 12:31) Penicillins Allergy (Verified 07/07/17 12:31) bees Allergy (Uncoded 07/07/17 12:31) Past Medical History - Social History Smoking Status: Current Every Day Smoker Chew tobacco use (# tins/day): No Frequency of alcohol use: None Drug Abuse: Cocaine Family History: Reviewed & Not Pertinent, Arthritis, CVA, DM, Hypertension, Malignancy. denies: CAD, COPD, Hyperlipidemia, Thyroid Disfunction Patient has suicidal ideation: No Patient has homicidal ideation: No Neurological Medical History: Reports: Hx Seizures - Patient reports 3 seizures , but thinks they were drug-induced. 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 Musculoskeltal Medical History: Reports Hx Arthritis - hands Psychiatric Medical History: Reports: Hx Attention Deficit Hyperactivity Disorder, Hx Bipolar Disorder, Hx Depression - manic, Hx Schizophrenia Past Surgical History: Reports: Hx Oral Surgery - Immunizations Immunizations up to date: Yes Hx Diphtheria, Pertussis, Tetanus Vaccination: Yes - 2012 Physical Exam - Vital signs Vitals: Temp Pulse Resp BP Pulse Ox 99.1 F 98 20 136/86 H 95 07/07/17 12:35 07/07/17 12:35 07/07/17 12:35 07/07/17 12:35 07/07/17 12:35 - Notes Notes: Dictated Course - Re-evaluation Re-evalutation: 07/07/17 18:31 Patient was evaluated by mental health, mental health discussed the case with the psychiatrist on-call, decided not to admit him. Treat him as outpatient. - Vital Signs Vital signs: Temp Pulse Resp BP Pulse Ox 99.1 F 98 20 136/86 H 95 07/07/17 12:35 07/07/17 12:35 07/07/17 12:35 07/07/17 12:35 07/07/17 12:35 - Laboratory Result Diagrams: 07/07/17 12:50 07/07/17 12:50 Laboratory results interpreted by me: 07/07/17 07/07/17 12:50 14:00 BUN 25 H Urine Ketones TRACE H Urine Blood SMALL H Urine Urobilinogen 2.0 H Salicylates < 1.0 L Acetaminophen < 10 L Discharge - Discharge Clinical Impression: Substance abuse Depression Qualifiers: Depression Type: unspecified Qualified Code(s): F32.9 - Major depressive disorder, single episode, unspecified Instructions: Depression (OM)
[2017-07-07 18:59] VITALS: BP 115/84
--- NOTE | 2017-07-08 09:29 | PSYCHOLOGICAL NOTE ---
Psych Note - Psych Note Psych Note: Reason for Consult: suicidal ideation pt arrived to the ED with complaints of suicidal thoughts with a plan of cutting himself to "bleed and ", sternal chest pain and chronic low back pain that has been ongoing for "many years". Patient disclosed that he has been feeling "suicidal" for one week. He reports his plan is to "cut myself." he confirms he has a history of cutting. Patient disclosed he doesn't know what his trigger is, he was just suicidal. Patient reports he was released from [facility] one week ago and does not know who he is supposed to follow up with for outpatient mental health services and denies receiving any medications. Patient confirmed last time he used cocaine was just previous to his 1 week at [facility]. After further discussion with clinician patient stated that he was supposed to be on medication but was unable to fill the medication because he has no money. Clinician asked when the last time he had money he stated on the first however "it is all gone after paying bills." Clinician the patient to pay for the cocaine just prior to it which she confirmed he did. Inpatient psychiatric treatment at [facility] clinician discussed with patient how inpatient psychiatric treatment would be beneficial for the patient since he is just recently was released and has not followed up with his medication or therapy. Patient responded "when I get out, I will have money because my money hits on the first.... and I have an appointment in a few weeks with Maria Mckinnon." Clinician explained inpatient psychiatric treatment is not an option for temporary housing because of financial difficulties. Patient is alert and orientated to person, place, time and circumstance. Mood is dysphoric. Nursing staff reports patient presented with flat affect during phone consultation and arrived to [facility] ED appropriately dressed and bathed. Patient endorses passive suicidal ideation and makes general suicidal comments with the hope of getting back into [facility] which she was just released from 1 week ago. Patient has a history of cutting as a maladaptive coping skill. Patient denies homicidal ideation. Delusions are absent and behaviors congruent with an intact reality based presentation i.e. organized and linear thought processes. Intellectual abilities appear to be within the average range. Attention and concentration are fair. Insight, impulse control is fair due to substance abuse. Diagnosis: 292.9 (F14.99) Unspecified Cocaine Related Disorder History of Methamphetamine Use per patient History of Alcohol Use per patient (4 years sober with exception of shot here or there, but not been drunk) R/O 301.83 (F60.3) Borderline Personality Disorder Impression\\plan: Patient is cleared from acute psychiatric services. Patient does not meet IVC criteria per [place] GS 122C. Patient discloses wanting to go back to [facility] until the first month at which point his disability will kick in and he will have money. Patient did not follow-up with his outpatient mental health provider or filled his medications. Patient originally stated that he does not have any knowledge of a discharge plan from [facility] I would never then followed up with knowing he has a outpatient therapy appointment within the next few days and was unable to fill his medications because of financial difficulties. He stated he did not have any money after the first of this month because he had pay bills and confirmed that he paid for his cocaine he used 2 weeks ago (well after the 1st). Patient's requests to go inpatient psychiatric treatment is because of financial difficulties. Dr. Blair was consulted and the care management as patient; attending physician is agreement with recommendations and disposition.
== END 2017-07-07 18:59 | disposition home or self-care (01) ==
LOC: ER 12:30
DX: R45.851 Suicidal ideations (principal); F19.10 Other psychoactive substance abuse, uncomplicated; F32.9 Major depressive disorder, single episode, unspecified; F14.99 Cocaine use, unspecified with unspecified cocaine-induced disorder; F60.3 Borderline personality disorder; F17.200 Nicotine dependence, unspecified, uncomplicated; Z91.040 Latex allergy status; Z88.0 Allergy status to penicillin; Z91.030 Bee allergy status
CPT/HCPCS: 36415; 80053; 80307; 81001; 85025; 93005; 93010; 99285

== ENCOUNTER 2017-08-21 23:23 | Emergency (ER) | payer MEDICARE ==
--- NOTE | 2017-08-22 00:40 | ER Document Report ---
ED General - General TRAVEL OUTSIDE OF THE [place] IN LAST 30 DAYS: No <ROBERTA CHAVEZ - Last Filed: 08/22/17 06:04> <CARMEN PARR - Last Filed: 08/22/17 08:51> <NOEL OCONNOR - Last Filed: 08/22/17 09:43> - General Chief Complaint: Suicidal Ideation Stated Complaint: PSYCH EVAL Time Seen by Provider: 08/22/17 00:27 Notes: Patient is a 27-year-old male who presents with complaint of being suicidal because he is homeless. He says he has no hope. He says him and his fiance are both homeless and suicidal because of it. He is supposed be on medications for depression but has not been taking them. He says that he cannot get a house because there is a waiting list for any government housing. He says he is not allowed to have a job because of being on disability. He says he does receive a disability check. He says despite receiving money for his disability check is unable to get a place to stay in. He has no other complaints at this time. He denies doing anything to try to hurt himself other than "not eating much food". Denies any recent fevers or illnesses. He denies trying overdose any medications. He denies cutting himself. (ROBERTA CHAVEZ) - Related Data Allergies/Adverse Reactions: latex [Latex] Allergy (Unknown, Verified 08/22/17 02:20) Penicillins Allergy (Verified 08/22/17 02:20) bees Allergy (Uncoded 07/07/17 12:31) Past Medical History - Social History Smoking Status: Current Every Day Smoker Frequency of alcohol use: None Drug Abuse: None Family History: Reviewed & Not Pertinent, Arthritis, CVA, DM, Hypertension, Malignancy. denies: CAD, COPD, Hyperlipidemia, Thyroid Disfunction Neurological Medical History: Reports: Hx Seizures - Patient reports 3 seizures , but thinks they were drug-induced. 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 Musculoskeletal Medical History: Reports Hx Arthritis - hands Psychiatric Medical History: Reports: Hx Attention Deficit Hyperactivity Disorder, Hx Bipolar Disorder, Hx Depression - manic, Hx Schizophrenia Past Surgical History: Reports: Hx Oral Surgery - Immunizations Immunizations up to date: Yes Hx Diphtheria, Pertussis, Tetanus Vaccination: Yes - 2013 <CHAVEZROBERTA - Last Filed: 08/22/17 06:04> Review of Systems <CHAVEZSVETAROBERTA - Last Filed: 08/22/17 06:04> <PARRCHYNACARMEN - Last Filed: 08/22/17 08:51> <NOEL OCONNOR - Last Filed: 08/22/17 09:43> - Review of Systems Notes: My Normal Review Basic REVIEW OF SYSTEMS: CONSTITUTIONAL : Denies fever, chills, or sweats. Denies recent illness. EENT: Denies eye, ear, throat, or mouth pain or symptoms. Denies nasal or sinus congestion. CARDIOVASCULAR: Denies chest pain. RESPIRATORY: Denies cough, cold, or chest congestion. Denies shortness of breath, difficulty breathing, or wheezing. GASTROINTESTINAL: Denies abdominal pain. Denies nausea, vomiting, or diarrhea. MUSCULOSKELETAL: Denies neck or back pain or joint pain or swelling. SKIN: Denies rash or skin lesions. NEUROLOGICAL: Denies altered mental status or loss of consciousness. Denies headache. Denies weakness or paralysis or loss of use of either side. Denies problems with gait or speech. Denies sensory or motor loss. PSYCHIATRIC: Suicidal thoughts ALL OTHER SYSTEMS REVIEWED AND NEGATIVE. (ROBERTA CHAVEZ) Physical Exam <CHAVEZSVETAROBERTA - Last Filed: 08/22/17 06:04> <CARMEN PARR - Last Filed: 08/22/17 08:51> <NOEL OCONNOR - Last Filed: 08/22/17 09:43> - Vital signs Vitals: Temp Pulse Resp BP Pulse Ox 98.2 F 100 18 134/80 H 97 08/21/17 23:48 08/21/17 23:48 08/21/17 23:48 08/21/17 23:48 08/21/17 23:48 - Notes Notes: General Appearance: Well nourished, alert, cooperative, no acute distress, no obvious discomfort. Vitals: reviewed, See vital signs table. Head: no swelling or tenderness to the head Eyes: PERRL, EOMI, Conjuctiva clear Mouth: No decreasd moisture Lungs: No wheezing, No rales, No rhonci, No accessory muscle use, good air exchange bilaterally. Heart: Normal rate, Regular rythm, No murmur, no rub Abdomen: Normal BS, soft, No rigidity, No abdominal tenderness, No guarding, no rebound, no abdominal masses, no organomegaly Extremities: strength 5/5 in all extremities, good pulses in all extremities, no swelling or tenderness in the extremities Skin: warm, dry, appropriate color, no rash Neuro: speech clear, oriented x 3, normal affect, responds appropriately to questions. (ROBERTA CHAVEZ) Course - Laboratory Result Diagrams: 08/22/17 00:50 08/22/17 00:50 <ROBERTA CHAVEZ - Last Filed: 08/22/17 06:04> - Laboratory Result Diagrams: 08/22/17 00:50 08/22/17 00:50 <CARMEN PARR - Last Filed: 08/22/17 08:51> - Laboratory Result Diagrams: 08/22/17 00:50 08/22/17 00:50 <NOEL OCONNOR - Last Filed: 08/22/17 09:43> - Re-evaluation Re-evalutation: 08/22/17 06:05 Patient says he is suicidal. Patient does not really have a plan. I suspect he may be using the complaint of suicidal ideations as a secondary gain or to have a place to stay tonight being to him and his fiance both showed up at the same time complaining of the same complaint. Also on exam patient does not really seem depressed and was not crying or tearful. Makes good eye contact and does not seem to be upset at all. Patient is not IVC'd as I really do not suspect that he is truly suicidal. We will have psychiatry talk to him as he requested. Patient is medically stable for psychiatric evaluation. Dictation of this chart was performed using voice recognition software; therefore, there may be some unintended grammatical errors. 08/22/17 06:06 (ROBERTA CHAVEZ) - Vital Signs Vital signs: Temp Pulse Resp BP Pulse Ox 98.3 F 91 16 125/79 99 08/22/17 09:27 08/22/17 09:27 08/22/17 09:27 08/22/17 09:27 08/22/17 09:27 - Laboratory Laboratory results interpreted by me: 08/22/17 08/22/17 00:50 03:30 Sodium 147.2 H Urine Urobilinogen 2.0 H Salicylates < 1.0 L Acetaminophen < 10 L - EKG Interpretation by Me Additional EKG results interpreted by me: 08/22/17 03:01 EKG is reviewed and interpreted by me. EKG shows sinus rhythm with a rate of [address] segment elevation or depression. No ischemic T-wave inversions. PA interval, QRS duration, QTc intervals are within normal range. Old EKG for comparison is from July 07, 2017. (ROBERTA CHAVEZ) Discharge <ROBERTA CHAVEZ - Last Filed: 08/22/17 06:04> <CARMEN PARR - Last Filed: 08/22/17 08:51> <NOEL OCONNOR - Last Filed: 08/22/17 09:43> - Discharge Clinical Impression: Depression Qualifiers: Depression Type: unspecified Qualified Code(s): F32.9 - Major depressive disorder, single episode, unspecified Condition: Stable Disposition: HOME, SELF-CARE Additional Instructions: DEPRESSION: Your evaluation reveals that you have mental depression. While symptoms may be vague, they often include disturbance of sleep, fatigue, loss of appetite , and general loss of interest in life. While depression may be a side effect of drugs, or a reaction to a major change in your life, many cases have no known cause. If depression is acute, and related to a major loss in your life, you can expect it to clear completely with time. If you have been depressed a long time , are prone to repeated bouts of depression or low mood, or have been thinking of suicide, get help. Depression can be treated with anti-depressant medication and counselling. Long-term depression will often take a few weeks to clear, even with appropriate medication. Follow-up care is important. SUICIDAL IDEATION: Suicidal ideation is a common medical term for thoughts about suicide, which may be as detailed as a formulated plan, without the suicidal act itself. Although most people who undergo suicidal ideation do not commit suicide, some go on to make suicide attempts. The range of suicidal ideation varies greatly from fleeting to detailed planning, role playing, and unsuccessful attempts. While thoughts about suicide are common, most people do not carry out serious actions to commit suicide. Based upon your evaluation and discussion with you, we do not believe you are currently at risk to act upon your thoughts of suicide. You have agreed to return to the Emergency Department, at any time , if you feel inclined to act upon your suicidal thoughts. FOLLOW-UP CARE: Please follow up with your outpatient mental health provider for your continued mental health and substance abuse treatment. If you are still interested in the program that can assist you with going back home to [place], please contact the homeless halfway at [phone], and ask to speak with Floridalma Avila. If you experience worsening or a significant change in your symptoms , notify the physician immediately or return to the Emergency Department at any time for re-evaluation. Referrals: [facility] [Outside] - Follow up as needed
[2017-08-22 01:04] LABS: ABSOLUTE BASOPHILS # (AUTO) 0.1 10^3/uL (0.0-0.2); ABSOLUTE EOSINOPHILS # (AUTO) 0.2 10^3/uL (0.0-0.6); ABSOLUTE LYMPHOCYTES (AUTO) 2.7 10^3/uL (0.5-4.7); ABSOLUTE MONOCYTES (AUTO) 0.5 10^3/uL (0.1-1.4); ABSOLUTE NEUT (AUTO) 5.1 10^3/uL (1.7-8.2); BASOPHILS % (AUTO) 1.2 % (0-2); EOSINOPHILS % (AUTO) 2.5 % (0-6); HEMATOCRIT 40.1 % (37.9-51.0); HEMOGLOBIN 13.6 g/dL (13.5-17.0); LYMPHOCYTES % (AUTO) 31.4 % (13-45); MEAN CORPUSCULAR HGB CONC 33.9 g/dL (32.0-36.0); MEAN CORPUSCULAR VOLUME 88 fl (80-97); MONOCYTES % (AUTO) 5.6 % (3-13); PLATELET COUNT 250 10^3/uL (150-450); RED BLOOD COUNT 4.53 10^6/uL (4.35-5.55); RED CELL DISTRIBUTION WIDTH 13.1 % (11.5-14.0); SEGMENTED NEUTROPHILS % (AUTO) 59.3 % (42-78); TOTAL CELLS COUNTED % (AUTO) 100 %; WHITE BLOOD COUNT 8.6 10^3/uL (4.0-10.5)
[2017-08-22 01:19] LABS: ALANINE AMINOTRANSFERASE 47 U/L (21-72); ALBUMIN 4.6 g/dL (3.5-5.0); ALKALINE PHOSPHATASE 68 U/L (38-126); ANION GAP 14 (5-19); ASPARTATE AMINO TRANSFERASE 33 U/L (17-59); BILIRUBIN,DIRECT 0.3 mg/dL (0.0-0.4); BILIRUBIN,TOTAL 0.3 mg/dL (0.2-1.3); BLOOD UREA NITROGEN 11 mg/dL (7-20); CALCIUM 9.5 mg/dL (8.4-10.2); CARBON DIOXIDE 28 mmol/L (22-30); CHLORIDE 105 mmol/L (98-107); GLUCOSE 86 mg/dL (75-110); POTASSIUM 4.1 mmol/L (3.6-5.0); SODIUM 147.2 mmol/L (137-145); TOTAL PROTEIN 7.1 g/dL (6.3-8.2)
[2017-08-22 01:21] LABS: ACETAMINOPHEN < 10 ug/mL (10-30); ALCOHOL < 10 mg/dL (NONE DETECTED); SALICYLATE < 1.0 mg/dL (2.0-20.0)
[2017-08-22 03:49] LABS: APPEARANCE,URINE CLEAR; BILIRUBIN,URINE NEGATIVE (NEGATIVE); COLOR,URINE YELLOW; GLUCOSE, URINE NEGATIVE (NEGATIVE); KETONES,URINE NEGATIVE (NEGATIVE); LEUKOCYTE ESTERASE,URINE NEGATIVE (NEGATIVE); NITRITE,URINE NEGATIVE (NEGATIVE); PROTEIN,URINE NEGATIVE (NEGATIVE); URINE SPECIFIC GRAVITY 1.017
[2017-08-22 04:02] LABS: URINE AMPHETAMINES SCREEN NEGATIVE; URINE BARBITURATES SCREEN NEGATIVE; URINE BENZODIAZEPINES SCREEN NEGATIVE; URINE COCAINE SCREEN NEGATIVE; URINE MARIJUANA (THC) SCREEN UNCONFIRMED POSITIVE; URINE METHADONE SCREEN NEGATIVE; URINE PHENCYCLIDINE SCREEN NEGATIVE
[2017-08-22 09:28] VITALS: BP 125/79
--- NOTE | 2017-08-22 09:42 | ER Document Report ---
Doctor's Note Notes: 08/22/17 09:40 Rounds: Chart reviewed and patient interviewed. Patient is here with his ole blair who is saying that they are both homeless and have no place to stay in their suicidal. Patient has no other medical problems. Vital signs are all essentially normal. Lab studies were normal except for being positive for marijuana on his drug screen. Patient appears to be medically stable for transfer or discharge. Angela Saha MD
--- NOTE | 2017-08-22 20:39 | EKG REPORT ---
SEVERITY:- NORMAL ECG - SINUS RHYTHM : Confirmed by: Marina Barahona MD 22-Aug-2017 20:38:54
== END 2017-08-22 09:53 | disposition home or self-care (01) ==
LOC: ER 23:23
DX: F32.9 Major depressive disorder, single episode, unspecified (principal); R45.851 Suicidal ideations; F17.200 Nicotine dependence, unspecified, uncomplicated; Z59.0 Homelessness; Z91.040 Latex allergy status; Z88.0 Allergy status to penicillin; Z91.030 Bee allergy status
CPT/HCPCS: 36415; 80053; 80307; 81001; 85025; 93005; 93010; 99285

== ENCOUNTER 2017-09-05 13:04 | Emergency (ER) | payer MEDICARE ==
--- NOTE | 2017-09-05 13:30 | ER Document Report ---
ED Medical Screen (RME) - General Chief Complaint: Rectal Bleeding Stated Complaint: RECTAL BLEEDING Time Seen by Provider: 09/05/17 13:28 Notes: 27 years old male presents today with rectal bleed, with a history of rectal bleed and pancreatitis. He also claimed that he had abdominal pain particularly over the midabdomen. Denies any nausea vomiting. Denies any fever chills. Denies drinking alcoholic drinks. TRAVEL OUTSIDE OF THE [place] IN LAST 30 DAYS: No - Related Data Allergies/Adverse Reactions: latex [Latex] Allergy (Unknown, Verified 08/22/17 02:20) Penicillins Allergy (Verified 08/22/17 02:20) bees Allergy (Uncoded 07/07/17 12:31) Past Medical History - Social History Family history: Reviewed & Not Pertinent Neurological Medical History: Reports: Hx Seizures - Patient reports 3 seizures , but thinks they were drug-induced. 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 Musculoskeltal Medical History: Reports Hx Arthritis - hands Psychiatric Medical History: Reports: Hx Attention Deficit Hyperactivity Disorder, Hx Bipolar Disorder, Hx Depression - manic, Hx Schizophrenia Past Surgical History: Reports: Hx Oral Surgery - Immunizations Immunizations up to date: Yes Hx Diphtheria, Pertussis, Tetanus Vaccination: Yes - 2012 Physical Exam - Vital signs Vitals: Temp Pulse Resp BP Pulse Ox 98.1 F 112 H 22 H 127/75 H 98 09/05/17 13:12 09/05/17 13:12 09/05/17 13:12 09/05/17 13:12 09/05/17 13:12 Course - Vital Signs Vital signs: Temp Pulse Resp BP Pulse Ox 98.1 F 112 H 22 H 127/75 H 98 09/05/17 13:12 09/05/17 13:12 09/05/17 13:12 09/05/17 13:12 09/05/17 13:12
[2017-09-05 14:37] LABS: ABSOLUTE BASOPHILS # (AUTO) 0.1 10^3/uL (0.0-0.2); ABSOLUTE EOSINOPHILS # (AUTO) 0.1 10^3/uL (0.0-0.6); ABSOLUTE MONOCYTES (AUTO) 0.7 10^3/uL (0.1-1.4); ABSOLUTE NEUT (AUTO) 4.8 10^3/uL (1.7-8.2); BASOPHILS % (AUTO) 0.8 % (0-2); EOSINOPHILS % (AUTO) 1.9 % (0-6); HEMATOCRIT 42.9 % (37.9-51.0); HEMOGLOBIN 14.6 g/dL (13.5-17.0); LYMPHOCYTES % (AUTO) 26.1 % (13-45); MEAN CORPUSCULAR VOLUME 88 fl (80-97); MONOCYTES % (AUTO) 8.7 % (3-13); PLATELET COUNT 258 10^3/uL (150-450); RED BLOOD COUNT 4.86 10^6/uL (4.35-5.55); RED CELL DISTRIBUTION WIDTH 13.2 % (11.5-14.0); SEGMENTED NEUTROPHILS % (AUTO) 62.5 % (42-78); TOTAL CELLS COUNTED % (AUTO) 100 %; WHITE BLOOD COUNT 7.6 10^3/uL (4.0-10.5)
[2017-09-05 15:02] LABS: ALANINE AMINOTRANSFERASE 60 U/L (21-72); ALBUMIN 4.8 g/dL (3.5-5.0); ALKALINE PHOSPHATASE 56 U/L (38-126); ANION GAP 13 (5-19); ASPARTATE AMINO TRANSFERASE 46 U/L (17-59); BILIRUBIN,DIRECT 0.2 mg/dL (0.0-0.4); BLOOD UREA NITROGEN 13 mg/dL (7-20); CALCIUM 10.6 mg/dL (8.4-10.2); CARBON DIOXIDE 33 mmol/L (22-30); CHLORIDE 101 mmol/L (98-107); GLUCOSE 100 mg/dL (75-110); POTASSIUM 4.4 mmol/L (3.6-5.0); SODIUM 146.7 mmol/L (137-145); TOTAL PROTEIN 7.8 g/dL (6.3-8.2)
--- NOTE | 2017-09-05 15:05 | ER Document Report ---
ED GI Bleed / Rectal Pain - General Chief Complaint: Rectal Bleeding Stated Complaint: RECTAL BLEEDING Time Seen by Provider: 09/05/17 13:28 Mode of Arrival: Ambulatory Information source: Patient Notes: 27-year-old male presents to ED for rectal bleeding. He states he has a history of rectal bleeding and pancreatitis in the past about 2 years ago. He states he has not had any to the last couple days. He does have abdominal pain to the middle right and left. He states he drinks about every month or 2. He smokes one half packs of cigarettes a day and is homeless. Patient is alert and oriented, respirations regular and unlabored, speaks in full sentences, and walks with a even steady gait. TRAVEL OUTSIDE OF THE [place] IN LAST 30 DAYS: No - HPI Patient complains to provider of: Bright red bld from rect. Onset: This morning Timing/Duration: Intermittent Quality of pain: Sharp Severity of symptoms: Mild Pain Level: 1 Emesis description: Bright red blood Rectal bleeding: Bleeding w/o stool Rectal foreign body: No Rectal pain with intercourse: No Associated symptoms: Abdominal pain Exacerbated by: Movement Relieved by: Denies Similar symptoms previously: Yes Recently seen / treated by doctor: No - Related Data Allergies/Adverse Reactions: latex [Latex] Allergy (Unknown, Verified 08/22/17 02:20) Penicillins Allergy (Verified 08/22/17 02:20) bees Allergy (Uncoded 07/07/17 12:31) Past Medical History - General Information source: Patient - Social History Smoking Status: Current Every Day Smoker Cigarette use (# per day): Yes - Pack and 1/2-2 packs a day Chew tobacco use (# tins/day): No Smoking Education Provided: Yes - 4 minutes Frequency of alcohol use: None Drug Abuse: None Lives with: Homeless Family History: Reviewed & Not Pertinent, Arthritis, CVA, DM, Hypertension, Malignancy. denies: CAD, COPD, Hyperlipidemia, Thyroid Disfunction Patient has suicidal ideation: No Patient has homicidal ideation: No - Past Medical History Cardiac Medical History: Reports: None Pulmonary Medical History: Reports: None EENT Medical History: Reports: None Neurological Medical History: Reports: Hx Seizures - Patient reports 3 seizures , but thinks they were drug-induced. Endocrine Medical History: Reports: None Renal/ Medical History: Reports: None Malignancy Medical History: Reports None GI Medical History: Reports: Hx Pancreatitis - alcohol related Musculoskeletal Medical History: Reports Hx Arthritis - hands Skin Medical History: Reports None Psychiatric Medical History: Reports: Hx Attention Deficit Hyperactivity Disorder, Hx Bipolar Disorder, Hx Depression - manic, Hx Schizophrenia Traumatic Medical History: Reports: None Infectious Medical History: Reports: None Past Surgical History: Reports: Hx Oral Surgery - Immunizations Immunizations up to date: Yes Hx Diphtheria, Pertussis, Tetanus Vaccination: Yes - 2012 Review of Systems - Review of Systems Constitutional: No symptoms reported EENT: No symptoms reported Cardiovascular: No symptoms reported Respiratory: No symptoms reported Gastrointestinal: Abdominal pain, Rectal bleeding Genitourinary: No symptoms reported Male Genitourinary: No symptoms reported Musculoskeletal: No symptoms reported Skin: No symptoms reported Hematologic/Lymphatic: No symptoms reported Neurological/Psychological: No symptoms reported -: Yes All other systems reviewed and negative Physical Exam - Vital signs Vitals: Temp Pulse Resp BP Pulse Ox 98.1 F 112 H 22 H 127/75 H 98 09/05/17 13:12 09/05/17 13:12 09/05/17 13:12 09/05/17 13:12 09/05/17 13:12 Interpretation: Normal - General General appearance: Appears well, Alert - HEENT Head: Normocephalic, Atraumatic Eyes: Normal Pupils: PERRL - Respiratory Respiratory status: No respiratory distress Chest status: Nontender Breath sounds: Normal Chest palpation: Normal - Cardiovascular Rhythm: Regular Heart sounds: Normal auscultation Murmur: No - Abdominal Inspection: Normal Distension: No distension Bowel sounds: Normal Tenderness: Tender - Generalized Organomegaly: No organomegaly. No: Hepatomegaly, Splenomegaly, Mass - Back Back: Normal, Nontender - Extremities General upper extremity: Normal inspection, Nontender, Normal color, Normal ROM , Normal temperature General lower extremity: Normal inspection, Nontender, Normal color, Normal ROM , Normal temperature, Normal weight bearing. No: Justine's sign - Neurological Neuro grossly intact: Yes Cognition: Normal Orientation: AAOx4 [place] Coma Scale Eye Opening: Spontaneous [place] Coma Scale Verbal: Oriented [place] Coma Scale Motor: Obeys Commands [place] Coma Scale Total: 15 Speech: Normal Motor strength normal: LUE, RUE, LLE, RLE Sensory: Normal - Psychological Associated symptoms: Normal affect, Normal mood - Skin Skin Temperature: Warm Skin Moisture: Dry Skin Color: Normal Course - Re-evaluation Re-evalutation: 09/06/17 02:36 Patient was seen for rectal bleeding. His Hemoccult was negative for any blood. His labs were stable his vital signs were stable. Patient was discharged home to follow-up with primary doctor and return to the ED for any further bleeding. Patient denied any rectal sex to cause the bleeding. He did not have any hemorrhoids. He does have a history of pancreatitis from alcohol. He was given instructions for no alcohol and to slow down or stop his smoking. He states he smokes 1-1/2-2 packs a day. - Vital Signs Vital signs: Temp Pulse Resp BP Pulse Ox 98.1 F 83 18 115/72 98 09/05/17 13:12 09/05/17 15:45 09/05/17 15:45 09/05/17 15:45 09/05/17 15:45 - Laboratory Result Diagrams: 09/05/17 14:15 09/05/17 14:15 Laboratory results interpreted by me: 09/05/17 09/05/17 14:15 15:00 Sodium 146.7 H Carbon Dioxide 33 H Calcium 10.6 H Urine Urobilinogen 2.0 H Discharge - Discharge Clinical Impression: Abdominal pain Qualifiers: Abdominal location: generalized Qualified Code(s): R10.84 - Generalized abdominal pain Condition: Stable Disposition: HOME, SELF-CARE Additional Instructions: ABDOMINAL PAIN: There are many causes of abdominal pain. Pain can mean a serious problem requiring surgery (such as appendicitis). It can also be an innocent problem that goes away on its own (such as a viral infection). Often, time must pass to determine the cause of pain. The physician does not feel that hospitalization is necessary, at present. Things may change within the next 24 hours. Call the doctor or come back for re- examination if any problems occur, such as: (1) Pain that becomes more severe, steady, or becomes concentrated in one specific area. Also, pain that is more severe with movement or coughing. (2) Vomiting that persists or becomes more frequent. (3) Blood in the vomitus, urine, or bowel movements. Blood in the stool may have a tarry or black appearance. (4) Shaking chills or fever greater than 100 degrees F. (5) The abdomen becomes more distended or swollen. (6) Bowel movements cease. (7) Failure to improve as expected. NORMAL EXAM AND WORKUP: At this time, your examination and workup show no significant abnormality. No significant abnormal physical findings are noted. All laboratory, EKG, and imaging (x-ray, CT scans, ultrasound) studies that were ordered show no significant abnormality. Although your examination and all studies that were ordered showed no significant abnormal finding, there are no examinations and no studies that are 100% accurate. There is always the possibility that some abnormality could exist and not be detected with physical examination or within the limits and capabilities of laboratory and other studies. You should return or follow up as you were instructed on your visit today for further evaluation if your symptoms do not resolve. FOLLOW-UP CARE: If you have been referred to a physician for follow-up care, call the physician s office for an appointment as you were instructed or within the next two days. If you experience worsening or a significant change in your symptoms, notify the physician immediately or return to the Emergency Department at any time for re-evaluation. Forms: Smoking Cessation Education Referrals: [facility] [Provider Group] - Follow up as needed [facility] [Provider Group] - Follow up as needed
[2017-09-05 15:22] LABS: APPEARANCE,URINE CLEAR; BILIRUBIN,URINE NEGATIVE (NEGATIVE); COLOR,URINE YELLOW; GLUCOSE, URINE NEGATIVE (NEGATIVE); KETONES,URINE NEGATIVE (NEGATIVE); LEUKOCYTE ESTERASE,URINE NEGATIVE (NEGATIVE); NITRITE,URINE NEGATIVE (NEGATIVE); PROTEIN,URINE NEGATIVE (NEGATIVE); URINE SPECIFIC GRAVITY 1.021
[2017-09-05 15:48] VITALS: BP 115/72
== END 2017-09-05 16:15 | disposition home or self-care (01) ==
LOC: ER 13:04
DX: K62.5 Hemorrhage of anus and rectum (principal); R10.84 Generalized abdominal pain; F17.210 Nicotine dependence, cigarettes, uncomplicated; Z91.040 Latex allergy status; Z88.0 Allergy status to penicillin; Z59.0 Homelessness
CPT/HCPCS: 36415; 80053; 81001; 82272; 83690; 85025; 99284; 99406

== ENCOUNTER 2017-10-02 21:27 | Emergency (ER) | payer MEDICARE ==
--- NOTE | 2017-10-02 22:36 | ER Document Report ---
ED Skin Rash/Insect Bite/Abscs - General Chief Complaint: Suicidal Ideation Stated Complaint: POSSIBLE ALLERGIC REACTION Time Seen by Provider: 10/02/17 22:35 Mode of Arrival: Ambulatory Information source: Patient TRAVEL OUTSIDE OF THE [place] IN LAST 30 DAYS: No - HPI Patient complains to provider of: Skin rash/lesion Onset: Just prior to arrival Onset/Duration: Sudden, Constant Quality of pain: No pain Severity: None Pain Level: Denies Skin Character: Lesion, Papules, Patchy Skin Temperature: Warm Quality of rash: Itchy Identify cause: No Exacerbated by: Denies Relieved by: Denies Similar symptoms previously: No Recently seen / treated by doctor: No - Related Data Allergies/Adverse Reactions: latex [Latex] Allergy (Unknown, Verified 10/02/17 21:33) Penicillins Allergy (Verified 10/02/17 21:33) bees Allergy (Uncoded 10/02/17 21:33) Past Medical History - Social History Smoking Status: Current Every Day Smoker Chew tobacco use (# tins/day): No Frequency of alcohol use: None Drug Abuse: Cocaine, Marijuana Family History: Reviewed & Not Pertinent, Arthritis, CVA, DM, Hypertension, Malignancy. denies: CAD, COPD, Hyperlipidemia, Thyroid Disfunction Patient has suicidal ideation: Yes Patient has homicidal ideation: Yes Neurological Medical History: Reports: Hx Seizures - Patient reports 3 seizures , but thinks they were drug-induced. 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 Musculoskeletal Medical History: Reports Hx Arthritis - hands Psychiatric Medical History: Reports: Hx Attention Deficit Hyperactivity Disorder, Hx Bipolar Disorder, Hx Depression - manic, Hx Schizophrenia Past Surgical History: Reports: Hx Oral Surgery - Immunizations Immunizations up to date: Yes Hx Diphtheria, Pertussis, Tetanus Vaccination: Yes - 2012 Review of Systems - Review of Systems Constitutional: denies: Chills, Fever EENT: No symptoms reported Cardiovascular: No symptoms reported Respiratory: No symptoms reported Gastrointestinal: No symptoms reported Genitourinary: No symptoms reported Musculoskeletal: No symptoms reported Skin: Lesions, Rash Hematologic/Lymphatic: No symptoms reported Neurological/Psychological: Suicidal ideation. denies: Homicidal ideation -: Yes All other systems reviewed and negative Physical Exam - Vital signs Vitals: Temp Pulse Resp BP Pulse Ox 98.7 F 103 H 20 127/83 H 97 10/02/17 21:41 10/02/17 21:41 10/02/17 21:41 10/02/17 21:41 10/02/17 21:41 - General General appearance: Appears well, Alert In distress: None - HEENT Head: Normocephalic, Atraumatic Eyes: Normal Pupils: PERRL - Respiratory Respiratory status: No respiratory distress Chest status: Nontender Breath sounds: Normal Chest palpation: Normal - Cardiovascular Rhythm: Regular Heart sounds: Normal auscultation Murmur: No - Abdominal Inspection: Normal Distension: No distension Bowel sounds: Normal Tenderness: Nontender Organomegaly: No organomegaly - Back Back: Normal, Nontender - Extremities General upper extremity: Normal inspection, Nontender, Normal color, Normal ROM , Normal temperature General lower extremity: Normal inspection, Nontender, Normal color, Normal ROM , Normal temperature, Normal weight bearing. No: Justine's sign - Neurological Neuro grossly intact: Yes Cognition: Normal Orientation: AAOx4 [place] Coma Scale Eye Opening: Spontaneous [place] Coma Scale Verbal: Oriented [place] Coma Scale Motor: Obeys Commands Jovan Coma Scale Total: 15 Speech: Normal Motor strength normal: LUE, RUE, LLE, RLE Sensory: Normal - Psychological Associated symptoms: Normal affect, Normal mood - Skin Skin Temperature: Warm Skin Moisture: Dry Skin Color: Normal Skin Turgor: Elastic Skin irregularity: Rash Location of irregularity: Extremities Character of irregularity: Papular, Patchy, Erythematous Irregularity with: Warmth Course - Re-evaluation Re-evalutation: 10/03/17 02:48 Patient is medically cleared for psychiatric evaluation. - Vital Signs Vital signs: Temp Pulse Resp BP Pulse Ox 97.4 F 64 16 109/68 100 10/03/17 01:57 10/03/17 01:57 10/03/17 01:57 10/03/17 01:57 10/03/17 01:57 - Laboratory Result Diagrams: 10/02/17 23:05 10/02/17 23:05 Laboratory results interpreted by me: 10/02/17 10/03/17 23:05 01:52 Total Bilirubin 1.4 H Urine Blood SMALL H Urine Urobilinogen 4.0 H Salicylates < 1.0 L Acetaminophen < 10 L - Transfer of Care Notes: 10/03/17 02:48 Suicidal ideation. Allergic reaction.. Discharge - Discharge Clinical Impression: Suicidal ideation, Cocaine abuse, Amphetamine abuse, Marijuana abuse Allergic reaction Qualifiers: Encounter type: initial encounter Qualified Code(s): T78.40XA - Allergy, unspecified, initial encounter Condition: Stable
[2017-10-02] MEDS ORDERED: PREDNISONE 20 MG TABLET PO ONE (22:55)
[2017-10-02] MEDS ORDERED: DIPHENHYDRAMINE HCL 25 MG CAPSULE PO ONE (22:55)
[2017-10-02 23:17] LABS: ABSOLUTE BASOPHILS # (AUTO) 0.1 10^3/uL (0.0-0.2); ABSOLUTE EOSINOPHILS # (AUTO) 0.1 10^3/uL (0.0-0.6); ABSOLUTE LYMPHOCYTES (AUTO) 1.7 10^3/uL (0.5-4.7); ABSOLUTE MONOCYTES (AUTO) 0.6 10^3/uL (0.1-1.4); BASOPHILS % (AUTO) 1.1 % (0-2); EOSINOPHILS % (AUTO) 1.7 % (0-6); HEMATOCRIT 39.3 % (37.9-51.0); HEMOGLOBIN 13.5 g/dL (13.5-17.0); LYMPHOCYTES % (AUTO) 26.4 % (13-45); MEAN CORPUSCULAR HEMOGLOBIN 30.1 pg (27.0-33.4); MEAN CORPUSCULAR HGB CONC 34.3 g/dL (32.0-36.0); MEAN CORPUSCULAR VOLUME 88 fl (80-97); MONOCYTES % (AUTO) 9.8 % (3-13); PLATELET COUNT 204 10^3/uL (150-450); RED BLOOD COUNT 4.48 10^6/uL (4.35-5.55); RED CELL DISTRIBUTION WIDTH 13.3 % (11.5-14.0); TOTAL CELLS COUNTED % (AUTO) 100 %; WHITE BLOOD COUNT 6.5 10^3/uL (4.0-10.5)
[2017-10-02 23:31] LABS: ALANINE AMINOTRANSFERASE 61 U/L (21-72); ALBUMIN 4.1 g/dL (3.5-5.0); ALKALINE PHOSPHATASE 54 U/L (38-126); ANION GAP 11 (5-19); ASPARTATE AMINO TRANSFERASE 47 U/L (17-59); BILIRUBIN,DIRECT 0.2 mg/dL (0.0-0.4); BILIRUBIN,TOTAL 1.4 mg/dL (0.2-1.3); BLOOD UREA NITROGEN 11 mg/dL (7-20); CALCIUM 9.1 mg/dL (8.4-10.2); CARBON DIOXIDE 28 mmol/L (22-30); CHLORIDE 105 mmol/L (98-107); GLUCOSE 87 mg/dL (75-110); POTASSIUM 3.7 mmol/L (3.6-5.0); SODIUM 144.4 mmol/L (137-145); TOTAL PROTEIN 6.7 g/dL (6.3-8.2)
[2017-10-02 23:33] LABS: ACETAMINOPHEN < 10 ug/mL (10-30); SALICYLATE < 1.0 mg/dL (2.0-20.0)
[2017-10-03 02:14] LABS: APPEARANCE,URINE SLIGHTLY-CLOUDY; BILIRUBIN,URINE NEGATIVE (NEGATIVE); COLOR,URINE YELLOW; GLUCOSE, URINE NEGATIVE (NEGATIVE); KETONES,URINE NEGATIVE (NEGATIVE); LEUKOCYTE ESTERASE,URINE NEGATIVE (NEGATIVE); NITRITE,URINE NEGATIVE (NEGATIVE); PROTEIN,URINE NEGATIVE (NEGATIVE); URINE SPECIFIC GRAVITY 1.014
[2017-10-03 02:22] LABS: URINE AMPHETAMINES SCREEN UNCONFIRMED POSITIVE; URINE BARBITURATES SCREEN NEGATIVE; URINE BENZODIAZEPINES SCREEN NEGATIVE; URINE COCAINE SCREEN UNCONFIRMED POSITIVE; URINE MARIJUANA (THC) SCREEN UNCONFIRMED POSITIVE; URINE METHADONE SCREEN NEGATIVE; URINE PHENCYCLIDINE SCREEN NEGATIVE
[2017-10-03 06:16] VITALS: BP 112/70
--- NOTE | 2017-10-03 10:00 | ER Document Report ---
Doctor's Note Notes: 10/03/17 09:59 Patient resting comfortably, reports feeling much better this morning, he is concerned about the poison poornima on his left foot that he soaked in bleach and whether it will spread anymore or not, I examined the foot there is mild erythema with some scabbed lesions on the dorsal surface of the foot with some erythema extending to the medial malleolus, however there is no drainage, no increased warmth, there is only mild swelling, no signs of an infection, patient denies any active suicidal ideation, states that he said yes to suicidal ideation at intake because he was asked whether he had any suicidal thoughts within the last 30 days, he continues to deny being suicidal at this time and therefore is stable for discharge, patient is otherwise medically cleared for discharge, advised to follow-up with outpatient services, return if symptoms worsen, patient acknowledges understanding and agreement with this plan 10/03/17 10:01 Discharge - Discharge Clinical Impression: Suicidal ideation, Cocaine abuse, Amphetamine abuse, Marijuana abuse Allergic reaction Qualifiers: Encounter type: initial encounter Qualified Code(s): T78.40XA - Allergy, unspecified, initial encounter Condition: Stable Disposition: HOME, SELF-CARE Additional Instructions: You have been evaluated by medical and behavioral health teams and deemed appropriate for discharge. You have denied current suicidal ideation and have requested information on substance abuse; this information has been provided. You have also been provided the homeless packet that contains housing and food bank soup kitchen information. AT ANY TIME, IF YOUR SYMPTOMS CHANGE SIGNIFICANTLY OR WORSEN OR YOU DEVELOP NEW SYMPTOMS, RETURN TO THE EMERGENCY DEPARTMENT IMMEDIATELY FOR RE-EVALUATION. Referrals: [facility] [Outside] - Follow up in 3-5 days [facility] [Outside] - Follow up as needed
== END 2017-10-03 09:48 | disposition home or self-care (01) ==
LOC: ER 21:27
DX: R45.851 Suicidal ideations (principal); F14.10 Cocaine abuse, uncomplicated; F11.10 Opioid abuse, uncomplicated; F12.10 Cannabis abuse, uncomplicated; T78.40XA Allergy, unspecified, initial encounter; X58.XXXA Exposure to other specified factors, initial encounter; Z88.0 Allergy status to penicillin; Z91.040 Latex allergy status; Z91.030 Bee allergy status; F17.200 Nicotine dependence, unspecified, uncomplicated
CPT/HCPCS: 99285; 36415; 80307 ×3; 84443; 85025; 80053; 81001; A9270 ×2; J7512

== ENCOUNTER 2017-10-04 05:30 | Emergency (ER) | payer MEDICARE ==
--- NOTE | 2017-10-04 07:12 | ER Document Report ---
ED General <NEFTALY CHAPMAN - Last Filed: 10/04/17 07:49> - General Mode of Arrival: Ambulatory Information source: Patient, [facility] Records TRAVEL OUTSIDE OF THE [place] IN LAST 30 DAYS: No <BALTARAUL - Last Filed: 10/04/17 09:09> - General Chief Complaint: Rash Stated Complaint: RASH Time Seen by Provider: 10/04/17 07:04 Notes: The patient really cannot describe or explain what may have happened to his foot , but he does agree that the may have been walking in shoes and socks that were wet prior to the onset of the rash to his foot. When he was seen in the emergency room 2 days ago and reevaluated yesterday morning prior to discharge, the notes say that he reported the soaked the foot in bleach out of concern for poison poornima. Exam of the foot today and toenails does not suggest that this foot was soaked in bleach, or any other cleansing solution. (NEFTALY CHAPMAN) Patient is a 27 year old male with a history of SI, cocaine abuse, marijuana abuse presents to the emergency department complaining of a rash to the left foot. Patient was seen and discharged in the emergency department and complaining of similar symptoms as well as suicidal ideation. According to providers note from yesterday, patient was concerned that he had come in contact with poison poornima and soaked his left foot in bleach. Patient states that he has been walking around in damp shoes and reports the rash being painful. At bedside, patient is sleeping and has trouble staying awake. Of significance, patient was tested positive for cocaine, marijuana and amphetamines yesterday. (RAUL GIFFORD) - Related Data Allergies/Adverse Reactions: latex [Latex] Allergy (Unknown, Verified 10/04/17 06:01) Penicillins Allergy (Verified 10/04/17 06:01) bees Allergy (Uncoded 10/04/17 06:01) Past Medical History - General Information source: Patient, [facility] Records - Social History Smoking Status: Current Every Day Smoker Cigarette use (# per day): Yes Drug Abuse: Cocaine, Marijuana Family History: Reviewed & Not Pertinent, Arthritis, CVA, DM, Hypertension, Malignancy Patient has suicidal ideation: No Patient has homicidal ideation: No Neurological Medical History: Reports: Hx Seizures - Patient reports 3 seizures , but thinks they were drug-induced. GI Medical History: Reports: Hx Pancreatitis - alcohol related Musculoskeletal Medical History: Reports Hx Arthritis - hands Psychiatric Medical History: Reports: Hx Attention Deficit Hyperactivity Disorder, Hx Bipolar Disorder, Hx Depression - manic, Hx Schizophrenia Past Surgical History: Reports: Hx Oral Surgery - Immunizations Immunizations up to date: Yes Hx Diphtheria, Pertussis, Tetanus Vaccination: Yes - 2012 <BALTARAUL COOPER - Last Filed: 10/04/17 09:09> Review of Systems - Review of Systems Constitutional: No symptoms reported EENT: No symptoms reported Cardiovascular: No symptoms reported Respiratory: No symptoms reported Gastrointestinal: No symptoms reported Genitourinary: No symptoms reported Male Genitourinary: No symptoms reported Musculoskeletal: See HPI Skin: See HPI, Rash Hematologic/Lymphatic: No symptoms reported Neurological/Psychological: No symptoms reported -: Yes All other systems reviewed and negative <BALTAMATTHEWVANGIE - Last Filed: 10/04/17 09:09> Physical Exam - Extremities General lower extremity: Other - The left foot has some 1 mm excoriations with minimal surrounding erythema. These areas are tender. There is a very superficial abrasion type injury noted around the ankle with a sharp proximal demarcation suggesting that he may have been in wet socks and shoes at some point recently. Most of the skin of the foot is not involved. <NEFTALY CHAPMAN - Last Filed: 10/04/17 07:49> <BALTAMATTHEWVANGIE - Last Filed: 10/04/17 09:09> - Vital signs Vitals: Temp Pulse Resp BP Pulse Ox 97.9 F 89 16 134/79 H 99 10/04/17 05:37 10/04/17 05:37 10/04/17 05:37 10/04/17 05:37 10/04/17 05:37 - Notes Notes: GENERAL: Sleeping in bed, has difficulty staying awake. No acute distress. HEAD: Normocephalic, atraumatic. EYES: Pupils equal, round, and reactive to light. Extraocular movements intact. ENT: Oral mucosa moist, tongue midline. NECK: Full range of motion. Supple. Trachea midline. LUNGS: Clear to auscultation bilaterally, no wheezes, rales, or rhonchi. No respiratory distress. HEART: Regular rate and rhythm. No murmurs, gallops, or rubs. ABDOMEN: Soft, non-tender. Non-distended. Bowel sounds present in all 4 quadrants. EXTREMITIES: Moves all 4 extremities spontaneously. No edema NEUROLOGICAL: Sleeping throughout most exam. Normal speech. PSYCH: Sleeping throughout exam. SKIN: Warm, dry, normal turgor. On the dorsal aspect of the left foot there is an abrasion like rash with a sharp demarcation line suggestive of shoes or socks on the medial aspect. On the dorsal aspect of left foot there is an 1- 2mm ulcerated area which is tender to palpation with minimal erythema. (RAUL GIFFORD) - Vital Signs Vital signs: Temp Pulse Resp BP Pulse Ox 97.4 F 83 16 112/64 96 10/04/17 07:54 10/04/17 07:54 10/04/17 07:54 10/04/17 07:54 10/04/17 07:54 Discharge <NEFTALY CHAPMAN - Last Filed: 10/04/17 07:49> <RAUL GIFFORD - Last Filed: 10/04/17 09:09> - Discharge Clinical Impression: Cellulitis of left foot Condition: Stable Disposition: HOME, SELF-CARE Additional Instructions: Cellulitis You have an infection of your skin and underlying soft tissues called cellulitis. This is due to bacteria, which can enter through any break in the skin, or even through an irritated hair follicle. Untreated, cellulitis will usually worsen. Antibiotics are required. Usually, warm packs or warm soaks, and elevation of the infected area are recommended. You should start getting better within 24 to 36 hours. Most infections respond quickly to the right medication. Follow-up care is important, however, to check for abscess (boil) formation, unsuspected foreign body, or resistant infection. If you develop fever, chills, or if the area of infection is becoming rapidly more swollen or painful, call the doctor at once. You appear to have a cellulitis to your left dorsal foot developing. You have some very small eroded areas that could have been blistered before and are now becoming infected. You should keep the foot clean, washing it at least once daily with warm soap and water. Use Neosporin or bacitracin ointment on the open wounds on the foot. Take antibiotics as prescribed. Follow-up with local medical doctor if your foot does not improve. Prescriptions: Doxycycline Hyclate 100 mg PO BID #10 tablet Scribe Attestation: 10/04/17 07:52 I personally performed the services described in the documentation, reviewed and edited the documentation which was dictated to the scribe in my presence, and it accurately records my words and actions. (NEFTALY CHAPMAN) Scribe Documentation - Scribe Written by Vickie:: Vickie Germain, 10/04/2017 07:23 acting as scribe for :: Jazmine <RAUL GIFFORD - Last Filed: 10/04/17 09:09>
[2017-10-04] MEDS ORDERED: DOXYCYCLINE HYCLATE 100 MG TABLET PO ONE (07:15)
[2017-10-04 07:57] VITALS: BP 112/64
== END 2017-10-04 07:57 | disposition home or self-care (01) ==
LOC: ER 05:30
DX: L03.116 Cellulitis of left lower limb (principal); S90.519A Abrasion, unspecified ankle, initial encounter; X58.XXXA Exposure to other specified factors, initial encounter; F15.10 Other stimulant abuse, uncomplicated; F12.10 Cannabis abuse, uncomplicated; F17.210 Nicotine dependence, cigarettes, uncomplicated; Z91.040 Latex allergy status
CPT/HCPCS: 99283; A9270

== ENCOUNTER 2017-10-10 14:40 | Emergency (ER) | payer MEDICARE ==
--- NOTE | 2017-10-10 15:24 | ER Document Report ---
HPI - HPI Patient complains to provider of: Dizzy Onset: This afternoon Pain Level: 2 Context: 27-year-old male walked 45 minutes from the sober living house on his way to [place] and felt dizzy, lightheaded, spinning when he was in front of the hospital so he went into the hospital front lobby to call his girlfriend. He feels like he was dehydrated. The nurse told him to sit down and he drank water. The symptoms of now resolved. He also had not eaten anything today. No chest pain or shortness of breath. No nausea vomiting or diarrhea. No abdominal pain. No arm or leg pain. No fever or chills. No sore throat runny nose or cough. He also wants me to refill his Abilify and Seroquel. Associated Symptoms: None Exacerbated by: Denies Relieved by: Denies Similar symptoms previously: Yes Recently seen / treated by doctor: No - ROS ROS below otherwise negative: Yes Systems Reviewed and Negative: Yes All other systems reviewed and negative Past Medical History - General Information source: Patient - Social History Smoking Status: Unknown if Ever Smoked Frequency of alcohol use: None Drug Abuse: None Lives with: Other - Sober living shelter Family History: Reviewed & Not Pertinent, Arthritis, CVA, DM, Hypertension, Malignancy Neurological Medical History: Reports: Hx Seizures - Patient reports 3 seizures , but thinks they were drug-induced. 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 Musculoskeletal Medical History: Reports Hx Arthritis - hands Psychiatric Medical History: Reports: Hx Attention Deficit Hyperactivity Disorder, Hx Bipolar Disorder, Hx Depression - manic, Hx Schizophrenia Past Surgical History: Reports: Hx Oral Surgery - Immunizations Immunizations up to date: Yes Hx Diphtheria, Pertussis, Tetanus Vaccination: Yes - 2013 Vertical Provider Document - CONSTITUTIONAL Agree With Documented VS: Yes Exam Limitations: No Limitations - INFECTION CONTROL TRAVEL OUTSIDE OF THE U.S. IN LAST 30 DAYS: No - HEENT HEENT: Normal ENT Exam, Normocephalic - NECK Neck: Supple. negative: Lymphadenopathy-Left, Lymphadenopathy-Right - RESPIRATORY Respiratory: Breath Sounds Normal, No Respiratory Distress - CARDIOVASCULAR Cardiovascular: Regular Rate, Regular Rhythm - Orthostatics are negative - GI/ABDOMEN Gastrointestinal: Abdomen Soft, Abdomen Non-Tender, No Organomegaly - MUSCULOSKELETAL/EXTREMETIES Musculoskeletal/Extremeties: MAEW, FROM - NEURO Level of Consciousness: Awake - DERM Integumentary: No Rash Course - Vital Signs Vital signs: Temp Pulse Resp BP Pulse Ox 97.9 F 81 18 124/87 H 96 10/10/17 15:06 10/10/17 15:06 10/10/17 15:06 10/10/17 15:06 10/10/17 15:06 Discharge - Discharge Clinical Impression: Episode of dizziness Condition: Good Disposition: HOME, SELF-CARE Instructions: Dizziness ([facility]), [facility] Additional Instructions: Make sure you hydrate with water before you do any walking in the heat Return to the emergency room for any concerns or recurrence of the symptoms.
[2017-10-10 15:37] VITALS: BP 128/74
== END 2017-10-10 16:09 | disposition home or self-care (01) ==
LOC: ER 14:40
DX: R42 Dizziness and giddiness (principal)
CPT/HCPCS: 99284

== ENCOUNTER 2018-04-26 08:55 | Emergency (ER) | payer MEDICARE ==
[2018-04-26 09:00] VITALS: BP 121/80
[2018-04-26 10:54] LABS: ABSOLUTE BASOPHILS # (AUTO) 0.1 10^3/uL (0.0-0.2); ABSOLUTE EOSINOPHILS # (AUTO) 0.2 10^3/uL (0.0-0.6); ABSOLUTE LYMPHOCYTES (AUTO) 2.1 10^3/uL (0.5-4.7); ABSOLUTE MONOCYTES (AUTO) 0.8 10^3/uL (0.1-1.4); EOSINOPHILS % (AUTO) 2.5 % (0-6); HEMATOCRIT 43.7 % (37.9-51.0); HEMOGLOBIN 15.1 g/dL (13.5-17.0); LYMPHOCYTES % (AUTO) 25.5 % (13-45); MEAN CORPUSCULAR HEMOGLOBIN 30.3 pg (27.0-33.4); MEAN CORPUSCULAR HGB CONC 34.5 g/dL (32.0-36.0); MEAN CORPUSCULAR VOLUME 88 fl (80-97); MONOCYTES % (AUTO) 10.2 % (3-13); PLATELET COUNT 239 10^3/uL (150-450); RED BLOOD COUNT 4.97 10^6/uL (4.35-5.55); RED CELL DISTRIBUTION WIDTH 13.9 % (11.5-14.0); SEGMENTED NEUTROPHILS % (AUTO) 60.8 % (42-78); TOTAL CELLS COUNTED % (AUTO) 100 %; WHITE BLOOD COUNT 8.2 10^3/uL (4.0-10.5)
[2018-04-26 11:11] LABS: ALANINE AMINOTRANSFERASE 29 U/L (21-72); ALBUMIN 5.1 g/dL (3.5-5.0); ALKALINE PHOSPHATASE 68 U/L (38-126); ANION GAP 10 (5-19); ASPARTATE AMINO TRANSFERASE 31 U/L (17-59); BILIRUBIN,DIRECT 0.2 mg/dL (0.0-0.4); BILIRUBIN,TOTAL 1.1 mg/dL (0.2-1.3); BLOOD UREA NITROGEN 17 mg/dL (7-20); CALCIUM 10.5 mg/dL (8.4-10.2); CARBON DIOXIDE 28 mmol/L (22-30); CHLORIDE 102 mmol/L (98-107); GLUCOSE 99 mg/dL (75-110); POTASSIUM 4.6 mmol/L (3.6-5.0); SODIUM 140.1 mmol/L (137-145); TOTAL PROTEIN 7.7 g/dL (6.3-8.2)
[2018-04-26 11:12] LABS: ACETAMINOPHEN < 10 ug/mL (10-30); ALCOHOL < 10 mg/dL (NONE DETECTED); SALICYLATE < 1.0 mg/dL (2.0-20.0)
--- NOTE | 2018-04-26 14:06 | ER Document Report ---
ED General - General TRAVEL OUTSIDE OF THE U.S. IN LAST 30 DAYS: No <TOYIN WEST - Last Filed: 04/26/18 14:42> <CHRISTI REYNOSO - Last Filed: 04/26/18 14:52> - General Chief Complaint: Psych Problem Stated Complaint: PSYCH Time Seen by Provider: 04/26/18 10:19 - HPI Notes: Patient presents to the emergency department for evaluation. He states he believes he is possessed by the devil. He states he thought he was possessed in the past by a demon, but now he is concerned it is truly the devil. He denies any suicidal or homicidal ideations. No visual or auditory hallucinations. He was actually recently discharged from a rehab facility. They wrote him p rescriptions for his psychiatric medications. He stated he could not go pick them up because he was too worried about his possession. (TOYIN WEST) - Related Data Allergies/Adverse Reactions: latex [Latex] Allergy (Unknown, Verified 04/26/18 08:55) Penicillins Allergy (Verified 04/26/18 08:55) bees Allergy (Uncoded 04/26/18 08:55) Past Medical History - General Information source: Patient - Social History Smoking Status: Current Every Day Smoker Family History: Reviewed & Not Pertinent, Arthritis, CVA, DM, Hypertension, Malignancy Patient has suicidal ideation: No Patient has homicidal ideation: No Neurological Medical History: Reports: Hx Seizures - Patient reports 3 seizures, but thinks they were drug-induced. 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 Musculoskeletal Medical History: Reports Hx Arthritis - hands Psychiatric Medical History: Reports: Hx Attention Deficit Hyperactivity Disorder, Hx Bipolar Disorder, Hx Depression - manic, Hx Schizophrenia Past Surgical History: Reports: Hx Oral Surgery - Immunizations Immunizations up to date: Yes Hx Diphtheria, Pertussis, Tetanus Vaccination: Yes - 2012 <TOYIN WEST - Last Filed: 04/26/18 14:42> Review of Systems - Review of Systems Constitutional: No symptoms reported EENT: No symptoms reported Cardiovascular: No symptoms reported Respiratory: No symptoms reported Gastrointestinal: No symptoms reported Musculoskeletal: No symptoms reported Skin: No symptoms reported Neurological/Psychological: See HPI <TOYIN WEST - Last Filed: 04/26/18 14:42> Physical Exam <TOYIN WEST - Last Filed: 04/26/18 14:42> - Vital signs Vitals: Temp Pulse Resp BP Pulse Ox 99.0 F 108 H 18 121/80 97 04/26/18 08:59 04/26/18 08:59 04/26/18 08:59 04/26/18 08:59 04/26/18 08:59 - Notes Notes: Vital signs reviewed, please refer to chart. Patient is normocephalic, atraumatic. Pupils equal round, reactive to light. Neck is supple without meningismus. Heart is regular rate and rhythm. Lungs are clear to auscultation bilaterally. Abdomen is soft, nontender, normoactive bowel sounds throughout. Extremities without cyanosis, clubbing, edema. Peripheral pulses are equal. Skin is warm and dry. Patient is awake, alert, neurological exam is nonfocal. She is cooperative but does avoid eye contact. He seems slightly anxious. (TOYIN WEST) Course - Laboratory Result Diagrams: 04/26/18 10:42 04/26/18 10:42 <GUTIERREZ WESTNIKOLAY Leigh - Last Filed: 04/26/18 14:42> - Laboratory Result Diagrams: 04/26/18 10:42 04/26/18 10:42 <CHRISTI REYNOSO - Last Filed: 04/26/18 14:52> - Re-evaluation Re-evalutation: 04/26/18 14:06 Presents to the emergency department for evaluation. He has [employer] insurance at this time. He was supposed to get in [place], which his insurance does not cover here. We are trying to get him switched to extended release Haldol IM. Patient currently denying any suicidal or homicidal ideation. Areas outpatient follow-up. Already has prescriptions at [facility] that he is supposed to start. We will discharge the patient once we obtain a long-acting antipsychotic. He is to return to the ED with worsening or new concerning symptoms of any sort. 04/26/18 14:42 Went back to reevaluate the patient. The patient was walking down the hallway, followed by security. He stated that he could not wait any longer. I reiterated with him that he is not actively suicidal or homicidal. He again stated that this was the case. He already has outpatient follow-up. He actually has a prescription for a long-acting antipsychotic medication in [place], which would be paid for. I do not see any imminent danger to this patient leaving the emergency department AGAINST MEDICAL ADVICE. He would not wait to sign any paperwork. (TOYIN WEST) - Vital Signs Vital signs: Temp Pulse Resp BP Pulse Ox 99.0 F 108 H 18 121/80 97 04/26/18 08:59 04/26/18 08:59 04/26/18 08:59 04/26/18 08:59 04/26/18 08:59 - Laboratory Laboratory results interpreted by me: 04/26/18 10:42 Calcium 10.5 H Albumin 5.1 H Salicylates < 1.0 L Acetaminophen < 10 L Discharge <TOYIN WEST - Last Filed: 04/26/18 14:42> <CHRISTI REYNOSO - Last Filed: 04/26/18 14:52> - Discharge Clinical Impression: Psychosis, Schizophrenia, History of substance abuse Condition: Stable Disposition: HOME, SELF-CARE Additional Instructions: You have been evaluated and assessed at [facility] Emergency Department by both the medical and behavioral health teams after presenting for medication refill and are now deemed appropriate for discharge. While in the ED, you received an initial medical screening, lab work, EKG, medications, direct staff observation, clinical evaluation, physician assessment, and outpatient resources. You were cleared from both services and record review revealed a history of substance abu se. Rather than use drugs, you are encouraged to develop positive coping skills through outpatient counseling. A list of local outpatient substance abuse and counseling provider and contact information for mobile crisis services was provided to you. You are also encouraged to follow up with your outpatient mental health provider at [facility] or another provider of your choosing and maintain compliance with your prescribed medication. ACUTE ALCOHOL INTOXICATION and ALCOHOL ABUSE: Your evaluation revealed very high levels of alcohol. You can from drinking a large amount of alcohol rapidly! Further, there's the risk of falls, traffic accidents, and fights. A high portion (about 50 percent) of the serious injuries seen in hospital emergency rooms are caused by alcohol. Alcohol overdosage is usually due to an underlying emotional or psychiatric problem. You may benefit from counselling. If "binge" drinking is an ongoing problem for you, or if you drink ANY AMOUNT of alcohol EVERY day, you most likely have a tendency to alcoholism. You should avoid alcohol totally. We can refer you for treatment. Persons with alcohol problems are often also prone to other addictions -- you should discuss any use of medications or drugs with the doctor. You should be watched at home for the next several hours by someone who has not been drinking. Get extra fluids for the next 24 hours. Call the doctor if there is repeated vomiting, increasing headache, decreasing level of alertness, or any other worsening. CHRONIC ALCOHOLISM and ALCOHOL ABUSE: Your evaluation reveals evidence of chronic alcoholism, an addiction to alcohol. The tendency to alcoholism may be inherited. Chronic use of alcohol weakens muscles, causes fatty deposits in the liver, damages the stomach, makes you more prone to infections, and can cause defects in unborn children. In the long run, brain atrophy and cirrhosis of the liver result. You are also at greater risk for certain types of cancer, such as cancer of the mouth, throat, stomach, and liver. Counselling services are available to help you. In-hospital treatment programs often help. Support groups such as Alcoholics Anonymous can be very useful in beating this addiction. Your physician can make a referral for you. As alcoholics often are prone to other addictions, you should discuss your use of any other medications with the doctor. ALCOHOL WITHDRAWAL: Your symptoms are caused by alcohol withdrawal. After a period of frequent drinking, the brain and body are changed by the alcohol. When you quit or reduce your drinking, the nervous system becomes unstable. Withdrawal symptoms can start a few hours after your last drink, but sometimes don't begin until a couple of days later. Symptoms can include shakiness, sweating, insomnia, nausea, vomiting, fearfulness, hallucinations, and seizures. In addition to the acute effects of alcohol withdrawal, we often have to deal with the medical effects of alcoholism. These problems often include dehydration, stomach irritation, intestinal bleeding, low blood sugar, liver disease, and pancreas inflammation. Treatment for alcohol withdrawal includes mild sedatives, vitamins, and fluids. You need to be with someone who can help if symptoms become severe. Many patients can withdraw at home. Admission to the hospital or a detox facility may be necessary if withdrawal symptoms are severe and uncontrollable. Abstaining from alcohol is the only effective long-term treatment. If you start drinking again, you will not be able to control yourself after the first drink. Treatment programs are available. In addition, many alcoholics benefit from Alcoholics Anonymous or other support groups available through your counselor or jew security control assessor. AL-ANON and ALA-TEEN are support groups for friends and family members of an alcoholic. Go to the emergency room if you develop persistent vomiting, severe abdominal pain, fever, shortness of breath, hallucinations, uncontrollable tremors, or seizures. COCAINE ABUSE: Cocaine causes many dangerous medical problems. Problems can occur even with "usual" amounts. Cocaine affects judgement, creating a sense of invulnerability. Cocaine users often make bad decisions that seem "great" at the time. Most cocaine users eventually will be hurt by bad job performance, damaged personal relations, crime, and unsafe sexual practices. Toxic effects of cocaine can include seizures, hallucinations, delusions, high blood pressure, heart damage, or sudden . There's always the risk of a "bad batch." But heart attacks, brain hemorrhages, or cardiac arrest can occur unpredictably even with "normal" use. Injection of cocaine is risky for abscesses, endocarditis (heart in fection), pneumonia, and AIDS. Withdrawal from cocaine often causes anxiety and drug cravings. Some users become paranoid and psychotic. Many treatment programs are available, but you must make the decision to quit. Medication can be prescribed to control the symptoms of cocaine toxicity (beta blockers or benzodiazepines). Withdrawal symptoms may require tranquilizers. NARCOTIC / OPIOD ABUSE: Narcotics and opiods are pain-relieving drugs that are often abused. They are addicting. Narcotics cause euphoria, but it often takes increasing amounts to "feel good" and avoid withdrawal symptoms. Overdose of narcotics causes small pupils, coma, and decreased breathing. It's a common cause of . Purity of street narcotics is unpredictable. Injection of narcotics is risky for abscesses, endocarditis (heart infection), pneumonia, and AIDS. Withdrawal from narcotics causes goose bumps, watery mouth, sweating, nasal congestion, muscle aches, abdominal cramps, vomiting, and diarrhea. There's often restlessness and confusion. Treatment programs are available, but you must make the decision to quit. Medication (such as clonidine) can be prescribed to control the symptoms of withdrawal. AMPHETAMINE / METHAMPHETAMINE ABUSE: Amphetamines are addicting stimulants. Amphetamines overstimulate the nervous system and give a false feeling of power and mastery. These drugs may be obtained as prescription pills for weight loss, narcolepsy, or attention-deficit disorder. More often they're bought as an illegal street drug, methamphetamine (crank, crystal, speed). Using amphetamines repeatedly can lead to serious medical problems including malnutrition, severe depression, and paranoia. It can take increasing amounts to feel good. Eventually, there will be a "burn out." When you go off amphetamines there is a period of depression that may last for weeks or even months. High doses of amphetamines can cause seizures, confusion, hallucinations, delusions, high blood pressure, muscle damage, heart damage, or sudden . Many times these deadly complications occur even with "normal" doses. Injection of amphetamines is risky for developing abscesses, endocarditis (heart infection), pneumonia, and AIDS. Withdrawal from amphetamines often causes anxiety, depression, and drug cravings. Some users become paranoid and psychotic. There may be cramps, nausea, and vomiting. Many treatment programs are available, but you must make the decision to quit. Medication can be prescribed to control the symptoms of amphetamine toxicity (beta blockers or benzodiazepines). Withdrawal symptoms may require tranquilizers. FOLLOW-UP CARE: If you have been referred to a physician for follow-up care, call the physicians office for an appointment as you were instructed or within the next two days. If you experience worsening or a significant change in your symptoms, notify the physician immediately or return to the Emergency Department at any time for re-evaluation. Referrals: [facility] [Provider Group] - Follow up as needed
--- NOTE | 2018-04-26 15:15 | PSYCHOLOGICAL NOTE ---
Psych Note - Psych Note Date seen by psych provider: 04/26/18 Time seen by psych provider: 12:00 Psych Note: Reason for consult: Contact Permissions: Patient is alert and oriented x 4. Mood is impatient with congruent affect aeb patient is hungry wants to leave now/doesn't want to wait for medication. Patient denies SI, HI, and AV/H, does not appear to be responding to internal stimuli. Delusions were noted as patient reported that he was possessed by the devil. Conversational speech was WNL for rate, tone, and prosody. Eye contact was well maintained. Thought processes were linear and organized. Intellectual abilities were estimated within the average range. Attention/concentration was WNL while, insight, judgment, and impulse control were impaired. Diagnosis: V60.0 (Z59.0) Homelessness 292.9 (F14.99) Unspecified Cocaine Related Disorder per history History of Methamphetamine Use per patient History of Alcohol Use per patient (4 years sober with exception of shot here or there, but not been drunk) R/O 301.83 (F60.3) Borderline Personality Disorder Medication recommendations as per psychiatric provider, Dr. Naylor are as follows: No medication recommendations at this time Impression/Plan: Patient is psychiatrically clear from acute psychiatric services as he does not meet criteria for [place] GS 122-C for risk of harm to self or others aeb patient denies, SI, HI, and AV/H does not appear to be responding to internal stimuli and no delusions were noted. He is recommended to discharge to home/self-care with plan to follow up with his MH provider at [facility] or another provider of his choosing. Patient is a 27 yo male presenting to the ED for medication refill on which was given to him as a script from [facility] in [place] at his [facility] discharge on Saturday. [facility] does not carry in its formulary so Behavioral Health coordinated with patient's family to get his prescription filled and brought to him at the ED however, patient is self pay in [place] so this medication is not affordable for him. Patient refused to give a urine sample so an alternative medication could not be recommended for concern of drug/medication interactions. Patient family Ms. Castillo will continue to support and provide transportation to appointments. Consulted Dr. Blair in the care and treatment of this patient and ED physician who is in agreement with disposition and recommendation.
--- NOTE | 2018-04-26 17:24 | EKG REPORT ---
SEVERITY:- NORMAL ECG - SINUS RHYTHM : Confirmed by: Cong Serna MD 26-Apr-2018 17:23:13
== END 2018-04-26 14:45 | disposition home or self-care (01) ==
LOC: ER 08:55
DX: F20.9 Schizophrenia, unspecified (principal); T43.596A Underdosing of other antipsychotics and neuroleptics, initial encounter; Z91.128 Patient's intentional underdosing of medication regimen for other reason; Z91.14 Patient's other noncompliance with medication regimen; F17.200 Nicotine dependence, unspecified, uncomplicated; Z91.040 Latex allergy status; Z88.0 Allergy status to penicillin; Z91.030 Bee allergy status; Z53.20 Procedure and treatment not carried out because of patient's decision for unspecified reasons; Z59.0 Homelessness
CPT/HCPCS: 36415; 80053; 80307; 85025; 93005; 93010; 99284

== ENCOUNTER 2018-04-26 15:48 | Emergency (ER) | payer MEDICARE ==
[2018-04-26 15:53] VITALS: BP 147/101
== END 2018-04-26 16:58 | disposition left against medical advice (07) ==
LOC: ER 15:48
DX: Z53.21 Procedure and treatment not carried out due to patient leaving prior to being seen by health care provider (principal)

== ENCOUNTER 2018-04-29 02:11 | Emergency (ER) | payer MEDICARE ==
--- NOTE | 2018-04-29 02:28 | ER Document Report ---
ED General - General Stated Complaint: PSYCH PROBLEM Time Seen by Provider: 04/29/18 02:16 TRAVEL OUTSIDE OF THE U.S. IN LAST 30 DAYS: No - Related Data Allergies/Adverse Reactions: latex [Latex] Allergy (Unknown, Verified 04/26/18 15:48) Penicillins Allergy (Verified 04/26/18 15:48) bees Allergy (Uncoded 04/26/18 15:48) Past Medical History - Social History Smoking Status: Unknown if Ever Smoked Chew tobacco use (# tins/day): Yes Family History: Reviewed & Not Pertinent, Arthritis, CVA, DM, Hypertension, Malignancy Patient has suicidal ideation: No Patient has homicidal ideation: Yes Neurological Medical History: Reports: Hx Seizures - Patient reports 3 seizures, but thinks they were drug-induced. 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 Musculoskeletal Medical History: Reports Hx Arthritis - hands Psychiatric Medical History: Reports: Hx Attention Deficit Hyperactivity Disorder, Hx Bipolar Disorder, Hx Depression - manic, Hx Schizophrenia Past Surgical History: Reports: Hx Oral Surgery - Immunizations Immunizations up to date: Yes Hx Diphtheria, Pertussis, Tetanus Vaccination: Yes - 2012 Physical Exam - Vital signs Vitals: Temp Pulse Resp BP Pulse Ox 97.2 F 100 18 133/92 H 100 04/29/18 02:19 04/29/18 02:19 04/29/18 02:19 04/29/18 02:19 04/29/18 02:19 Course - Vital Signs Vital signs: Temp Pulse Resp BP Pulse Ox 97.2 F 100 18 133/92 H 100 04/29/18 02:19 04/29/18 02:19 04/29/18 02:19 04/29/18 02:19 04/29/18 02:19 - EKG Interpretation by Me Additional EKG results interpreted by me: 04/29/18 02:27 EKG is reviewed and interpreted by me. EKG shows sinus rhythm with a rate of [address] segment elevation or depression. No ischemic T wave inversions. [place] interval, QRS duration are within normal range. QT interval slightly prolonged. Old EKG for comparison is from April 26, 2018.
--- NOTE | 2018-04-29 02:32 | ER Document Report ---
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 While in the ED, you received an initial medical screening, lab work, EKG, medications, direct staff observation, clinical evaluation, physician assessment, and outpatient resources. You were cleared from both services and record review revealed a hi story of substance abuse and substance addiction history. You are recommended to engage and participate in substance abuse treatment. There is also a history of medication non-compliance so you are recommended to follow up with your mental health provider at [facility] or another provider of your choice, be compliant with treatment, and take any medication as prescribed. Mobile crisis resources were provided to you for when crisis situations arise. A list of local mental health and substance abuse providers was given to you. ACUTE ALCOHOL INTOXICATION and ALCOHOL ABUSE: Your evaluation revealed very high levels of alcohol. You can from drinking a large amount of alcohol rapidly! Further, there's the risk of falls, traffic accidents, and fights. A high portion (about 50 percent) of the serious injuries seen in hospital emergency rooms are caused by alcohol. Alcohol overdosage is usually due to an underlying emotional or psychiatric problem. You may benefit from counselling. If "binge" drinking is an ongoing problem for you, or if you drink ANY AMOUNT of alcohol EVERY day, you most likely have a tendency to alcoholism. You should avoid alcohol totally. We can refer you for treatment. Persons with alcohol problems are often also prone to other addictions -- you should discuss any use of medications or drugs with the doctor. You should be watched at home for the next several hours by someone who has not been drinking. Get extra fluids for the next 24 hours. Call the doctor if there is repeated vomiting, increasing headache, decreasing level of alertness, or any other worsening. CHRONIC ALCOHOLISM and ALCOHOL ABUSE: Your evaluation reveals evidence of chronic alcoholism, an addiction to alcohol. The tendency to alcoholism may be inherited. Chronic use of alcohol weakens muscles, causes fatty deposits in the liver, damages the stomach, makes you more prone to infections, and can cause defects in unborn children. In the long run, brain atrophy and cirrhosis of the liver result. You are also at greater risk for certain types of cancer, such as cancer of the mouth, throat, stomach, and liver. Counselling services are available to help you. In-hospital treatment programs often help. Support groups such as Alcoholics Anonymous can be very useful in beating this addiction. Your physician can make a referral for you. As alcoholics often are prone to other addictions, you should discuss your use of any other medications with the doctor. ALCOHOL WITHDRAWAL: Your symptoms are caused by alcohol withdrawal. After a period of frequent drinking, the brain and body are changed by the alcohol. When you quit or reduce your drinking, the nervous system becomes unstable. Withdrawal symptoms can start a few hours after your last drink, but sometimes don't begin until a couple of days later. Symptoms can include shakiness, sweating, insomnia, nausea, vomiting, fearfulness, hallucinations, and seizures. In addition to the acute effects of alcohol withdrawal, we often have to deal with the medical effects of alcoholism. These problems often include dehydration, stomach irritation, intestinal bleeding, low blood sugar, liver dis ease, and pancreas inflammation. Treatment for alcohol withdrawal includes mild sedatives, vitamins, and fluids. You need to be with someone who can help if symptoms become severe. Many patients can withdraw at home. Admission to the hospital or a detox facility may be necessary if withdrawal symptoms are severe and uncontrollable. Abstaining from alcohol is the only effective long-term treatment. If you start drinking again, you will not be able to control yourself after the first drink. Treatment programs are available. In addition, many alcoholics benefit from Alcoholics Anonymous or other support groups available through your counselor or [employer] sulf[employer]. AL-ANON and ALA-TEEN are support groups for friends and family members of an alcoholic. Go to the emergency room if you develop persistent vomiting, severe abdominal pain, fever, shortness of breath, hallucinations, uncontrollable tremors, or seizures. COCAINE ABUSE: Cocaine causes many dangerous medical problems. Problems can occur even with "usual" amounts. Cocaine affects judgement, creating a sense of invulnerability. Cocaine users often make bad decisions that seem "great" at the time. Most cocaine users eventually will be hurt by bad job performance, damaged personal relations, crime, and unsafe sexual practices. Toxic effects of cocaine can include seizures, hallucinations, delusions, high blood pressure, heart damage, or sudden . There's always the risk of a "bad batch." But heart attacks, brain hemorrhages, or cardiac arrest can occur unpredictably even with "normal" use. Injection of cocaine is risky for abscesses, endocarditis (heart infectio n), pneumonia, and AIDS. Withdrawal from cocaine often causes anxiety and drug cravings. Some users become paranoid and psychotic. Many treatment programs are available, but you must make the decision to quit. Medication can be prescribed to control the symptoms of cocaine toxicity (beta blockers or benzodiazepines). Withdrawal symptoms may require tranquilizers. NARCOTIC / OPIOD ABUSE: Narcotics and opiods are pain-relieving drugs that are often abused. They are addicting. Narcotics cause euphoria, but it often takes increasing amounts to "feel good" and avoid withdrawal symptoms. Overdose of narcotics causes small pupils, coma, and decreased breathing. It's a common cause of . Purity of street narcotics is unpredictable. Injection of narcotics is risky for abscesses, endocarditis (heart infection), pneumonia, and AIDS. Withdrawal from narcotics causes goose bumps, watery mouth, sweating, nasal congestion, muscle aches, abdominal cramps, vomiting, and diarrhea. There's often restlessness and confusion. Treatment programs are available, but you must make the decision to quit. Medication (such as clonidine) can be prescribed to control the symptoms of withdrawal. AMPHETAMINE / METHAMPHETAMINE ABUSE: Amphetamines are addicting stimulants. Amphetamines overstimulate the nervous system and give a false feeling of power and mastery. These drugs may be obtained as prescription pills for weight loss, narcolepsy, or attention-deficit disorder. More often they're bought as an illegal street drug, methamphetamine (crank, crystal, speed). Using amphetamines repeatedly can lead to serious medical problems including malnutrition, severe depression, and paranoia. It can take increasing amounts to feel good. Eventually, there will be a "burn out." When you go off amphetamines there is a period of depression that may last for weeks or even months. High doses of amphetamines can cause seizures, confusion, hallucinations, delusions, high blood pressure, muscle damage, heart damage, or sudden . Many times these deadly complications occur even with "normal" doses. Injection of amphetamines is risky for developing abscesses, endocarditis (heart infection), pneumonia, and AIDS. Withdrawal from amphetamines often causes anxiety, depression, and drug cravings. Some users become paranoid and psychotic. There may be cramps, nausea, and vomiting. Many treatment programs are available, but you must make the decision to quit. Medication can be prescribed to control the symptoms of amphetamine toxicity (beta blockers or benzodiazepines). Withdrawal symptoms may require tranquilizers. OVERDOSE / INGESTION: You have taken more medication than you should have. After your evaluation and care, it is felt that your overdose is not likely to be harmful or of any significant consequences to you and you are being discharged. In the future, you should be careful not to take more medications than what is prescribed for you. Although your overdose does not seem to be of any danger to you at this time, if you develop any unusual or unexpected symptoms after your discharge, you should return to the Emergency Department immediately for re-evaluation. INSTRUCTIONS FOR HOME CARE FOLLOWING DRUG OVERDOSAGE: The doctor feels it's safe for you to go home. You will need to be observed. If charcoal and a laxative was given to you, expect some loose black stools soon. Take no medications unless approved by a physician, including alcohol. If drowsy, lie on your stomach or side for sleeping to avoid aspiration if vomiting occurs. Take only liquids by mouth until there is no more nausea. FOR THE OBSERVER: Observe the patient for the next 24 hours and call or go to the hospital if any of the following are noted: prolonged or repeated vomiting, difficulty in arousi ng, convulsions (seizures or fits), fever, persistent cough, breathing that is too slow or too rapid, or confused or bizarre behavior. If a counselling visit has been arranged, make sure the patient attends. Call the physician or poison control if you have questions. FOLLOW-UP CARE: If you have been referred to a physician for follow-up care, call the physicians office for an appointment as you were instructed or within the next two days. If you experience worsening or a significant change in your symptoms, notify the physician immediately or return to the Emergency Department at any time for re-evaluation. 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 While in the ED, you received an initial medical screening, lab work, EKG, medications, direct staff observation, clinical evaluation, physician assessment, and outpatient resources. You were cleared from both services and record review revealed a history of substance abuse and substance addiction history. You are recommended to engage and participate in substance abuse treatment. There is also a history of medication non-compliance so you are recommended to follow up with your mental health provider at [facility] or another provider of your choice, be compliant with treatment, and take any medication as prescribed. Mobile crisis resources were provided to you for when crisis situations arise. A list of local mental health and substance abuse providers was given to you. ACUTE ALCOHOL INTOXICATION and ALCOHOL ABUSE: Your evaluation revealed very high levels of alcohol. You can from drinking a large amount of alcohol rapidly! Further, there's the risk of falls, traffic accidents, and fights. A high portion (about 50 percent) of the serious injuries seen in hospital emergency rooms are caused by alcohol. Alcohol overdosage is usually due to an underlying emotional or psychiatric problem. You may benefit from counselling. If "binge" drinking is an ongoing problem for you, or if you drink ANY AMOUNT of alcohol EVERY day, you most likely have a tendency to alcoholism. You should avoid alcohol totally. We can refer you for treatment. Persons with alcohol problems are often also prone to other addictions -- you should discuss any use of medications or drugs with the doctor. You should be watched at home for the next several hours by someone who has not been drinking. Get extra fluids for the next 24 hours. Call the doctor if there is repeated vomiting, increasing headache, decreasing level of alertness, or any other worsening. CHRONIC ALCOHOLISM and ALCOHOL ABUSE: Your evaluation reveals evidence of chronic alcoholism, an addiction to alcohol. The tendency to alcoholism may be inherited. Chronic use of alcohol weakens muscles, causes fatty deposits in the liver, damages the stomach, makes you more prone to infections, and can cause de fects in unborn children. In the long run, brain atrophy and cirrhosis of the liver result. You are also at greater risk for certain types of cancer, such as cancer of the mouth, throat, stomach, and liver. Counselling services are available to help you. In-hospital treatment programs often help. Support groups such as Alcoholics Anonymous can be very useful in beating this addiction. Your physician can make a referral for you. As alcoholics often are prone to other addictions, you should discuss your use of any other medications with the doctor. ALCOHOL WITHDRAWAL: Your symptoms are caused by alcohol withdrawal. After a period of frequent drinking, the brain and body are changed by the alcohol. When you quit or reduce your drinking, the nervous system becomes unstable. Withdrawal symptoms can start a few hours after your last drink, but sometimes don't begin until a couple of days later. Symptoms can include shakiness, sweating, insomnia, na usea, vomiting, fearfulness, hallucinations, and seizures. In addition to the acute effects of alcohol withdrawal, we often have to deal with the medical effects of alcoholism. These problems often include dehydration, stomach irritation, intestinal bleeding, low blood sugar, liver disease, and pancreas inflammation. Treatment for alcohol withdrawal includes mild sedatives, vitamins, and fluids. You need to be with someone who can help if symptoms become severe. Many patients can withdraw at home. Admission to the hospital or a detox facility may be necessary if withdrawal symptoms are severe and uncontrollable. Abstaining from alcohol is the only effective long-term treatment. If you start drinking again, you will not be able to control yourself after the first drink. Treatment programs are available. In addition, many alcoholics benefit from Alcoholics Anonymous or other support groups available through your counselor or [employer]. AL-ANON and ALA-TEEN are support groups for friends and family members of an alcoholic. Go to the emergency room if you develop persistent vomiting, severe abdominal pain, fever, shortness of breath, hallucinations, uncontrollable tremors, or seizures. COCAINE ABUSE: Cocaine causes many dangerous medical problems. Problems can occur even with "usual" amounts. Cocaine affects judgement, creating a sense of invulnerability. Cocaine users often make bad decisions that seem "great" at the time. Most cocaine users eventually will be hurt by bad job performance, damaged personal relations, crime, and unsafe sexual practices. Toxic effects of cocaine can include seizures, hallucinations, delusions, high blood pressure, heart damage, or sudden . There's always the risk of a "bad batch." But heart attacks, brain hemorrhages, or cardiac arrest can occur unpredictably even with "normal" use. Injection of cocaine is risky for abscesses, endocarditis (heart infection), pneumonia, and AIDS. Withdrawal from cocaine often causes anxiety and drug cravings. Some users become paranoid and psychotic. Many treatment programs are available, but you must make the decision to quit. Medication can be prescribed to control the symptoms of cocaine toxicity (beta blockers or benzodiazepines). Withdrawal symptoms may require tranquilizers. NARCOTIC / OPIOD ABUSE: Narcotics and opiods are pain-relieving drugs that are often abused. They are addicting. Narcotics cause euphoria, but it often takes increasing amounts to "feel good" and avoid withdrawal symptoms. Overdose of narcotics causes small pupils, coma, and decreased breathing. It's a common cause of . Purity of street narcotics is unpredictable. Injection of narcotics is risky for abscesses, endocarditis (heart infection), pneumonia, and AIDS. Withdrawal from narcotics causes goose bumps, watery mouth, sweating, nasal congestion, muscle aches, abdominal cramps, vomiting, and diarrhea. There's often restlessness and confusion. Treatment programs are available, but you must make the decision to quit. Medication (such as clonidine) can be prescribed to control the symptoms of withdrawal. AMPHETAMINE / METHAMPHETAMINE ABUSE: Amphetamines are addicting stimulants. Amphetamines overstimulate the nervous system and give a false feeling of power and mastery. These drugs may be obtained as prescription pills for weight loss, narcolepsy, or attention-deficit disorder. More often they're bought as an illegal street drug, methamphetamine (crank, crystal, speed). Using amphetamines repeatedly can lead to serious medical problems including malnutrition, severe depression, and paranoia. It can take increasing amounts to feel good. Eventually, there will be a "burn out." When you go off amphetamines there is a period of depression that may last for weeks or even months. High doses of amphetamines can cause seizures, confusion, hallucinations, delusions, high blood pressure, muscle damage, heart damage, or sudden . Many times these deadly complications occur even with "normal" doses. Injection of amphetamines is risky for developing abscesses, endocarditis (heart infection), pneumonia, and AIDS. Withdrawal from amphetamines often causes anxiety, depression, and drug cravings. Some users become paranoid and psychotic. There may be cramps, nausea, and vomiting. Many treatment programs are available, but you must make the decision to quit. Medication can be prescribed to control the symptoms of amphetamine toxicity (beta blockers or benzodiazepines). Withdrawal symptoms may require t ranquilizers. OVERDOSE / INGESTION: You have taken more medication than you should have. After your evaluation and care, it is felt that your overdose is not likely to be harmful or of any significant consequences to you and you are being discharged. In the future, you should be careful not to take more medications than what is prescribed for you. Although your overdose does not seem to be of any danger to you at this time, if you develop any unusual or unexpected symptoms after your discharge, you should return to the Emergency Department immediately for re-evaluation. INSTRUCTIONS FOR HOME CARE FOLLOWING DRUG OVERDOSAGE: The doctor feels it's safe for you to go home. You will need to be observed. If charcoal and a laxative was given to you, expect some loose black stools soon. Take no medications unless approved by a physician, including alcohol. If drowsy, lie on your stomach or side for sleeping to avoid aspiration if vomiting occurs. Take only liquids by mouth until there is no more nausea. FOR THE OBSERVER: Observe the patient for the next 24 hours and call or go to the hospital if any of the following are noted: prolonged or repeated vomiting, difficulty in arousing, convulsions (seizures or fits), fever, persistent cough, breathing that is too slow or too rapid, or confused or bizarre behavior. If a counselling visit has been arranged, make sure the patient attends. Call the physician or poison control if you have questions. FOLLOW-UP CARE: If you have been referred to a physician for follow-up care, call the physicians office for an appointment as you were instructed or within the next two days. If you experience worsening or a significant change in your symptoms, notify the physician immediately or return to the Emergency Department at any time for re-evaluation. 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 While in the ED, you received an initial medical screening, lab work, EKG, medications, direct staff observation, clinical evaluation, physician assessment, and outpatient resources. You were cleared from both services and record review revealed a history of substance abuse and substance addiction history. You are recommended to engage and participate in substance abuse treatment. There is also a history of medication non-compliance so you are recommended to follow up with your mental health provider at [facility] or another provider of your choice, be compliant with treatment, and take any medication as prescribed. Mobile crisis resources were provided to you for when crisis situations arise. A list of local mental health and substance abuse providers was given to you. ACUTE ALCOHOL INTOXICATION and ALCOHOL ABUSE: Your evaluation revealed very high levels of alcohol. You can from drinking a large amount of alcohol rapidly! Further, there's the risk of falls, traffic accidents, and fights. A high portion (about 50 percent) of the serious injuries seen in hospital emergency rooms are caused by alcohol. Alcohol overdosage is usually due to an underlying emotional or psychiatric problem. You may benefit from counselling. If "binge" drinking is an ongoing problem for you, or if you drink ANY AMOUNT of alcohol EVERY day, you most likely have a tendency to alcoholism. You should avoid alcohol totally. We can refer you for treatment. Persons with alcohol problems are often also prone to other addictions -- you should discuss any use of medications or drugs with the doctor. You should be watched at home for the next several hours by someone who has not been drinking. Get extra fluids for the next 24 hours. Call the doctor if there is repeated vomiting, increasing headache, decreasing level of alertness, or any other worsening. CHRONIC ALCOHOLISM and ALCOHOL ABUSE: Your evaluation reveals evidence of chronic alcoholism, an addiction to alcohol. The tendency to alcoholism may be inherited. Chronic use of alcohol weakens muscles, causes fatty deposits in the liver, damages the stomach, makes you more prone to infections, and can cause defects in unborn children. In the long run, brain atrophy and cirrhosis of the liver result. You are also at greater risk for certain types of cancer, such as cancer of the mouth, throat, stomach, and liver. Counselling services are available to help you. In-hospital treatment programs often help. Support groups such as Alcoholics Anonymous can be very useful in beating this addiction. Your physician can make a referral for you. As alcoholics often are prone to other addictions, you should discuss your use of any other medications with the doctor. ALCOHOL WITHDRAWAL: Your symptoms are caused by alcohol withdrawal. After a period of frequent drinking, the brain and body are changed by the alcohol. When you quit or reduce your drinking, the nervous system becomes unstable. Withdrawal symptoms can start a few hours after your last drink, but sometimes don't begin until a couple of days later. Symptoms can include shakiness, sweating, insomnia, nausea, vomiting, fearfulness, hallucinations, and seizures. In addition to the acute effects of alcohol withdrawal, we often have to deal with the medical effects of alcoholism. These problems often include dehydration, stomach irritation, intestinal bleeding, low blood sugar, liver disease, and pancreas inflammation. Treatment for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
[2018-04-29 02:54] LABS: ABSOLUTE BASOPHILS # (AUTO) 0.1 10^3/uL (0.0-0.2); ABSOLUTE EOSINOPHILS # (AUTO) 0.2 10^3/uL (0.0-0.6); ABSOLUTE LYMPHOCYTES (AUTO) 2.6 10^3/uL (0.5-4.7); ABSOLUTE MONOCYTES (AUTO) 0.6 10^3/uL (0.1-1.4); ABSOLUTE NEUT (AUTO) 4.3 10^3/uL (1.7-8.2); BASOPHILS % (AUTO) 0.9 % (0-2); EOSINOPHILS % (AUTO) 2.5 % (0-6); HEMATOCRIT 39.9 % (37.9-51.0); HEMOGLOBIN 13.8 g/dL (13.5-17.0); LYMPHOCYTES % (AUTO) 33.3 % (13-45); MEAN CORPUSCULAR HEMOGLOBIN 30.5 pg (27.0-33.4); MEAN CORPUSCULAR HGB CONC 34.7 g/dL (32.0-36.0); MEAN CORPUSCULAR VOLUME 88 fl (80-97); MONOCYTES % (AUTO) 7.9 % (3-13); PLATELET COUNT 240 10^3/uL (150-450); RED BLOOD COUNT 4.54 10^6/uL (4.35-5.55); RED CELL DISTRIBUTION WIDTH 13.2 % (11.5-14.0); SEGMENTED NEUTROPHILS % (AUTO) 55.4 % (42-78); TOTAL CELLS COUNTED % (AUTO) 100 %; WHITE BLOOD COUNT 7.8 10^3/uL (4.0-10.5)
[2018-04-29 03:13] LABS: ALANINE AMINOTRANSFERASE 29 U/L (21-72); ALBUMIN 4.9 g/dL (3.5-5.0); ALKALINE PHOSPHATASE 65 U/L (38-126); ANION GAP 11 (5-19); ASPARTATE AMINO TRANSFERASE 25 U/L (17-59); BILIRUBIN,DIRECT 0.2 mg/dL (0.0-0.4); BILIRUBIN,TOTAL 0.7 mg/dL (0.2-1.3); BLOOD UREA NITROGEN 13 mg/dL (7-20); CARBON DIOXIDE 26 mmol/L (22-30); CHLORIDE 103 mmol/L (98-107); GLUCOSE 105 mg/dL (75-110); POTASSIUM 3.8 mmol/L (3.6-5.0); SODIUM 139.7 mmol/L (137-145); TOTAL PROTEIN 7.4 g/dL (6.3-8.2)
[2018-04-29 03:29] LABS: ACETAMINOPHEN < 10 ug/mL (10-30); ALCOHOL < 10 mg/dL (NONE DETECTED); SALICYLATE < 1.0 mg/dL (2.0-20.0)
[2018-04-29 07:43] LABS: APPEARANCE,URINE SLIGHTLY-CLOUDY; BILIRUBIN,URINE NEGATIVE (NEGATIVE); COLOR,URINE YELLOW; GLUCOSE, URINE NEGATIVE (NEGATIVE); KETONES,URINE NEGATIVE (NEGATIVE); LEUKOCYTE ESTERASE,URINE NEGATIVE (NEGATIVE); NITRITE,URINE NEGATIVE (NEGATIVE); PROTEIN,URINE NEGATIVE (NEGATIVE); URINE SPECIFIC GRAVITY 1.016; UROBILINOGEN,URINE NEGATIVE mg/dL (<2.0)
[2018-04-29 07:58] LABS: URINE AMPHETAMINES SCREEN NEGATIVE; URINE BARBITURATES SCREEN NEGATIVE; URINE BENZODIAZEPINES SCREEN NEGATIVE; URINE COCAINE SCREEN NEGATIVE; URINE MARIJUANA (THC) SCREEN NEGATIVE; URINE METHADONE SCREEN NEGATIVE; URINE PHENCYCLIDINE SCREEN NEGATIVE
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
--- NOTE | 2018-04-29 10:00 | ER Document Report ---
Doctor's Note Notes: 04/29/18 09:59 Patient is calm today. He is up walking about. He is not possessed by the devil today. He is anxious to go home. He also states that he needs "heavy medications". 04/29/18 11:20 The patient will be discharged with recommendations for follow-up with mental health and substance abuse counselors.
[2018-04-29 11:35] VITALS: BP 137/86
--- NOTE | 2018-04-29 17:12 | EKG REPORT ---
SEVERITY:- BORDERLINE ECG - SINUS RHYTHM BORDERLINE PROLONGED QT INTERVAL : Confirmed by: Miquel Rios 29-Apr-2018 17:11:27
== END 2018-04-29 11:27 ==
LOC: ER 02:11
DX: R45.850 Homicidal ideations (principal); R44.0 Auditory hallucinations; F14.10 Cocaine abuse, uncomplicated; F15.10 Other stimulant abuse, uncomplicated; Z72.0 Tobacco use; Z91.040 Latex allergy status; Z88.0 Allergy status to penicillin; Z91.030 Bee allergy status
CPT/HCPCS: 36415; 80053; 80307; 81001; 85025; 93005; 93010; 99285

== ENCOUNTER 2018-04-30 15:00 | Emergency (ER) | payer MEDICARE ==
[2018-04-30] MEDS: NORMAL SALINE 1000 ML 1,000 ML IV PRN ×2 (15:34→16:29)
--- NOTE | 2018-04-30 15:55 | RADIOLOGY REPORT (SQ) ---
EXAM DESCRIPTION: CHEST SINGLE VIEW COMPLETED DATE/TIME: 04/30/2018 3:44 pm REASON FOR STUDY: sob COMPARISON: 12/13/2010 EXAM PARAMETERS: NUMBER OF VIEWS: One view. TECHNIQUE: Single frontal radiographic view of the chest acquired. RADIATION DOSE: NA LIMITATIONS: None. FINDINGS: LUNGS AND PLEURA: No opacities, masses or pneumothorax. No pleural effusion. MEDIASTINUM AND HILAR STRUCTURES: No masses. Contour normal. HEART AND VASCULAR STRUCTURES: Heart normal in size. Normal vasculature. BONES: No acute findings. HARDWARE: None in the chest. OTHER: No other significant finding. IMPRESSION: NO ACUTE RADIOGRAPHIC FINDING IN THE CHEST. TECHNICAL DOCUMENTATION: JOB ID: [id number] [employer]- All Rights Reserved Reading location - IP/workstation name: [email or web address]
[2018-04-30 16:00] LABS: ABSOLUTE BASOPHILS # (AUTO) 0.1 10^3/uL (0.0-0.2); ABSOLUTE EOSINOPHILS # (AUTO) 0.1 10^3/uL (0.0-0.6); ABSOLUTE LYMPHOCYTES (AUTO) 2.1 10^3/uL (0.5-4.7); ABSOLUTE MONOCYTES (AUTO) 0.6 10^3/uL (0.1-1.4); ABSOLUTE NEUT (AUTO) 5.2 10^3/uL (1.7-8.2); BASOPHILS % (AUTO) 0.9 % (0-2); EOSINOPHILS % (AUTO) 1.5 % (0-6); HEMATOCRIT 39.9 % (37.9-51.0); HEMOGLOBIN 13.9 g/dL (13.5-17.0); LYMPHOCYTES % (AUTO) 25.7 % (13-45); MEAN CORPUSCULAR HEMOGLOBIN 30.4 pg (27.0-33.4); MEAN CORPUSCULAR HGB CONC 34.8 g/dL (32.0-36.0); MEAN CORPUSCULAR VOLUME 87 fl (80-97); MONOCYTES % (AUTO) 7.3 % (3-13); PLATELET COUNT 244 10^3/uL (150-450); RED BLOOD COUNT 4.59 10^6/uL (4.35-5.55); RED CELL DISTRIBUTION WIDTH 13.2 % (11.5-14.0); SEGMENTED NEUTROPHILS % (AUTO) 64.6 % (42-78); TOTAL CELLS COUNTED % (AUTO) 100 %
[2018-04-30 16:14] LABS: ALANINE AMINOTRANSFERASE 28 U/L (21-72); ALBUMIN 4.7 g/dL (3.5-5.0); ALKALINE PHOSPHATASE 69 U/L (38-126); ANION GAP 11 (5-19); ASPARTATE AMINO TRANSFERASE 26 U/L (17-59); BILIRUBIN,DIRECT 0.2 mg/dL (0.0-0.4); BILIRUBIN,TOTAL 0.9 mg/dL (0.2-1.3); BLOOD UREA NITROGEN 10 mg/dL (7-20); CALCIUM 10.3 mg/dL (8.4-10.2); CARBON DIOXIDE 29 mmol/L (22-30); CHLORIDE 100 mmol/L (98-107); GLUCOSE 86 mg/dL (75-110); LIPASE 309.9 U/L (23-300); POTASSIUM 3.9 mmol/L (3.6-5.0); SODIUM 139.7 mmol/L (137-145); TOTAL PROTEIN 7.4 g/dL (6.3-8.2)
[2018-04-30 16:50] LABS: APPEARANCE,URINE CLEAR; BILIRUBIN,URINE NEGATIVE (NEGATIVE); COLOR,URINE STRAW; GLUCOSE, URINE NEGATIVE (NEGATIVE); KETONES,URINE NEGATIVE (NEGATIVE); LEUKOCYTE ESTERASE,URINE NEGATIVE (NEGATIVE); NITRITE,URINE NEGATIVE (NEGATIVE); PROTEIN,URINE NEGATIVE (NEGATIVE); URINE SPECIFIC GRAVITY 1.004; UROBILINOGEN,URINE NEGATIVE mg/dL (<2.0)
[2018-04-30 17:07] LABS: URINE AMPHETAMINES SCREEN NEGATIVE; URINE BARBITURATES SCREEN NEGATIVE; URINE BENZODIAZEPINES SCREEN NEGATIVE; URINE COCAINE SCREEN NEGATIVE; URINE MARIJUANA (THC) SCREEN NEGATIVE; URINE METHADONE SCREEN NEGATIVE; URINE PHENCYCLIDINE SCREEN NEGATIVE
[2018-04-30 17:31] VITALS: BP 128/89
[2018-04-30] MEDS ORDERED: ONDANSETRON ODT 4 MG TAB (6 TAB/ER DISP) PO PRN (17:34)
--- NOTE | 2018-04-30 21:16 | ER Document Report ---
Entered by RAUL GIFFORD SCRIBE 04/30/18 1548 Acting as scribe for:DEYSI STERN DO ED Dizziness/Weakness - General Chief Complaint: Near Syncope Stated Complaint: DIFFICULTY BREATHING Time Seen by Provider: 04/30/18 15:05 Mode of Arrival: Ambulatory Information source: Patient Notes: Patient is a 27 year old male presenting to the emergency department complaining of weakness. Patient states he was in [facility] cafeteria when he proceeded to have a near syncopal episode. Patient states "I think it's diabetes" and reports having his blood sugar run betweens the 90s and 140s. Bladimir at bedside states she believes the patient had a recent stroke because his whole body began to shake and he complained of numbness in his bilateral hands. Patient also complains of poor fluid and food intake, nausea and vomiting. Of significance, patient reports a history of crack cocaine, meth, Vicodin, Percocet abuse and alcohol abuse and reports recently being discharge from rehab. He does report a history of alcohol withdrawal. TRAVEL OUTSIDE OF THE [place] IN LAST 30 DAYS: No - Related Data Allergies/Adverse Reactions: latex [Latex] Allergy (Unknown, Verified 04/26/18 15:48) Penicillins Allergy (Verified 04/26/18 15:48) bees Allergy (Uncoded 04/26/18 15:48) Past Medical History - General Information source: Patient - Social History Smoking Status: Smoker,Current Status Unk Drug Abuse: Cocaine, Methamphetamine, Prescription drugs Family History: Reviewed & Not Pertinent, Arthritis, CVA, DM, Hypertension, Malignancy Patient has suicidal ideation: No Patient has homicidal ideation: No Neurological Medical History: Reports: Hx Seizures - Patient reports 3 seizures, but thinks they were drug-induced. GI Medical History: Reports: Hx Pancreatitis - alcohol related Musculoskeletal Medical History: Reports Hx Arthritis - hands Psychiatric Medical History: Reports: Hx Attention Deficit Hyperactivity Disorder, Hx Bipolar Disorder, Hx Depression - manic, Hx Schizophrenia Past Surgical History: Reports: Hx Oral Surgery - Immunizations Immunizations up to date: Yes Hx Diphtheria, Pertussis, Tetanus Vaccination: Yes - 2012 Review of Systems - Review of Systems Constitutional: No symptoms reported EENT: No symptoms reported Cardiovascular: See HPI, Syncope - near syncope Respiratory: No symptoms reported Gastrointestinal: See HPI, Nausea, Poor appetite, Poor fluid intake Genitourinary: No symptoms reported Male Genitourinary: No symptoms reported Musculoskeletal: No symptoms reported Skin: No symptoms reported Hematologic/Lymphatic: No symptoms reported Neurological/Psychological: No symptoms reported Physical Exam - Vital signs Vitals: Temp Pulse Resp BP Pulse Ox 98.6 F 104 H 16 142/98 H 100 04/30/18 15:03 04/30/18 15:03 04/30/18 15:03 04/30/18 15:03 04/30/18 15:03 - Notes Notes: GENERAL: Alert, interacts well. No acute distress. HEAD: Normocephalic, atraumatic. EYES: Pupils equal, round, and reactive to light. Extraocular movements intact. ENT: Oral mucosa dry, tongue midline. NECK: Full range of motion. Supple. Trachea midline. LUNGS: Clear to auscultation bilaterally, no wheezes, rales, or rhonchi. No respiratory distress. HEART: Tachycardic. No murmurs, gallops, or rubs. ABDOMEN: Soft, non-tender. Non-distended. Bowel sounds present in all 4 quadrants. No guarding, rigidity, or rebound. EXTREMITIES: Moves all 4 extremities spontaneously. NEUROLOGICAL: Alert and oriented x3. Normal speech. PSYCH: Normal affect, normal mood. SKIN: Warm, dry, normal turgor. No rashes or lesions noted. Course - Re-evaluation Re-evalutation: 04/30/18 21:16 Patient feels better after fluids. He is no longer tachycardic or experiencing lightheadedness. He is not orthostatic. Blood work within normal limits. Urine within normal limits. Patient feels better would like to go home. Stable for discharge. Will be given nausea medication so is able to tolerate more fluids at home. - Vital Signs Vital signs: Temp Pulse Resp BP Pulse Ox 97.8 F 87 16 128/89 H 100 04/30/18 17:26 04/30/18 17:26 04/30/18 17:26 04/30/18 17:32 04/30/18 17:26 - Laboratory Result Diagrams: 04/30/18 15:28 04/30/18 15:28 Laboratory results interpreted by me: 04/30/18 15:28 Calcium 10.3 H Lipase 309.9 H - Diagnostic Test Radiology reviewed: Reports reviewed Discharge - Discharge Clinical Impression: Dehydration, Near syncope Condition: Stable Disposition: HOME, SELF-CARE Instructions: Dehydration ([facility]), Near Syncopal Episode ([facility]) Scribe Attestation: 04/30/18 21:16 I personally performed the services described in the documentation, reviewed and edited the documentation which was dictated to the scribe in my presence, and it accurately records my words and actions. I personally performed the services described in the documentation, reviewed and edited the documentation which was dictated to the scribe in my presence, and it accurately records my words and actions.
--- NOTE | 2018-04-30 23:30 | EKG REPORT ---
SEVERITY:- BORDERLINE ECG - SINUS RHYTHM BORDERLINE PROLONGED QT INTERVAL : Confirmed by: Miquel Rios 30-Apr-2018 23:29:36
== END 2018-04-30 17:46 | disposition home or self-care (01) ==
LOC: ER 15:00
DX: R55 Syncope and collapse (principal); E86.0 Dehydration; R53.1 Weakness; R11.2 Nausea with vomiting, unspecified; R00.0 Tachycardia, unspecified; F14.10 Cocaine abuse, uncomplicated; F15.10 Other stimulant abuse, uncomplicated; R63.0 Anorexia; Z88.0 Allergy status to penicillin; Z91.030 Bee allergy status
CPT/HCPCS: 93005; 99284; 96360; 96361; 36415; 82962; 80307 ×2; 83690; 85025; 80053; 81001; 84484; 71045; 93010; J7030; A9270

== ENCOUNTER 2018-05-05 20:09 | Emergency (ER) | payer MEDICARE ==
--- NOTE | 2018-05-05 20:56 | ER Document Report ---
ED Medical Screen (RME) - General Chief Complaint: Suicidal Ideation Stated Complaint: SUICIDAL THOUGHTS Time Seen by Provider: 05/05/18 20:53 Notes: Brout into ED via [facility] for SI, [facility] has paperwork. I have greeted and performed a rapid initial assessment of this patient. A comprehensive ED assessment and evaluation of the patient, analysis of test results and completion of the medical decision making process will be conducted by additional ED providers. TRAVEL OUTSIDE OF THE [place] IN LAST 30 DAYS: No - Related Data Allergies/Adverse Reactions: latex [Latex] Allergy (Unknown, Verified 04/26/18 15:48) Penicillins Allergy (Verified 04/26/18 15:48) bees Allergy (Uncoded 04/26/18 15:48) Past Medical History - Social History Family history: Reviewed & Not Pertinent Neurological Medical History: Reports: Hx Seizures - Patient reports 3 seizures, but thinks they were drug-induced. 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 Musculoskeltal Medical History: Reports Hx Arthritis - hands Psychiatric Medical History: Reports: Hx Attention Deficit Hyperactivity Disorder, Hx Bipolar Disorder, Hx Depression - manic, Hx Schizophrenia Past Surgical History: Reports: Hx Oral Surgery - Immunizations Immunizations up to date: Yes Hx Diphtheria, Pertussis, Tetanus Vaccination: Yes - 2012
--- NOTE | 2018-05-05 21:39 | ER Document Report ---
ED General - General Chief Complaint: Suicidal Ideation Stated Complaint: SUICIDAL THOUGHTS Time Seen by Provider: 05/05/18 20:53 Notes: Patient is a 27-year-old male without with past medical history of polysubstance abuse, frequent visits to the emergency department for suicidal ideation, history of homicidal ideation who presents with mobile crisis on involuntary commitment paperwork after stating he was going to kill himself. The patient apparently made the statement after the police were called out to a home where he was residing with his "fianc". Police were called for a "domestic dispute". After he was being escorted off the premises he did make a threat that he was going to jump off a bridge and kill himself. Apparently mobile crisis was initially going to allow the patient to remain here on a voluntary basis but then he apparently eloped from the lobby and an IVC was placed. Patient is complaining of a dull, throbbing and constant pain to his left hand apparently punched a wall. Has not trying to improve this pain. Nothing worsens his pain. TRAVEL OUTSIDE OF THE [place] IN LAST 30 DAYS: No - Related Data Allergies/Adverse Reactions: latex [Latex] Allergy (Unknown, Verified 04/26/18 15:48) Penicillins Allergy (Verified 04/26/18 15:48) bees Allergy (Uncoded 04/26/18 15:48) Past Medical History - General Information source: Patient - Social History Smoking Status: Current Every Day Smoker Frequency of alcohol use: Occasional Drug Abuse: Cocaine, Methamphetamine Lives with: Homeless Family History: Reviewed & Not Pertinent, Arthritis, CVA, DM, Hypertension, Malignancy Neurological Medical History: Reports: Hx Seizures - Patient reports 3 seizures, but thinks they were drug-induced. 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 Musculoskeletal Medical History: Reports Hx Arthritis - hands Psychiatric Medical History: Reports: Hx Attention Deficit Hyperactivity Disorder, Hx Bipolar Disorder, Hx Depression - manic, Hx Schizophrenia Past Surgical History: Reports: Hx Oral Surgery - Immunizations Immunizations up to date: Yes Hx Diphtheria, Pertussis, Tetanus Vaccination: Yes - 2012 Review of Systems - Review of Systems Notes: Constitutional: Negative for fever. HENT: Negative for sore throat. Eyes: Negative for visual changes. Cardiovascular: Negative for chest pain. Respiratory: Negative for shortness of breath. Gastrointestinal: Negative for abdominal pain, vomiting or diarrhea. Genitourinary: Negative for dysuria. Musculoskeletal: Positive for left hand pain Skin: Negative for rash. Neurological: Negative for headaches, weakness or numbness. 10 point ROS negative except as marked above and in HPI. Physical Exam - Vital signs Vitals: Temp Pulse Resp BP Pulse Ox 98.5 F 128 H 20 138/94 H 100 05/05/18 20:54 05/05/18 20:54 05/05/18 20:54 05/05/18 20:54 05/05/18 20:54 Interpretation: Hypertensive - Patient no longer tachycardic at time of my assessment, Tachycardic Notes: PHYSICAL EXAMINATION: GENERAL: Well-appearing, well-nourished and in no acute distress. HEAD: Atraumatic, normocephalic. EYES: Pupils equal round and reactive to light, extraocular movements intact, sclera anicteric, conjunctiva are normal. ENT: nares patent, oropharynx clear without exudates. Moist mucous membranes. NECK: Normal range of motion, supple without lymphadenopathy LUNGS: Breath sounds clear to auscultation bilaterally and equal. No wheezes rales or rhonchi. HEART: Regular rate and rhythm without murmurs ABDOMEN: Soft, nontender, normoactive bowel sounds. No guarding, no rebound. No masses appreciated. EXTREMITIES: Normal range of motion, no pitting or edema. No cyanosis. Full flexion and extension of all digits at the DIP, PIP and MCP of the left hand. NEUROLOGICAL: No focal neurological deficits. Moves all extremities spontaneously and on command. PSYCH: Normal mood, normal affect. SKIN: Warm, Dry, normal turgor, skin ecchymosis over the dorsum of the left mid hand Course - Re-evaluation Re-evalutation: 05/05/18 21:38 Patient presents with suicidal ideation with a plan to jump off a bridge. Arrives on IVC by mobile crisis with ANDRÉS. Patient has been seen in the emergency room repeatedly under similar circumstances, has a long-standing history of methamphetamine abuse, depression and suicidal ideation. Per mobile crisis, the patient apparently stated "when [facility] discharges me tomorrow like I know they will I am still going to jump off a bridge" medical screening exam unremarkable with exception of bruising over the third and fourth metacarpal of the left hand as patient apparently punched something. X-ray pending. Medical screening labs are pending. Otherwise cleared for evaluation and disposition by [facility] in the morning. 05/05/18 21:43 Medical screening labs unremarkable. Left hand x-ray is negative for acute fracture. Patient is cleared for evaluation and disposition by [facility] in the morning. - Vital Signs Vital signs: Temp Pulse Resp BP Pulse Ox 98.5 F 128 H 20 138/94 H 100 05/05/18 20:54 05/05/18 20:54 05/05/18 20:54 05/05/18 20:54 05/05/18 20:54 - Laboratory Result Diagrams: 05/05/18 22:50 05/05/18 22:50 Laboratory results interpreted by me: 05/05/18 05/05/18 22:00 22:50 Glucose 131 H Calcium 10.5 H Urine Glucose (UA) >=500 H Urine Ketones TRACE H Urine Urobilinogen 2.0 H Urine Ascorbic Acid 40 H Salicylates < 1.0 L Acetaminophen < 10 L - Diagnostic Test Radiology reviewed: Image reviewed, Reports reviewed Radiology results interpreted by me: 05/06/18 03:16 Left hand x-ray: No acute fracture Discharge - Discharge Clinical Impression: Threatening suicide, Polysubstance abuse
[2018-05-05 22:23] LABS: APPEARANCE,URINE SLIGHTLY-CLOUDY; BILIRUBIN,URINE NEGATIVE (NEGATIVE); COLOR,URINE YELLOW; GLUCOSE, URINE >=500 mg/dL (NEGATIVE); KETONES,URINE TRACE mg/dL (NEGATIVE); LEUKOCYTE ESTERASE,URINE NEGATIVE (NEGATIVE); NITRITE,URINE NEGATIVE (NEGATIVE); PROTEIN,URINE NEGATIVE (NEGATIVE); URINE SPECIFIC GRAVITY 1.028
[2018-05-05 22:36] LABS: URINE AMPHETAMINES SCREEN NEGATIVE; URINE BARBITURATES SCREEN NEGATIVE; URINE BENZODIAZEPINES SCREEN NEGATIVE; URINE COCAINE SCREEN NEGATIVE; URINE MARIJUANA (THC) SCREEN NEGATIVE; URINE METHADONE SCREEN NEGATIVE; URINE PHENCYCLIDINE SCREEN NEGATIVE
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
[2018-05-05 22:58] LABS: ABSOLUTE BASOPHILS # (AUTO) 0.1 10^3/uL (0.0-0.2); ABSOLUTE LYMPHOCYTES (AUTO) 1.8 10^3/uL (0.5-4.7); ABSOLUTE MONOCYTES (AUTO) 0.5 10^3/uL (0.1-1.4); ABSOLUTE NEUT (AUTO) 6.6 10^3/uL (1.7-8.2); BASOPHILS % (AUTO) 0.6 % (0-2); EOSINOPHILS % (AUTO) 0.4 % (0-6); HEMATOCRIT 42.1 % (37.9-51.0); HEMOGLOBIN 14.8 g/dL (13.5-17.0); LYMPHOCYTES % (AUTO) 20.1 % (13-45); MEAN CORPUSCULAR HEMOGLOBIN 30.6 pg (27.0-33.4); MEAN CORPUSCULAR HGB CONC 35.1 g/dL (32.0-36.0); MEAN CORPUSCULAR VOLUME 87 fl (80-97); MONOCYTES % (AUTO) 5.6 % (3-13); PLATELET COUNT 250 10^3/uL (150-450); RED BLOOD COUNT 4.82 10^6/uL (4.35-5.55); RED CELL DISTRIBUTION WIDTH 13.7 % (11.5-14.0); SEGMENTED NEUTROPHILS % (AUTO) 73.3 % (42-78); TOTAL CELLS COUNTED % (AUTO) 100 %
[2018-05-05 23:23] LABS: ALANINE AMINOTRANSFERASE 27 U/L (21-72); ALBUMIN 4.9 g/dL (3.5-5.0); ALKALINE PHOSPHATASE 65 U/L (38-126); ANION GAP 12 (5-19); ASPARTATE AMINO TRANSFERASE 25 U/L (17-59); BILIRUBIN,DIRECT 0.1 mg/dL (0.0-0.4); BILIRUBIN,TOTAL 0.8 mg/dL (0.2-1.3); BLOOD UREA NITROGEN 12 mg/dL (7-20); CALCIUM 10.5 mg/dL (8.4-10.2); CARBON DIOXIDE 27 mmol/L (22-30); CHLORIDE 100 mmol/L (98-107); GLUCOSE 131 mg/dL (75-110); POTASSIUM 4.1 mmol/L (3.6-5.0); SODIUM 139.3 mmol/L (137-145); TOTAL PROTEIN 8.1 g/dL (6.3-8.2)
[2018-05-05 23:28] LABS: ACETAMINOPHEN < 10 ug/mL (10-30); ALCOHOL < 10 mg/dL (NONE DETECTED); SALICYLATE < 1.0 mg/dL (2.0-20.0)
[2018-05-06] MEDS ORDERED: TRAZODONE HCL 50 MG TABLET PO ONE (00:53)
--- NOTE | 2018-05-06 10:09 | ER Document Report ---
Doctor's Note Notes: 05/06/18 10:08 Rounds: Chart reviewed and patient interviewed. Patient being evaluated for suicidal thoughts. History of depression. Urine says he still feels suicidal today. Only other significant past medical history as the patient has a history of chronic, recurring pancreatitis. Patient's lipase level is 143. Lab studies were all essentially normal. Vital signs are all essentially normal. Patient appears to be medically stable for transfer or discharge. Angela Saha MD
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
[2018-05-06 14:37] VITALS: BP 112/58
--- NOTE | 2018-05-06 21:52 | EKG REPORT ---
SEVERITY:- NORMAL ECG - SINUS RHYTHM : Confirmed by: Marina Barahona MD 06-May-2018 21:52:13
== END 2018-05-06 14:37 | disposition home or self-care (01) ==
LOC: ER 20:09
DX: R45.851 Suicidal ideations (principal); Z91.040 Latex allergy status; Z88.0 Allergy status to penicillin; Z91.030 Bee allergy status; Z59.0 Homelessness; F17.200 Nicotine dependence, unspecified, uncomplicated; F15.10 Other stimulant abuse, uncomplicated; S60.222A Contusion of left hand, initial encounter; W22.8XXA Striking against or struck by other objects, initial encounter; Z63.0 Problems in relationship with spouse or partner; F14.99 Cocaine use, unspecified with unspecified cocaine-induced disorder; F60.3 Borderline personality disorder
CPT/HCPCS: 93005; 99285; 36415; 80307 ×4; 83690; 85025; 80053; 81001; 73130; 93010; A9270

== ENCOUNTER 2018-06-13 03:04 | Emergency (ER) | payer MEDICARE ==
[2018-06-13 03:13] VITALS: BP 131/86
[2018-06-13] MEDS ORDERED: IBUPROFEN 800 MG TABLET PO ONE (03:48)
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
== END 2018-06-13 05:10 | disposition home or self-care (01) ==
LOC: ER 03:04
DX: M79.642 Pain in left hand (principal); F17.200 Nicotine dependence, unspecified, uncomplicated
CPT/HCPCS: 99283; 73130; A9270

== ENCOUNTER 2018-06-18 17:03 | Emergency (ER) | payer MEDICARE ==
[2018-06-18 17:23] VITALS: BP 104/68
--- NOTE | 2018-06-18 18:22 | ER Document Report ---
HPI - HPI Patient complains to provider of: Patient states he feels like he is dehydrated Time Seen by Provider: 06/18/18 18:04 Onset: Just prior to arrival Onset/Duration: Better Quality of pain: Achy Severity: Mild Pain Level: 2 Associated Symptoms: Other - States he was dizzy before he came in here he is not dizzy now. He states he feels like he is dehydrated. Exacerbated by: Denies Relieved by: Denies Similar symptoms previously: Yes Recently seen / treated by doctor: Yes - ROS ROS below otherwise negative: Yes - CONSTITUTIONAL Constitutional: DENIES: Fever, Chills - EENT EENT: DENIES: Sore Throat, Ear Pain, Nasal Drainage-Clear, Nasal Drainage- Purulent, Congestion, Eye problems - NEURO Neurology: REPORTS: Dizzinesss / Vertigo. DENIES: Headache, Weakness, Vision blurred - CARDIOVASCULAR Cardiovascular: DENIES: Chest pain - RESPIRATORY Respiratory: DENIES: Trouble Breathing, Coughing - GASTROINTESTINAL Gastrointestinal: DENIES: Abdominal Pain, Nausea, Patient vomiting, Diarrhea, Constipation, Black / Bloody Stools - URINARY Urinary: DENIES: Dysuria, Urgency, Frequency - MUSCULOSKELETAL Musculoskeletal: DENIES: Extremity pain, Back Pain, Neck Pain, Swelling - DERM Skin Color: Normal Skin Problems: None Past Medical History - General Information source: Patient - Social History Smoking Status: Current Every Day Smoker Cigarette use (# per day): Yes - Pack a day Smoking Education Provided: Yes - Minutes Frequency of alcohol use: None Drug Abuse: Marijuana Family History: Reviewed & Not Pertinent, Arthritis, CVA, DM, Hypertension, Malignancy Patient has suicidal ideation: No Patient has homicidal ideation: No - Past Medical History Cardiac Medical History: Reports: None Pulmonary Medical History: Reports: None EENT Medical History: Reports: None Neurological Medical History: Reports: Hx Seizures - Patient reports 3 seizures, but thinks they were drug-induced. Endocrine Medical History: Reports: None Renal/ Medical History: Reports: None Malignancy Medical History: Reports None GI Medical History: Reports: Hx Pancreatitis - alcohol related Musculoskeletal Medical History: Reports Hx Arthritis - hands Skin Medical History: Reports None Psychiatric Medical History: Reports: Hx Attention Deficit Hyperactivity Disorder, Hx Bipolar Disorder, Hx Depression - manic, Hx Schizophrenia Traumatic Medical History: Reports: None Infectious Medical History: Reports: None Past Surgical History: Reports: Hx Oral Surgery - Immunizations Immunizations up to date: Yes Hx Diphtheria, Pertussis, Tetanus Vaccination: Yes - 2013 [employer] Provider Document - CONSTITUTIONAL Agree With Documented VS: Yes Exam Limitations: No Limitations General Appearance: WD/WN, No Apparent Distress - INFECTION CONTROL TRAVEL OUTSIDE OF THE [place] IN LAST 30 DAYS: No - HEENT HEENT: Atraumatic, Normal ENT Exam, Normocephalic, PERRLA - NECK Neck: Normal Inspection, Supple, Thyroid Normal - RESPIRATORY Respiratory: Breath Sounds Normal, No Respiratory Distress, Chest Non-Tender - CARDIOVASCULAR Cardiovascular: Regular Rate, Regular Rhythm, No Murmur - GI/ABDOMEN Gastrointestinal: Abdomen Soft, Abdomen Non-Tender, No Organomegaly, Normal Bowel Sounds - BACK Back: Normal Inspection - MUSCULOSKELETAL/EXTREMETIES Musculoskeletal/Extremeties: MAEW, FROM, Non-Tender - NEURO Level of Consciousness: Awake, Alert, Appropriate - DERM Integumentary: Warm, Dry, No Rash Course - Re-evaluation Re-evalutation: 06/18/18 18:21 When I told patient and needed to get a urine to check for dehydration, he stated he could not stay he needed to go back to his mental health facility he could not give me a urine. He was provided with Gatorade and water. He drank a little bit of a Gatorade and states he needed to go right now. I did inform patient he should be tested for the urine to ensure that he was not dehydrated he refused he states he needs to go right now. Patient did sign AGAINST MEDICAL ADVICE. He did leave the facility. - Vital Signs Vital signs: Temp Pulse Resp BP Pulse Ox 98.0 F 94 18 104/68 97 06/18/18 17:21 06/18/18 17:21 06/18/18 17:21 06/18/18 17:21 06/18/18 17:21 Discharge - Discharge Clinical Impression: Dizzy Condition: Stable Disposition: AGAINST MEDICAL ADVICE
== END 2018-06-18 18:20 | disposition left against medical advice (07) ==
LOC: ER 17:03
DX: R42 Dizziness and giddiness (principal); F12.10 Cannabis abuse, uncomplicated; F17.210 Nicotine dependence, cigarettes, uncomplicated; Z71.6 Tobacco abuse counseling; Z53.29 Procedure and treatment not carried out because of patient's decision for other reasons
CPT/HCPCS: 99283

== ENCOUNTER 2018-06-26 12:55 | Emergency (ER) | payer MEDICARE ==
[2018-06-26 13:08] VITALS: BP 113/72
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
== END 2018-06-26 14:17 | disposition home or self-care (01) ==
LOC: ER 12:55
DX: K62.89 Other specified diseases of anus and rectum (principal); K62.5 Hemorrhage of anus and rectum; K64.4 Residual hemorrhoidal skin tags; F17.200 Nicotine dependence, unspecified, uncomplicated; F12.10 Cannabis abuse, uncomplicated; Z91.040 Latex allergy status; Z88.0 Allergy status to penicillin; Z91.030 Bee allergy status
CPT/HCPCS: 99283

== ENCOUNTER 2018-08-25 02:21 | Emergency (ER) | payer MEDICARE ==
[2018-08-25] MEDS ORDERED: LIDOCAINE 2% JELLY 30 ML TUBE TOP ONE (07:24)
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
[2018-08-25 07:49] VITALS: BP 113/68
== END 2018-08-25 08:10 | disposition home or self-care (01) ==
LOC: ER 02:21
DX: K62.89 Other specified diseases of anus and rectum (principal); K62.5 Hemorrhage of anus and rectum
CPT/HCPCS: 99283

== ENCOUNTER 2018-09-02 01:51 | Emergency (ER) | payer MEDICARE ==
[2018-09-02 04:36] LABS: ABSOLUTE BASOPHILS # (AUTO) 0.1 10^3/uL (0.0-0.2); ABSOLUTE EOSINOPHILS # (AUTO) 0.2 10^3/uL (0.0-0.6); ABSOLUTE LYMPHOCYTES (AUTO) 2.8 10^3/uL (0.5-4.7); ABSOLUTE MONOCYTES (AUTO) 0.7 10^3/uL (0.1-1.4); BASOPHILS % (AUTO) 0.8 % (0-2); EOSINOPHILS % (AUTO) 2.3 % (0-6); HEMATOCRIT 39.9 % (37.9-51.0); HEMOGLOBIN 13.3 g/dL (13.5-17.0); LYMPHOCYTES % (AUTO) 36.3 % (13-45); MEAN CORPUSCULAR HEMOGLOBIN 29.8 pg (27.0-33.4); MEAN CORPUSCULAR HGB CONC 33.4 g/dL (32.0-36.0); MEAN CORPUSCULAR VOLUME 89 fl (80-97); MONOCYTES % (AUTO) 9.1 % (3-13); PLATELET COUNT 225 10^3/uL (150-450); RED BLOOD COUNT 4.48 10^6/uL (4.35-5.55); RED CELL DISTRIBUTION WIDTH 13.4 % (11.5-14.0); SEGMENTED NEUTROPHILS % (AUTO) 51.5 % (42-78); TOTAL CELLS COUNTED % (AUTO) 100 %; WHITE BLOOD COUNT 7.7 10^3/uL (4.0-10.5)
[2018-09-02 04:49] LABS: ALANINE AMINOTRANSFERASE 39 U/L (21-72); ALBUMIN 4.4 g/dL (3.5-5.0); ALKALINE PHOSPHATASE 58 U/L (38-126); ANION GAP 10 (5-19); ASPARTATE AMINO TRANSFERASE 33 U/L (17-59); BILIRUBIN,DIRECT 0.2 mg/dL (0.0-0.4); BILIRUBIN,TOTAL 0.8 mg/dL (0.2-1.3); BLOOD UREA NITROGEN 15 mg/dL (7-20); CALCIUM 9.8 mg/dL (8.4-10.2); CARBON DIOXIDE 26 mmol/L (22-30); CHLORIDE 105 mmol/L (98-107); GLUCOSE 87 mg/dL (75-110); POTASSIUM 4.3 mmol/L (3.6-5.0)
[2018-09-02 06:00] LABS: APPEARANCE,URINE CLEAR; BILIRUBIN,URINE NEGATIVE (NEGATIVE); COLOR,URINE YELLOW; GLUCOSE, URINE NEGATIVE (NEGATIVE); KETONES,URINE NEGATIVE (NEGATIVE); LEUKOCYTE ESTERASE,URINE NEGATIVE (NEGATIVE); NITRITE,URINE NEGATIVE (NEGATIVE); PROTEIN,URINE NEGATIVE (NEGATIVE); URINE SPECIFIC GRAVITY 1.021; UROBILINOGEN,URINE NEGATIVE mg/dL (<2.0)
--- NOTE | 2018-09-02 06:23 | ER Document Report ---
ED GI/ - General Chief Complaint: Abdominal Pain Stated Complaint: ABDOMINAL PAIN Time Seen by Provider: 09/02/18 06:06 Notes: 28-year-old male who came into the ER complaining of abdominal pain. Patient stated he was having "pancreatitis pain "the patient stated his pain was severe he has had this in the past on and off. He states his stools have been light in color but no black bloody or tarry stools. Occasional nausea but no vomiting. Patient waited overnight here. The patient has no chest pain or shortness of breath. Denies alcohol use TRAVEL OUTSIDE OF THE [place] IN LAST 30 DAYS: No - Related Data Allergies/Adverse Reactions: latex [Latex] Allergy (Unknown, Verified 06/26/18 12:57) Penicillins Allergy (Verified 06/26/18 12:57) bees Allergy (Uncoded 06/26/18 12:57) Past Medical History - Social History Smoking Status: Unknown if Ever Smoked Family History: Reviewed & Not Pertinent, Arthritis, CVA, DM, Hypertension, Malignancy Patient has suicidal ideation: No Patient has homicidal ideation: No Neurological Medical History: Reports: Hx Seizures - Patient reports 3 seizures, but thinks they were drug-induced. 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 Musculoskeletal Medical History: Reports Hx Arthritis - hands Psychiatric Medical History: Reports: Hx Attention Deficit Hyperactivity Disorder, Hx Bipolar Disorder, Hx Depression - manic, Hx Schizophrenia Past Surgical History: Reports: Hx Oral Surgery - Immunizations Immunizations up to date: Yes Hx Diphtheria, Pertussis, Tetanus Vaccination: Yes - 2012 Review of Systems - Review of Systems Constitutional: denies: Chills, Fever Cardiovascular: denies: Chest pain Respiratory: denies: Hurts to breathe, Short of breath Gastrointestinal: Abdominal pain, Nausea, Other - Light-colored stools. denies: Diarrhea Neurological/Psychological: denies: Headaches -: Yes All other systems reviewed and negative Physical Exam - Vital signs Vitals: Temp Pulse Resp BP Pulse Ox 98.0 F 86 16 117/76 98 09/02/18 02:46 09/02/18 02:46 09/02/18 02:46 09/02/18 02:46 09/02/18 02:46 - Notes Notes: GENERAL_APPEARANCE: well_nourished, alert, cooperative, no_acute_distress, no_obvious_discomfort. VITALS: reviewed, see vital signs table. HEAD: no_swelling\\tenderness on the head. EYES: PERRL, EOMI, conjunctiva_clear. NOSE: no_nasal_discharge. MOUTH: (-)decreased moisture. THROAT: no_tonsilar_inflammation, no_airway_obstruction. no_lymphadenopathy NECK: supple, no_neck_tenderness, (-)thyromegaly. BACK: no_back_tenderness. CHEST_WALL: no_chest_tenderness. LUNGS: no_wheezing, no_rales, no_rhonchi, (-)accessory muscle use, good air e xchange bilateral. HEART: normal_rate, normal_rhythm, normal_S1, normal_S2, (-)S3, (-)S4, no_murmur, no_rub. ABDOMEN: normal_BS, soft, no_abd_tenderness, (-)guarding, (-)rebound, no_organomegaly, no_abd_masses. EXTREMITIES: good pulses in all_extremities, no_swelling\\tenderness in the extremities, no_edema. SKIN: warm, dry, good_color, no_rash. MENTAL_STATUS: speech_clear, oriented_X_3, normal_affect, responds_appropriately to questions. Course - Re-evaluation Re-evalutation: 09/02/18 06:21 I arrived in her room to find the patient with 2 large bags of [employer] with his significant other eating. Patient had a is already on his third sandwich this morning. Girlfriend is eating he states he feels fine now. I assessed his abdomen and it is soft and supple no rebound or guarding looking over the lab work that was ordered in triage last night there is no acute abnormalities. At this time I do not think any additional imaging is needed he is obviously eating very well and has a soft benign abdomen with no laboratory abnormalities that would necessitate any further imaging. I spoke with the patient about diet control avoid any alcohol. Following up with his family doctor possibly GI referral if this keeps bothering him. But at this time I see no acute emergency medical condition requiring further stabilization or diagnostic testing. - Vital Signs Vital signs: Temp Pulse Resp BP Pulse Ox 98.0 F 86 16 117/76 98 09/02/18 02:46 09/02/18 02:46 09/02/18 02:46 09/02/18 02:46 09/02/18 02:46 - Laboratory Result Diagrams: 09/02/18 04:00 09/02/18 04:00 Laboratory results interpreted by me: 09/02/18 04:00 Hgb 13.3 L Discharge - Discharge Clinical Impression: Abdominal pain Qualifiers: Abdominal location: epigastric Qualified Code(s): R10.13 - Epigastric pain Condition: Good Disposition: HOME, SELF-CARE Instructions: Abdominal Pain ([facility]) Additional Instructions: Please follow-up with your family doctor you may need GI referral
[2018-09-02 06:31] VITALS: BP 116/65
== END 2018-09-02 06:39 | disposition home or self-care (01) ==
LOC: ER 01:51
DX: R10.13 Epigastric pain (principal); R11.0 Nausea; Z91.040 Latex allergy status; Z88.0 Allergy status to penicillin
CPT/HCPCS: 36415; 80053; 81001; 83690; 85025; 99284

== ENCOUNTER 2018-09-08 23:12 | Emergency (ER) | payer MEDICARE ==
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
[2018-09-09 00:23] LABS: APPEARANCE,URINE CLEAR; BILIRUBIN,URINE NEGATIVE (NEGATIVE); COLOR,URINE YELLOW; GLUCOSE, URINE NEGATIVE (NEGATIVE); KETONES,URINE NEGATIVE (NEGATIVE); LEUKOCYTE ESTERASE,URINE NEGATIVE (NEGATIVE); NITRITE,URINE NEGATIVE (NEGATIVE); PROTEIN,URINE NEGATIVE (NEGATIVE); URINE SPECIFIC GRAVITY 1.019
[2018-09-09 00:42] LABS: URINE AMPHETAMINES SCREEN NEGATIVE; URINE BARBITURATES SCREEN NEGATIVE; URINE BENZODIAZEPINES SCREEN NEGATIVE; URINE COCAINE SCREEN NEGATIVE; URINE MARIJUANA (THC) SCREEN NEGATIVE; URINE METHADONE SCREEN NEGATIVE; URINE PHENCYCLIDINE SCREEN NEGATIVE
[2018-09-09 00:50] LABS: ABSOLUTE BASOPHILS # (AUTO) 0.1 10^3/uL (0.0-0.2); ABSOLUTE EOSINOPHILS # (AUTO) 0.2 10^3/uL (0.0-0.6); ABSOLUTE MONOCYTES (AUTO) 0.7 10^3/uL (0.1-1.4); ABSOLUTE NEUT (AUTO) 4.5 10^3/uL (1.7-8.2); BASOPHILS % (AUTO) 1.5 % (0-2); EOSINOPHILS % (AUTO) 2.5 % (0-6); HEMATOCRIT 41.2 % (37.9-51.0); HEMOGLOBIN 14.2 g/dL (13.5-17.0); LYMPHOCYTES % (AUTO) 35.6 % (13-45); MEAN CORPUSCULAR HEMOGLOBIN 30.2 pg (27.0-33.4); MEAN CORPUSCULAR HGB CONC 34.5 g/dL (32.0-36.0); MEAN CORPUSCULAR VOLUME 87 fl (80-97); MONOCYTES % (AUTO) 8.1 % (3-13); PLATELET COUNT 243 10^3/uL (150-450); RED BLOOD COUNT 4.72 10^6/uL (4.35-5.55); RED CELL DISTRIBUTION WIDTH 13.4 % (11.5-14.0); SEGMENTED NEUTROPHILS % (AUTO) 52.3 % (42-78); TOTAL CELLS COUNTED % (AUTO) 100 %; WHITE BLOOD COUNT 8.6 10^3/uL (4.0-10.5)
[2018-09-09 01:06] LABS: ALANINE AMINOTRANSFERASE 32 U/L (21-72); ALBUMIN 4.9 g/dL (3.5-5.0); ALKALINE PHOSPHATASE 65 U/L (38-126); ANION GAP 9 (5-19); ASPARTATE AMINO TRANSFERASE 28 U/L (17-59); BILIRUBIN,DIRECT 0.3 mg/dL (0.0-0.4); BILIRUBIN,TOTAL 0.7 mg/dL (0.2-1.3); BLOOD UREA NITROGEN 16 mg/dL (7-20); CALCIUM 10.2 mg/dL (8.4-10.2); CARBON DIOXIDE 29 mmol/L (22-30); CHLORIDE 103 mmol/L (98-107); GLUCOSE 101 mg/dL (75-110); POTASSIUM 4.2 mmol/L (3.6-5.0); TOTAL PROTEIN 7.9 g/dL (6.3-8.2)
[2018-09-09 01:10] LABS: ACETAMINOPHEN < 10 ug/mL (10-30); ALCOHOL < 10 mg/dL (NONE DETECTED); SALICYLATE < 1.0 mg/dL (2.0-20.0)
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
[2018-09-09 11:14] VITALS: BP 142/88
--- NOTE | 2018-09-09 17:36 | EKG REPORT ---
SEVERITY:- NORMAL ECG - SINUS RHYTHM : Confirmed by: Marina Barahona MD 09-Sep-2018 15:04:57
== END 2018-09-09 11:57 ==
LOC: ER 23:12
DX: R45.851 Suicidal ideations (principal); F17.210 Nicotine dependence, cigarettes, uncomplicated; Z91.040 Latex allergy status; Z88.0 Allergy status to penicillin; Z91.030 Bee allergy status
CPT/HCPCS: 36415; 80053; 80307; 81001; 85025; 93005; 93010; 99285

== ENCOUNTER 2018-11-27 18:36 | Emergency (ER) | payer MEDICARE, OTHER ==
[2018-11-27 18:47] VITALS: BP 134/99
[2018-11-27] MEDS ORDERED: IBUPROFEN 800 MG TABLET PO ONE (19:23)
--- NOTE | 2018-11-27 19:25 | ER Document Report ---
ED Oral Problem - General Chief Complaint: Toothache Stated Complaint: TOOTHACHE Time Seen by Provider: 11/27/18 19:19 Mode of Arrival: Ambulatory Information source: Patient Notes: 28-year-old male presented to ED for complaint of back pain he states is his chronic pain is worse. He states he has 6 teeth that need to be repaired. He states he has a dental appointment in January they have been hurting for about a week or 2. He states his left knee has been hurting about a week. He states he might of started out. He is alert oriented respirations regular and unlabored walking with a even steady gait. He states he is not taking any medication for his pain is just hot baths. TRAVEL OUTSIDE OF THE [place] IN LAST 30 DAYS: No - HPI Patient complains to provider of: Toothache, Other - Low back pain Quality of pain: Sharp Severity: Moderate Pain Level: 3 Associated symptoms: Toothache, Other - Low back pain Worsened by: Cold Relieved by: Nothing Similar symptoms previously: Yes Recently seen / treated by doctor/dentist: Yes - Related Data Allergies/Adverse Reactions: latex [Latex] Allergy (Unknown, Verified 06/26/18 12:57) Penicillins Allergy (Verified 06/26/18 12:57) bees Allergy (Uncoded 06/26/18 12:57) Past Medical History - General Information source: Patient - Social History Smoking Status: Current Every Day Smoker Cigarette use (# per day): Yes - Half pack a day Smoking Education Provided: Yes - 4 minutes Frequency of alcohol use: None Drug Abuse: None Lives with: Family Family History: Reviewed & Not Pertinent, Arthritis, CVA, DM, Hypertension, Malignancy - Past Medical History Cardiac Medical History: Reports: None Pulmonary Medical History: Reports: None EENT Medical History: Reports: None Neurological Medical History: Reports: Hx Seizures - Patient reports 3 seizures, but thinks they were drug-induced. Endocrine Medical History: Reports: None Renal/ Medical History: Reports: None Malignancy Medical History: Reports None GI Medical History: Reports: Hx Pancreatitis - alcohol related Musculoskeletal Medical History: Reports Hx Arthritis - hands, Reports Hx Musculoskeletal Deformity Skin Medical History: Reports None Psychiatric Medical History: Reports: Hx Attention Deficit Hyperactivity D isorder, Hx Bipolar Disorder, Hx Depression - manic, Hx Schizophrenia Traumatic Medical History: Reports: None Infectious Medical History: Reports: None Past Surgical History: Reports: Hx Oral Surgery - Immunizations Immunizations up to date: Yes Hx Diphtheria, Pertussis, Tetanus Vaccination: Yes - 2012 Review of Systems - Review of Systems Constitutional: No symptoms reported EENT: Mouth pain, Dental problem Cardiovascular: No symptoms reported Respiratory: No symptoms reported Gastrointestinal: No symptoms reported Genitourinary: No symptoms reported Male Genitourinary: No symptoms reported Musculoskeletal: Back pain, Muscle pain, Muscle stiffness Skin: No symptoms reported Hematologic/Lymphatic: No symptoms reported Neurological/Psychological: No symptoms reported -: Yes All other systems reviewed and negative Physical Exam - Vital signs Vitals: Temp Pulse Resp BP Pulse Ox 98 F 102 H 16 134/99 H 98 11/27/18 18:46 11/27/18 18:46 11/27/18 18:46 11/27/18 18:46 11/27/18 18:46 Interpretation: Normal - General General appearance: Appears well, Alert - HEENT Head: Normocephalic, Atraumatic Eyes: Normal Pupils: PERRL Ears: Normal External canal: Normal Tympanic membrane: Normal Sinus: Normal Nasal: Normal Mouth/Lips: Caries Mucous membranes: Normal Teeth diagram: 1 - Dental pain and cavity - Respiratory Respiratory status: No respiratory distress Chest status: Nontender Breath sounds: Normal Chest palpation: Normal - Cardiovascular Rhythm: Regular Heart sounds: Normal auscultation Murmur: No - Abdominal Inspection: Normal Distension: No distension Bowel sounds: Normal Tenderness: Nontender Organomegaly: No organomegaly - Back Back: Normal, Tender. No: Deformity/step-off, Vertebra tenderness, Scars, Scoliosis, Wounds Notes: No acute signs or symptoms of cauda equina, no loss of control of bowel bladder, no loss of sensation or control of lower extremities, no saddle anesthesia, - Extremities General upper extremity: Normal inspection, Nontender, Normal color, Normal ROM, Normal temperature General lower extremity: Normal inspection, Nontender, Normal color, Normal ROM, Normal temperature, Normal weight bearing. No: Justine's sign - Neurological Neuro grossly intact: Yes Cognition: Normal Orientation: AAOx4 Jovan Coma Scale Eye Opening: Spontaneous [place] Coma Scale Verbal: Oriented [place] Coma Scale Motor: Obeys Commands Navar[place] Coma Scale Total: 15 Speech: Normal Motor strength normal: LUE, RUE, LLE, RLE Sensory: Normal - Psychological Associated symptoms: Normal affect, Normal mood - Skin Skin Temperature: Warm Skin Moisture: Dry Skin Color: Normal Course - Re-evaluation Re-evalutation: 11/27/18 19:26 Presentation is most consistent with likely an infected tooth. Airway is patent. Vitals within normal limits. Patient is able swallow without any difficulty. There is no significant facial swelling. No evidence of Stefan angina, apical abscess, or airway obstruction. Patient will be started on antibiotics. I've instructed to follow-up with dentistry as earliest ability for definitive management. At this time will discharge with return precautions and follow-up recommendations. Verbal discharge instructions given a the bedside and opportunity for questions given. Medication warnings reviewed. Patient is in agreement with this plan and has verbalized understanding of return precautions and the need for primary care follow-up in the next 24-72 hours. - Vital Signs Vital signs: Temp Pulse Resp BP Pulse Ox 98 F 102 H 16 134/99 H 98 11/27/18 18:46 11/27/18 18:46 11/27/18 18:46 11/27/18 18:46 11/27/18 18:46 Discharge - Discharge Clinical Impression: Pain due to dental caries Chronic back pain Qualifiers: Back pain location: low back pain Back pain laterality: bilateral Sciatica presence: with sciatica Sciatica laterality: sciatica of right side Qualified Code(s): M54.41 - Lumbago with sciatica, right side; G89.29 - Other chronic pain Condition: Stable Disposition: HOME, SELF-CARE Additional Instructions: Chronic Back Pain Chronic back pain (pain persisting longer than three months) is a common problem. A medical evaluation can look for herniated disc, arthritis, osteoporosis, tumors, and infections. But at least half the time, there's no obvious treatable cause. Anxiety and depression tend to worsen back pain. Ibuprofen or other anti-inflammatory medicine can help. A heating pad, used for 15-20 minutes at a time, can ease pain. For this type of back pain, narcotic medicines should be avoided. Muscle relaxers are rarely helpful unless you're having spasms. Activity is important. Find an aerobic exercise program that your back can tolerate. Too much rest makes back pain worse. Specific back exercises are usually prescribed to strengthen the back and abdominal muscles. Often, a physical therapist can help. Avoid heavy lifting, working while bent over, or standing with both knees straight. Most back pain patients do better with a firm mattress. If new symptoms of a "herniated disc" (radiation of pain, numbness, or tingling down the back of the leg or weakness in the leg) occur, you should be re-examined. TOOTHACHE: Your pain is due to dental decay. The tooth must be repaired in order for you to feel better. You will, therefore, be referred to a dentist. We do not have dentists on the staff at [facility]. Severe swelling or drainage around a tooth usually means a dental abscess. This also requires evaluation and treatment by the dentist, but antibiotics may be prescribed while awaiting dental treatment. You should be rechecked immediately if you develop major swelling of the face, increasing pain, a lump in the jaw or gums, headache, difficulty swallowing, or fever. CLINDAMYCIN: You have been given a prescription for the antibiotic clindamycin. It is often prescribed for infections in the mouth, such as dental infections or abscesses, and for skin infections due to MRSA. It's important that you take a ll the medication, unless instructed otherwise by your physician. Failure to complete the entire course can result in relapse of your condition. Common side effects of antibiotics include nausea, intestinal cramping, or diarrhea. Women may develop vaginal yeast infections, and babies can get yeast (thrush) in the mouth following the use of antibiotics. Contact your physician if you develop significant side effects from this medication. Allergy to this antibiotic can result in hives, wheezing, faintness, or itching. If symptoms of allergy occur, stop the medication and call the doctor. FOLLOW-UP CARE: You have been referred for follow-up care to the dentists listed below. Call the dentists office for an appointment as you were instructed or within the next two days. If you experience worsening or a significant change in your symptoms, notify the physician immediately or return to the Emergency Department at any time for re-evaluation. [facility] [address] Saturday mornings, by appointment [place] [id number] [place], [place] [id number] [facility] [address] [facility] [address] [facility] ([facility]) [facility] [address] [email or web address] [address] [place] [address] Saturday- 8:00am to 5:00 pm Will see patients from other [facility]. Charges based on income and family size and accepts Medicare, Medicaid, and Insurances Will pull molars [facility] [id number] Hours of Operation 8:00 am - 4:30 pm weekdays The following dental offices accept Medicaid: [facility] Dr. [address] Dr. Avilez Dr. Leone Dr. Sow Gagan Monge, Enrique, and [place] [facility] Dr. Moran ([place]) Dr. Alcala ([place]) [facility] Drs. Claire ([place]) Dr. Llamas ([place]) [facility] Dr. Ponce ([place]) Drs. Chao and ([place]) Medicaid Care Line Forms: Elevated Blood Pressure, Smoking Cessation Education Referrals: [facility] [Provider Group] - Follow up as needed
== END 2018-11-27 19:28 | disposition home or self-care (01) ==
LOC: ER 18:36
DX: K02.9 Dental caries, unspecified (principal); M54.41 Lumbago with sciatica, right side; M79.10 Myalgia, unspecified site; F17.210 Nicotine dependence, cigarettes, uncomplicated; Z91.040 Latex allergy status; Z88.0 Allergy status to penicillin; Z91.030 Bee allergy status
CPT/HCPCS: 99283; 99406

== ENCOUNTER 2018-12-27 22:51 | Emergency (ER) | payer MEDICARE, MEDICAID ==
[2018-12-28 00:22] LABS: APPEARANCE,URINE CLEAR; BILIRUBIN,URINE NEGATIVE (NEGATIVE); COLOR,URINE YELLOW; GLUCOSE, URINE NEGATIVE (NEGATIVE); KETONES,URINE NEGATIVE (NEGATIVE); LEUKOCYTE ESTERASE,URINE NEGATIVE (NEGATIVE); NITRITE,URINE NEGATIVE (NEGATIVE); PROTEIN,URINE NEGATIVE (NEGATIVE); URINE SPECIFIC GRAVITY 1.026; UROBILINOGEN,URINE NEGATIVE mg/dL (<2.0)
[2018-12-28] MEDS ORDERED: NORMAL SALINE 1000 ML 1,000 ML IV ONE (00:26)
[2018-12-28 00:55] LABS: EOSINOPHILS % (AUTO) 1.2 % (0-6); HEMATOCRIT 43.9 % (37.9-51.0); HEMOGLOBIN 15.1 g/dL (13.5-17.0); LYMPHOCYTES % (AUTO) 25.4 % (13-45); MEAN CORPUSCULAR HEMOGLOBIN 30.3 pg (27.0-33.4); MEAN CORPUSCULAR HGB CONC 34.3 g/dL (32.0-36.0); MEAN CORPUSCULAR VOLUME 88 fl (80-97); MONOCYTES % (AUTO) 7.3 % (3-13); PLATELET COUNT 231 10^3/uL (150-450); RED BLOOD COUNT 4.98 10^6/uL (4.35-5.55); RED CELL DISTRIBUTION WIDTH 13.2 % (11.5-14.0); SEGMENTED NEUTROPHILS % (AUTO) 65.1 % (42-78); WHITE BLOOD COUNT 8.6 10^3/uL (4.0-10.5)
[2018-12-28 00:56] LABS: ABSOLUTE BASOPHILS # (AUTO) 0.1 10^3/uL (0.0-0.2); ABSOLUTE EOSINOPHILS # (AUTO) 0.1 10^3/uL (0.0-0.6); ABSOLUTE LYMPHOCYTES (AUTO) 2.2 10^3/uL (0.5-4.7); ABSOLUTE MONOCYTES (AUTO) 0.6 10^3/uL (0.1-1.4); ABSOLUTE NEUT (AUTO) 5.6 10^3/uL (1.7-8.2); TOTAL CELLS COUNTED % (AUTO) 100 %
[2018-12-28] MEDS ORDERED: ONDANSETRON HCL INJ/PF 4 MG/2 ML SDV IV ONE (01:11)
[2018-12-28 01:25] LABS: ALBUMIN 4.8 g/dL (3.5-5.0); ALKALINE PHOSPHATASE 63 U/L (38-126); ANION GAP 13 (5-19); ASPARTATE AMINO TRANSFERASE 47 U/L (17-59); BILIRUBIN,DIRECT 0.2 mg/dL (0.0-0.4); BILIRUBIN,TOTAL 0.8 mg/dL (0.2-1.3); BLOOD UREA NITROGEN 25 mg/dL (7-20); CARBON DIOXIDE 26 mmol/L (22-30); CHLORIDE 101 mmol/L (98-107); GLUCOSE 99 mg/dL (75-110); POTASSIUM 4.2 mmol/L (3.6-5.0); TOTAL PROTEIN 7.9 g/dL (6.3-8.2)
[2018-12-28 02:10] VITALS: BP 127/82
--- NOTE | 2018-12-28 02:30 | ER Document Report ---
ED GI/ - General Chief Complaint: Abdominal Pain Stated Complaint: GENERALIZED WEAKNESS Time Seen by Provider: 12/28/18 00:26 Primary Care Provider: DENNIS STONE MD [Primary Care Provider] - Follow up as needed Notes: Patient is a 28-year-old male presents to the emergency department after "eating some undercooked chicken." States prior to arrival to the emergency department he ate what he feels as though was undercooked chicken. States he had 3 episodes of diarrhea and generalized abdominal pain which is why presents to the emergency room. Patient voices he also feels nauseated but is denying any vomiting. States he has a history of alcoholic pancreatitis and depression. States he takes Trileptal and Zoloft on a daily basis. TRAVEL OUTSIDE OF THE [place] IN LAST 30 DAYS: No - Related Data Allergies/Adverse Reactions: latex [Latex] Allergy (Unknown, Verified 06/26/18 12:57) Penicillins Allergy (Verified 06/26/18 12:57) bees Allergy (Uncoded 06/26/18 12:57) Home Medications: zoloft. trileptil Past Medical History - General Information source: Patient - Social History Smoking Status: Current Every Day Smoker Chew tobacco use (# tins/day): Yes Frequency of alcohol use: in the past Family History: Reviewed & Not Pertinent, Arthritis, CVA, DM, Hypertension, Malignancy Patient has suicidal ideation: No Patient has homicidal ideation: No Neurological Medical History: Reports: Hx Seizures - Patient reports 3 seizures, but thinks they were drug-induced. 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 Musculoskeletal Medical History: Reports Hx Arthritis - hands, Reports Hx Musculoskeletal Deformity Psychiatric Medical History: Reports: Hx Attention Deficit Hyperactivity Disorder, Hx Bipolar Disorder, Hx Depression - manic, Hx Schizophrenia Past Surgical History: Reports: Hx Oral Surgery - Immunizations Immunizations up to date: Yes Hx Diphtheria, Pertussis, Tetanus Vaccination: Yes - 2012 Review of Systems - Review of Systems Constitutional: denies: Fever EENT: No symptoms reported Cardiovascular: No symptoms reported Respiratory: No symptoms reported Gastrointestinal: See HPI Genitourinary: denies: Burning, Dysuria Male Genitourinary: denies: Testicular pain Musculoskeletal: No symptoms reported Skin: No symptoms reported Hematologic/Lymphatic: No symptoms reported Neurological/Psychological: No symptoms reported Physical Exam - Vital signs Vitals: Temp Pulse Resp BP Pulse Ox 98.4 F 121 H 19 141/89 H 98 12/27/18 23:14 12/27/18 23:14 12/27/18 23:14 12/27/18 23:14 12/27/18 23:14 - Notes Notes: GENERAL: Alert, interacts well. No acute distress. HEAD: Normocephalic, atraumatic. EYES: Pupils equal, round, and reactive to light. Extraocular movements intact. ENT: Oral mucosa moist, tongue midline. NECK: Full range of motion. Supple. Trachea midline. LUNGS: Clear to auscultation bilaterally, no wheezes, rales, or rhonchi. No respiratory distress. HEART: Regular rate and rhythm. No murmur ABDOMEN: Soft, slight tenderness noted left upper quadrant. Otherwise abdominal exam benign. Non-distended. Bowel sounds present in all 4 quadrants. EXTREMITIES: Moves all 4 extremities spontaneously. No edema, normal radial and dorsalis pedis pulses bilaterally. No cyanosis. BACK: no cervical, thoracic, lumbar midline tenderness. No saddle anesthesia, normal distal neurovascular exam. CVA tenderness negative bilaterally NEUROLOGICAL: Alert and oriented x3. Normal speech. cranial nerves II through XII grossly intact PSYCH: Normal affect, normal mood. SKIN: Warm, dry, normal turgor. No rashes or lesions noted. Course - Re-evaluation Re-evalutation: Laboratory 12/27/18 12/28/18 12/28/18 23:15 00:44 00:44 WBC 8.6 RBC 4.98 Hgb 15.1 Hct 43.9 MCV 88 MCH 30.3 MCHC 34.3 RDW 13.2 Plt Count 231 Lymph % (Auto) 25.4 [place] % (Auto) 7.3 Eos % (Auto) 1.2 Baso % (Auto) 1.0 Absolute Neuts (auto) 5.6 Absolute Lymphs (auto) 2.2 Absolute Monos (auto) 0.6 Absolute Eos (auto) 0.1 Absolute Basos (auto) 0.1 Seg Neutrophils % 65.1 Sodium 139.6 Potassium 4.2 Chloride 101 Carbon Dioxide 26 Anion Gap 13 BUN 25 H Creatinine 0.94 Est GFR ( Amer) > 60 Est GFR (MDRD) Non-Af > 60 Glucose 99 Calcium 10.0 Total Bilirubin 0.8 Direct Bilirubin 0.2 Neonat Total Bilirubin Not Reportable Neonat Direct Bilirubin Not Reportable Neonat Indirect Bili Not Reportable AST 47 ALT 77 Alkaline Phosphatase 63 Total Protein 7.9 Albumin 4.8 Lipase 231.1 Urine Color YELLOW Urine Appearance CLEAR Urine pH 7.0 Ur Specific [place] 1.026 Urine Protein NEGATIVE Urine Glucose (UA) NEGATIVE Urine Ketones NEGATIVE Urine Blood NEGATIVE Urine Nitrite NEGATIVE Urine Bilirubin NEGATIVE Urine Urobilinogen NEGATIVE Ur Leukocyte Esterase NEGATIVE Urine RBC (Auto) 3 Urine Mucus (Auto) RARE Urine Ascorbic Acid NEGATIVE After treatments with fluid and Zofran in the emergency department patient voices he is no longer nauseated. Patient has been able to drink a bottle of Pepsi with no discomfort. He has had no further episodes of diarrhea. States he overall feels better. Discussed close follow-up with primary care provider. Patient stable for discharge. - Vital Signs Vital signs: Temp Pulse Resp BP Pulse Ox 98.8 F 95 20 127/82 H 99 12/28/18 02:09 12/28/18 02:09 12/28/18 02:09 12/28/18 02:09 12/28/18 02:09 - Laboratory Result Diagrams: 12/28/18 00:44 12/28/18 00:44 Laboratory results interpreted by me: 12/28/18 00:44 BUN 25 H Discharge - Discharge Clinical Impression: Nausea Diarrhea Qualifiers: Diarrhea type: unspecified type Qualified Code(s): R19.7 - Diarrhea, unspecified Abdominal pain Qualifiers: Abdominal location: left upper quadrant Qualified Code(s): R10.12 - Left upper quadrant pain Condition: Stable Disposition: HOME, SELF-CARE Instructions: Abdominal Pain ([facility]), Antinausea Medication ([facility]), Diarrhea, Nonspecific ([facility]) Additional Instructions: As we discussed you have been seen and treated in the emergency department for generalized abdominal pain, diarrhea and nausea. Your labs are without abnormality. Please make sure you follow-up with your primary care provider in the next 12 to 24 hours. Return to the emergency department for any concerns. Referrals: DENNIS STONE MD [Primary Care Provider] - Follow up as needed
[2018-12-28] MEDS ORDERED: ONDANSETRON ODT 4 MG TAB (6 TAB/ER DISP) PO PRN (03:04)
== END 2018-12-28 03:13 | disposition home or self-care (01) ==
LOC: ER 22:51
DX: R10.12 Left upper quadrant pain (principal); R11.0 Nausea; R19.7 Diarrhea, unspecified; R53.1 Weakness; R10.84 Generalized abdominal pain; Z79.899 Other long term (current) drug therapy; F17.200 Nicotine dependence, unspecified, uncomplicated
CPT/HCPCS: 36415; 83690; 85025; 80053; 81001; J2405; J7030; A9270; 96361; 96374; 99284

== ENCOUNTER 2018-12-28 20:02 | Emergency (ER) | payer MEDICARE, MEDICAID ==
--- NOTE | 2018-12-28 20:11 | ER Document Report ---
ED Medical Screen (RME) - General Chief Complaint: Diarrhea Stated Complaint: ABDOMINAL PAIN/DIARRHEA Time Seen by Provider: 12/28/18 20:06 Primary Care Provider: DENNIS STONE MD [Primary Care Provider] - Follow up as needed Mode of Arrival: Ambulatory Information source: Patient Notes: This 28-year-old male presents today with complaints of abdominal pain and diarrhea. Reports he has had it for several days. He was evaluated in the emergency department yesterday for same symptoms. Patient reports he lives and states. With his girlfriend is unsure if she is sick because he cannot get home he does not have a ride. Patient reports he stayed at the [facility] after he was discharged last night. He reports he is homeless until January 11 when he g ets his money. He has not treated himself with any type of Pepto or Lomotil or anything. I have greeted and performed a rapid initial assessment of this patient. A comprehensive ED assessment and evaluation of the patient, analysis of test results and completion of the medical decision making process will be conducted by additional ED providers. Dictation of this chart was performed using voice recognition software; therefore, there may be some unintended grammatical errors. TRAVEL OUTSIDE OF THE [place] IN LAST 30 DAYS: No - Related Data Allergies/Adverse Reactions: latex [Latex] Allergy (Unknown, Verified 06/26/18 12:57) Penicillins Allergy (Verified 06/26/18 12:57) bees Allergy (Uncoded 06/26/18 12:57) Past Medical History - Social History Family history: Reviewed & Not Pertinent Neurological Medical History: Reports: Hx Seizures - Patient reports 3 seizures, but thinks they were drug-induced. 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 Musculoskeltal Medical History: Reports Hx Arthritis - hands, Reports Hx Musculoskeletal Deformity Psychiatric Medical History: Reports: Hx Attention Deficit Hyperactivity Disorder, Hx Bipolar Disorder, Hx Depression - manic, Hx Schizophrenia Past Surgical History: Reports: Hx Oral Surgery - Immunizations Immunizations up to date: Yes Hx Diphtheria, Pertussis, Tetanus Vaccination: Yes - 2012 Physical Exam - Vital signs Vitals: Temp Pulse Resp BP Pulse Ox 97.9 F 114 H 18 136/86 H 100 12/28/18 20:07 12/28/18 20:07 12/28/18 20:07 12/28/18 20:07 12/28/18 20:07 Course - Vital Signs Vital signs: Temp Pulse Resp BP Pulse Ox 97.9 F 114 H 18 136/86 H 100 12/28/18 20:07 12/28/18 20:07 12/28/18 20:07 12/28/18 20:07 12/28/18 20:07 Doctor's Discharge - Discharge Referrals: DENNIS STONE MD [Primary Care Provider] - Follow up as needed
[2018-12-28 20:35] LABS: ABSOLUTE BASOPHILS # (AUTO) 0.1 10^3/uL (0.0-0.2); ABSOLUTE EOSINOPHILS # (AUTO) 0.1 10^3/uL (0.0-0.6); ABSOLUTE LYMPHOCYTES (AUTO) 2.1 10^3/uL (0.5-4.7); ABSOLUTE MONOCYTES (AUTO) 0.8 10^3/uL (0.1-1.4); ABSOLUTE NEUT (AUTO) 6.2 10^3/uL (1.7-8.2); BASOPHILS % (AUTO) 1.2 % (0-2); EOSINOPHILS % (AUTO) 0.8 % (0-6); HEMATOCRIT 44.7 % (37.9-51.0); HEMOGLOBIN 15.4 g/dL (13.5-17.0); LYMPHOCYTES % (AUTO) 22.8 % (13-45); MEAN CORPUSCULAR HEMOGLOBIN 30.4 pg (27.0-33.4); MEAN CORPUSCULAR HGB CONC 34.5 g/dL (32.0-36.0); MEAN CORPUSCULAR VOLUME 88 fl (80-97); MONOCYTES % (AUTO) 8.3 % (3-13); PLATELET COUNT 261 10^3/uL (150-450); RED BLOOD COUNT 5.07 10^6/uL (4.35-5.55); SEGMENTED NEUTROPHILS % (AUTO) 66.9 % (42-78); TOTAL CELLS COUNTED % (AUTO) 100 %; WHITE BLOOD COUNT 9.3 10^3/uL (4.0-10.5)
[2018-12-28 20:40] LABS: APPEARANCE,URINE CLEAR; BILIRUBIN,URINE NEGATIVE (NEGATIVE); COLOR,URINE YELLOW; GLUCOSE, URINE NEGATIVE (NEGATIVE); KETONES,URINE NEGATIVE (NEGATIVE); LEUKOCYTE ESTERASE,URINE NEGATIVE (NEGATIVE); NITRITE,URINE NEGATIVE (NEGATIVE); PROTEIN,URINE NEGATIVE (NEGATIVE); URINE SPECIFIC GRAVITY 1.018; UROBILINOGEN,URINE NEGATIVE mg/dL (<2.0)
[2018-12-28 20:52] LABS: ALBUMIN 5.3 g/dL (3.5-5.0); ALKALINE PHOSPHATASE 69 U/L (38-126); ANION GAP 14 (5-19); ASPARTATE AMINO TRANSFERASE 48 U/L (17-59); BILIRUBIN,DIRECT 0.1 mg/dL (0.0-0.4); BILIRUBIN,TOTAL 1.3 mg/dL (0.2-1.3); BLOOD UREA NITROGEN 12 mg/dL (7-20); CALCIUM 10.6 mg/dL (8.4-10.2); CARBON DIOXIDE 26 mmol/L (22-30); CHLORIDE 102 mmol/L (98-107); GLUCOSE 99 mg/dL (75-110); POTASSIUM 4.5 mmol/L (3.6-5.0); TOTAL PROTEIN 8.6 g/dL (6.3-8.2)
[2018-12-28] MEDS ORDERED: LOPERAMIDE HCL 2 MG CAPSULE PO ONE (22:41)
--- NOTE | 2018-12-28 23:11 | RADIOLOGY REPORT (SQ) ---
EXAM DESCRIPTION: CT ABDOMEN PELVIS WITH IV CONTRAST COMPLETED DATE/TME: 12/28/2018 21:37 CLINICAL HISTORY: 28 years, Male, general pain COMPARISON: 03/23/2017 CT TECHNIQUE: 408 Images stored on PACS. All CT scanners at this facility use dose modulation, iterative reconstruction, and/or weight based dosing when appropriate to reduce radiation dose to as low as reasonably achievable (ALARA). [facility]: Dose Right [facility]: CareDose [facility]: Dose Right [facility]: Teradose 4D [facility]: [employer] LIMITATIONS: None. FINDINGS: The lung bases are unremarkable. Osseous structures are grossly intact. Fatty infiltrative change to the liver. The spleen, adrenal glands, pancreas, are unremarkable. Horseshoe type kidney noted. Gallbladder is present. No gross evidence for bowel obstruction. Normal appendix. No free air or free fluid IMPRESSION: No acute intra-abdominal/pelvic process TECHNICAL DOCUMENTATION: Quality ID # 436: Final reports with documentation of one or more dose reduction techniques (e.g., Automated exposure control, adjustment of the mA and/or kV according to patient size, use of iterative reconstruction technique) copyright 2011 [employer]- All Rights Reserved
[2018-12-28] MEDS ORDERED: DICYCLOMINE HCL 20 MG TABLET PO ONE (23:31)
--- NOTE | 2018-12-28 23:48 | ER Document Report ---
ED GI/ - General Chief Complaint: Abdominal Pain Stated Complaint: ABDOMINAL PAIN/DIARRHEA Time Seen by Provider: 12/28/18 20:06 Primary Care Provider: DENNIS STONE MD [Primary Care Provider] - Follow up as needed Mode of Arrival: Ambulatory Notes: My note from yesterday's visit: Patient is a 28-year-old male presents to the emergency department after "eating some undercooked chicken." States prior to arrival to the emergency department he ate what he feels as though was undercooked chicken. States he had 3 episodes of diarrhea and generalized abdominal pain which is why presents to the emergency room. Patient voices he also feels nauseated but is denying any vomiting. States he has a history of alcoholic pancreatitis and depression. States he takes Trileptal and Zoloft on a daily basis. Today's HPI: Patient represents to the emergency department at this evening for abdominal pain that is resurfaced. States when he left last evening he was feeling better. States now he has bilateral lower abdominal pain. Last evening his pain was located LUQ. States he has had 2 further episodes of diarrhea. Patient's denying any nausea or vomiting at this time. Denies any fevers. I have read nursing notes who states patient was at [facility] today. Was unable to get a ride home. I have been straightforward with the patient, I have asked him if he just does not have a ride or if he is having abdominal pain. Patient voices he is homeless and does not have a place to go but is also now having lower abdominal pain. Patient voices when he was at [facility] he "did not eat anything." TRAVEL OUTSIDE OF THE [place] IN LAST 30 DAYS: No - Related Data Allergies/Adverse Reactions: latex [Latex] Allergy (Unknown, Verified 06/26/18 12:57) Penicillins Allergy (Verified 06/26/18 12:57) bees Allergy (Uncoded 06/26/18 12:57) Home Medications: none Past Medical History - General Information source: Patient - Social History Smoking Status: Never Smoker Chew tobacco use (# tins/day): No Frequency of alcohol use: Social Drug Abuse: None Family History: Reviewed & Not Pertinent, Arthritis, CVA, DM, Hypertension, Malignancy Patient has suicidal ideation: No Patient has homicidal ideation: No Neurological Medical History: Reports: Hx Seizures - Patient reports 3 seizures, but thinks they were drug-induced. 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 Musculoskeletal Medical History: Reports Hx Arthritis - hands, Reports Hx Musculoskeletal Deformity Psychiatric Medical History: Reports: Hx Attention Deficit Hyperactivity Disorder, Hx Bipolar Disorder, Hx Depression - manic, Hx Schizophrenia Past Surgical History: Reports: Hx Oral Surgery - Immunizations Immunizations up to date: Yes Hx Diphtheria, Pertussis, Tetanus Vaccination: Yes - 2012 Review of Systems - Review of Systems Constitutional: denies: Fever EENT: No symptoms reported Cardiovascular: No symptoms reported Respiratory: No symptoms reported Gastrointestinal: See HPI Genitourinary: denies: Dysuria, Discharge Male Genitourinary: denies: Testicular pain Musculoskeletal: No symptoms reported Skin: No symptoms reported Hematologic/Lymphatic: No symptoms reported Neurological/Psychological: No symptoms reported Physical Exam - Vital signs Vitals: Temp Pulse Resp BP Pulse Ox 97.9 F 114 H 18 136/86 H 100 12/28/18 20:07 12/28/18 20:07 12/28/18 20:07 12/28/18 20:07 12/28/18 20:07 - Notes Notes: GENERAL: Alert, interacts well. No acute distress. HEAD: Normocephalic, atraumatic. EYES: Pupils equal, round, and reactive to light. Extraocular movements intact. ENT: Oral mucosa moist, tongue midline. NECK: Full range of motion. Supple. Trachea midline. LUNGS: Clear to auscultation bilaterally, no wheezes, rales, or rhonchi. No respiratory distress. HEART: Regular rate and rhythm. No murmur ABDOMEN: Soft, right and left lower quadrant abdominal pain noted, otherwise abdominal exam benign. Non-distended. Bowel sounds present in all 4 quadrants. EXTREMITIES: Moves all 4 extremities spontaneously. No edema, normal radial and dorsalis pedis pulses bilaterally. No cyanosis. BACK: no cervical, thoracic, lumbar midline tenderness. No saddle anesthesia, normal distal neurovascular exam. No CVA tenderness noted bilaterally NEUROLOGICAL: Alert and oriented x3. Normal speech. cranial nerves II through XII grossly intact PSYCH: Normal affect, normal mood. SKIN: Warm, dry, normal turgor. No rashes or lesions noted. Course - Re-evaluation Re-evalutation: 12/28/18 23:49 Patient does present to the emergency department as a bounce back, he is tachycardic upon initial arrival. Is complaining of bilateral lower abdominal pain at this time. I have opted for CT imaging at this time as patient is continuing with abdominal pain. Laboratory 12/28/18 12/28/18 12/28/18 20:15 20:15 20:15 WBC 9.3 RBC 5.07 Hgb 15.4 Hct 44.7 MCV 88 MCH 30.4 MCHC 34.5 RDW 13.0 Plt Count 261 Lymph % (Auto) 22.8 [place] % (Auto) 8.3 Eos % (Auto) 0.8 Baso % (Auto) 1.2 Absolute Neuts (auto) 6.2 Absolute Lymphs (auto) 2.1 Absolute Monos (auto) 0.8 Absolute Eos (auto) 0.1 Absolute Basos (auto) 0.1 Seg Neutrophils % 66.9 Sodium 142.3 Potassium 4.5 Chloride 102 Carbon Dioxide 26 Anion Gap 14 BUN 12 Creatinine 0.89 Est GFR ( Amer) > 60 Est GFR (MDRD) Non-Af > 60 Glucose 99 Calcium 10.6 H Total Bilirubin 1.3 Direct Bilirubin 0.1 Neonat Total Bilirubin Not Reportable Neonat Direct Bilirubin Not Reportable Neonat Indirect Bili Not Reportable AST 48 ALT 78 Alkaline Phosphatase 69 Total Protein 8.6 H Albumin 5.3 H Lipase 396.9 H Urine Color YELLOW Urine Appearance CLEAR Urine pH 5.0 Ur Specific [place] 1.018 Urine Protein NEGATIVE Urine Glucose (UA) NEGATIVE Urine Ketones NEGATIVE Urine Blood SMALL H Urine Nitrite NEGATIVE Urine Bilirubin NEGATIVE Urine Urobilinogen NEGATIVE Ur Leukocyte Esterase NEGATIVE Urine RBC (Auto) 3 Urine Mucus (Auto) RARE Urine Ascorbic Acid NEGATIVE Abdomen/Pelvis CT 12/28/18 21:37 IMPRESSION: No acute intra-abdominal/pelvic process TECHNICAL DOCUMENTATION: Quality ID # 436: Final reports with documentation of one or more dose reduction techniques (e.g., Automated exposure control, adjustment of the mA and/or kV according to patient size, use of iterative reconstruction technique) copyright 2011 [employer]- All Rights Reserved Patient was initially treated with Imodium as he is requesting something to "stop the diarrhea." Patient was then treated with Bentyl as he is now stating the pain is no longer sharp it is just "crampy." I discussed with patient need for close follow-up with primary care provider. Also discussed use of Bentyl for home. Patient voices he does not have any money and will not be able to get prescriptions filled. I have provided the patient with good Rx discount cards. I discussed with patient use of [facility]. Patient stable for discharge. - Vital Signs Vital signs: Temp Pulse Resp BP Pulse Ox 98.2 F 98 18 134/86 H 98 12/28/18 21:38 12/28/18 21:38 12/28/18 20:07 12/28/18 21:38 12/28/18 21:38 - Laboratory Result Diagrams: 12/28/18 20:15 12/28/18 20:15 Laboratory results interpreted by me: 12/28/18 12/28/18 20:15 20:15 Calcium 10.6 H Total Protein 8.6 H Albumin 5.3 H Lipase 396.9 H Urine Blood SMALL H Discharge - Discharge Clinical Impression: Abdominal pain Qualifiers: Abdominal location: lower abdomen, unspecified Qualified Code(s): R10.30 - Lower abdominal pain, unspecified Diarrhea Qualifiers: Diarrhea type: unspecified type Qualified Code(s): R19.7 - Diarrhea, unspecified Condition: Stable Disposition: HOME, SELF-CARE Instructions: Abdominal Pain ([facility]), Diarrhea, Nonspecific ([facility]) Additional Instructions: As we discussed you have been seen and treated in the emergency department for your lower abdominal pain. Your images reveal no signs of abnormalities. Your lab work is also unremarkable. Please make sure you take prescription medications as prescribed. Please also make sure you follow-up at [facility] in the next 12 to 24 hours. Please return to the emergency department for any concerns. Prescriptions: Dicyclomine HCl [Bentyl 20 mg Tablet] 20 mg PO QID #20 tablet Referrals: DENNIS STONE MD [Primary Care Provider] - Follow up as needed [facility] [Provider Group] - Follow up as needed [facility] [Provider Group] - Follow up as needed
[2018-12-29 00:08] VITALS: BP 112/80
== END 2018-12-29 00:10 | disposition home or self-care (01) ==
LOC: ER 20:02
DX: R10.30 Lower abdominal pain, unspecified (principal); R19.7 Diarrhea, unspecified; R10.84 Generalized abdominal pain; R11.0 Nausea; R10.12 Left upper quadrant pain; Z79.899 Other long term (current) drug therapy
CPT/HCPCS: 36415; 83690; 87070; 81001; 74177; A9270; 99284

== ENCOUNTER 2019-01-20 02:01 | Emergency (ER) | payer MEDICARE, MEDICAID ==
[2019-01-20 02:50] LABS: ABSOLUTE BASOPHILS # (AUTO) 0.1 10^3/uL (0.0-0.2); ABSOLUTE EOSINOPHILS # (AUTO) 0.2 10^3/uL (0.0-0.6); ABSOLUTE LYMPHOCYTES (AUTO) 2.7 10^3/uL (0.5-4.7); ABSOLUTE MONOCYTES (AUTO) 0.7 10^3/uL (0.1-1.4); ABSOLUTE NEUT (AUTO) 4.1 10^3/uL (1.7-8.2); BASOPHILS % (AUTO) 1.2 % (0-2); EOSINOPHILS % (AUTO) 2.4 % (0-6); HEMOGLOBIN 13.8 g/dL (13.5-17.0); LYMPHOCYTES % (AUTO) 34.9 % (13-45); MEAN CORPUSCULAR HEMOGLOBIN 30.5 pg (27.0-33.4); MEAN CORPUSCULAR HGB CONC 34.4 g/dL (32.0-36.0); MEAN CORPUSCULAR VOLUME 89 fl (80-97); MONOCYTES % (AUTO) 8.9 % (3-13); PLATELET COUNT 219 10^3/uL (150-450); RED BLOOD COUNT 4.51 10^6/uL (4.35-5.55); RED CELL DISTRIBUTION WIDTH 12.9 % (11.5-14.0); SEGMENTED NEUTROPHILS % (AUTO) 52.6 % (42-78); TOTAL CELLS COUNTED % (AUTO) 100 %; WHITE BLOOD COUNT 7.7 10^3/uL (4.0-10.5)
[2019-01-20 03:05] LABS: ALBUMIN 4.5 g/dL (3.5-5.0); ALKALINE PHOSPHATASE 72 U/L (38-126); ANION GAP 10 (5-19); ASPARTATE AMINO TRANSFERASE 46 U/L (17-59); BILIRUBIN,DIRECT 0.1 mg/dL (0.0-0.4); BILIRUBIN,TOTAL 0.6 mg/dL (0.2-1.3); BLOOD UREA NITROGEN 10 mg/dL (7-20); CALCIUM 9.8 mg/dL (8.4-10.2); CARBON DIOXIDE 28 mmol/L (22-30); CHLORIDE 104 mmol/L (98-107); GLUCOSE 111 mg/dL (75-110); POTASSIUM 4.1 mmol/L (3.6-5.0); TOTAL PROTEIN 7.1 g/dL (6.3-8.2)
[2019-01-20 03:08] LABS: ACETAMINOPHEN < 10 ug/mL (10-30); ALCOHOL < 10 mg/dL (NONE DETECTED); SALICYLATE < 1.0 mg/dL (2.0-20.0)
[2019-01-20 05:04] LABS: APPEARANCE,URINE CLEAR; BILIRUBIN,URINE NEGATIVE (NEGATIVE); COLOR,URINE YELLOW; GLUCOSE, URINE NEGATIVE (NEGATIVE); KETONES,URINE NEGATIVE (NEGATIVE); LEUKOCYTE ESTERASE,URINE NEGATIVE (NEGATIVE); NITRITE,URINE NEGATIVE (NEGATIVE); PROTEIN,URINE NEGATIVE (NEGATIVE); URINE SPECIFIC GRAVITY 1.017; UROBILINOGEN,URINE NEGATIVE mg/dL (<2.0)
[2019-01-20 05:30] LABS: URINE AMPHETAMINES SCREEN NEGATIVE; URINE BARBITURATES SCREEN NEGATIVE; URINE BENZODIAZEPINES SCREEN NEGATIVE; URINE COCAINE SCREEN NEGATIVE; URINE MARIJUANA (THC) SCREEN NEGATIVE; URINE METHADONE SCREEN NEGATIVE; URINE PHENCYCLIDINE SCREEN NEGATIVE
--- NOTE | 2019-01-20 07:03 | ER Document Report ---
ED General - General Chief Complaint: Suicidal Ideation Stated Complaint: PSYCH Time Seen by Provider: 01/20/19 06:16 Primary Care Provider: DENNIS STONE MD [Primary Care Provider] - Follow up as needed TRAVEL OUTSIDE OF THE [place] IN LAST 30 DAYS: No - HPI Notes: Patient presents with suicidal ideation. He states that this started yesterday. He states that he is having thoughts of wanting to stab himself with a knife. He denies any thoughts of wanting hurting others. He states he does have previous suicide attempts. He states he has been feeling depressed and is no longer taking his medications because they do not work. Patient's symptoms are severe and apparently constant. They are worse with stress and better without stress. No known radiation of the symptoms. He denies using any type of illicit drugs. He states he is not hearing voices. He is not seeing any type of visions. - Related Data Allergies/Adverse Reactions: latex [Latex] Allergy (Unknown, Verified 06/26/18 12:57) Penicillins Allergy (Verified 06/26/18 12:57) bees Allergy (Uncoded 06/26/18 12:57) Past Medical History - General Information source: Patient - Social History Smoking Status: Current Every Day Smoker Frequency of alcohol use: None Drug Abuse: None Family History: Reviewed & Not Pertinent, Arthritis, CVA, DM, Hypertension, Malignancy Patient has suicidal ideation: Yes Patient has homicidal ideation: No Neurological Medical History: Reports: Hx Seizures - Patient reports 3 seizures, but thinks they were drug-induced. 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 Musculoskeletal Medical History: Reports Hx Arthritis - hands, Reports Hx Musculoskeletal Deformity Psychiatric Medical History: Reports: Hx Attention Deficit Hyperactivity Disorder, Hx Bipolar Disorder, Hx Depression - manic, Hx Schizophrenia Past Surgical History: Reports: Hx Oral Surgery - Immunizations Immunizations up to date: Yes Hx Diphtheria, Pertussis, Tetanus Vaccination: Yes - 2012 Review of Systems - Review of Systems Constitutional: denies: Chills, Fever Cardiovascular: denies: Chest pain, Palpitations Respiratory: denies: Cough, Short of breath -: Yes All other systems reviewed and negative Physical Exam - Vital signs Vitals: Temp Resp Pulse Ox 98.7 F 20 97 01/20/19 02:05 01/20/19 02:05 01/20/19 02:05 Interpretation: Normal - General General appearance: Appears well, Alert - HEENT Head: Normocephalic, Atraumatic Eyes: Normal Pupils: PERRL - Respiratory Respiratory status: No respiratory distress Chest status: Nontender Breath sounds: Normal Chest palpation: Normal - Cardiovascular Rhythm: Regular Heart sounds: Normal auscultation Murmur: No - Abdominal Inspection: Normal Distension: No distension Bowel sounds: Normal Tenderness: Nontender Organomegaly: No organomegaly - Back Back: Normal, Nontender - Extremities General upper extremity: Normal inspection, Nontender, Normal color, Normal ROM, Normal temperature General lower extremity: Normal inspection, Nontender, Normal color, Normal ROM, Normal temperature, Normal weight bearing. No: Justine's sign - Neurological Neuro grossly intact: Yes Cognition: Normal Orientation: AAOx4 [place] Coma Scale Eye Opening: Spontaneous [place] Coma Scale Verbal: Oriented [place] Coma Scale Motor: Obeys Commands [place] Coma Scale Total: 15 Speech: Normal Motor strength normal: LUE, RUE, LLE, RLE Sensory: Normal - Psychological Associated symptoms: Normal affect, Normal mood - Skin Skin Temperature: Warm Skin Moisture: Dry Skin Color: Normal Course - Re-evaluation Re-evalutation: 01/20/19 07:01 Patient presents with suicidal ideation. Patient has been placed on involuntary commitment papers due to being a threat to himself. Patient currently has a bed awaiting him at [facility]. - Vital Signs Vital signs: Temp Pulse Resp BP Pulse Ox 97.7 F 83 20 132/86 H 97 01/20/19 06:02 01/20/19 06:02 01/20/19 06:02 01/20/19 06:02 01/20/19 06:02 - Laboratory Result Diagrams: 01/20/19 02:20 01/20/19 02:20 Laboratory results interpreted by me: 01/20/19 02:20 Glucose 111 H Salicylates < 1.0 L Acetaminophen < 10 L Discharge - Discharge Clinical Impression: Suicidal ideation Depression Qualifiers: Depression Type: major depressive disorder Major depression recurrence: recurrent Active/Remission status: currently active Major depression episode severity: severe Psychotic features: without psychotic features Qualified Code(s): F33.2 - Major depressive disorder, recurrent severe without psychotic features Condition: Serious Disposition: PSYCH HOSP/UNIT Referrals: DENNIS STONE MD [Primary Care Provider] - Follow up as needed
--- NOTE | 2019-01-20 07:08 | EKG REPORT ---
SEVERITY:- OTHERWISE NORMAL ECG - SINUS TACHYCARDIA : Confirmed by: Cong Serna MD 20-Jan-2019 07:08:16
[2019-01-20 08:55] VITALS: BP 127/85
--- NOTE | 2019-01-20 10:18 | PSYCHOLOGICAL NOTE ---
Psych Note - Psych Note Date seen by psych provider: 01/20/19 Psych Note: Patient was accepted to [facility] prior to the behavioral health team arrival this a.m. Patient was transported via [facility] at approximately 8:45 AM
== END 2019-01-20 08:45 ==
LOC: ER 02:01
DX: F33.2 Major depressive disorder, recurrent severe without psychotic features (principal); R45.851 Suicidal ideations; F17.200 Nicotine dependence, unspecified, uncomplicated
CPT/HCPCS: 36415; 80053; 80307; 81001; 85025; 93005; 93010; 99285

== ENCOUNTER 2019-02-10 18:35 | Emergency (ER) | payer MEDICARE, MEDICAID | END 2019-02-10 19:15 | disposition left against medical advice (07) | LOC: ER 18:35 | DX: Z53.21 Procedure and treatment not carried out due to patient leaving prior to being seen by health care provider (principal); R10.9 Unspecified abdominal pain ==

== ENCOUNTER 2019-10-06 16:50 | Emergency (ER) | payer MEDICARE, MEDICAID | END 2019-10-06 17:06 | disposition left against medical advice (07) | LOC: ER 16:50 | DX: Z53.21 Procedure and treatment not carried out due to patient leaving prior to being seen by health care provider (principal); R06.02 Shortness of breath; R05 Cough ==

== ENCOUNTER 2019-11-26 15:30 | Emergency (ER) | payer MEDICARE, MEDICAID ==
[2019-11-26 15:36] VITALS: BP 143/95
[2019-11-26] MEDS ORDERED: MORPHINE SULFATE 10 MG/ML INJ IV ONE (16:55)
[2019-11-26] MEDS ORDERED: ONDANSETRON HCL INJ/PF 4 MG/2 ML SDV IV ONE (16:55)
[2019-11-26] MEDS ORDERED: RINGERS SOLUTION,LACTATED 1,000 ML IV ONE (16:55)
--- NOTE | 2019-11-26 16:57 | ER Document Report ---
ED Medical Screen (RME) - General Chief Complaint: Abnormal Lab Results Stated Complaint: ABNORMAL LABS/ABDOMINAL PAIN Time Seen by Provider: 11/26/19 16:49 Primary Care Provider: DENNIS STONE MD [Primary Care Provider] - Follow up as needed TRAVEL OUTSIDE OF THE [place] IN LAST 30 DAYS: No - HPI Notes: 11/26/19 16:56 29-year-old male to the emergency department with complaints of elevated pancreas enzymes. He states that his physician at [facility] sent him here. He states that he is a heavy alcohol drinker. He states that just prior to his symptoms started he drank a whole gallon of alcohol. He states he usually drinks about 1/5. He states that he has not had any fevers or chills. He has had nausea. He states his pain is all over. He denies any chest pain or shortness of breath. He is a past opioid and cocaine abuser. He is not currently on any regular medicine. On brief medical screening exam patient has tenderness to palpation to the epigastrium. I performed a brief medical screening exam on the patient determined that the patient needs further evaluation and management by main side provider. I have placed initial orders to help expedite care. - Related Data Allergies/Adverse Reactions: latex [Latex] Allergy (Unknown, Verified 11/26/19 16:49) Penicillins Allergy (Verified 11/26/19 16:49) bees Allergy (Uncoded 11/26/19 16:49) Past Medical History - Social History Chew tobacco use (# tins/day): No Frequency of alcohol use: Heavy Family history: Reviewed & Not Pertinent Neurological Medical History: Reports: Hx Seizures - Patient reports 3 seizures, but thinks they were drug-induced. Endocrine Medical History: 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 Musculoskeltal Medical History: Reports Hx Arthritis - hands, Reports Hx Musculoskeletal Deformity Psychiatric Medical History: Reports: Hx Attention Deficit Hyperactivity Disorder, Hx Bipolar Disorder, Hx Depression - manic, Hx Schizophrenia Past Surgical History: Reports: Hx Oral Surgery - Immunizations Immunizations up to date: Yes Hx Diphtheria, Pertussis, Tetanus Vaccination: Yes - 2012 Physical Exam - Vital signs Vitals: Temp Pulse Resp BP Pulse Ox 99.1 F 91 16 143/95 H 97 11/26/19 15:35 11/26/19 15:35 11/26/19 15:35 11/26/19 15:35 11/26/19 15:35 Course - Vital Signs Vital signs: Temp Pulse Resp BP Pulse Ox 99.1 F 91 16 143/95 H 97 11/26/19 16:49 11/26/19 15:35 11/26/19 15:35 11/26/19 15:35 11/26/19 15:35 Doctor's Discharge - Discharge Referrals: DENNIS STONE MD [Primary Care Provider] - Follow up as needed
== END 2019-11-26 19:00 | disposition left against medical advice (07) ==
LOC: ER 15:30
DX: R79.89 Other specified abnormal findings of blood chemistry (principal); R11.0 Nausea; R10.9 Unspecified abdominal pain; R10.816 Epigastric abdominal tenderness; Z91.040 Latex allergy status; Z88.0 Allergy status to penicillin; Z91.030 Bee allergy status; Z53.20 Procedure and treatment not carried out because of patient's decision for unspecified reasons
CPT/HCPCS: 99281

== ENCOUNTER 2019-11-27 13:45 | Emergency (ER) | payer MEDICARE, MEDICAID ==
[2019-11-27 13:51] VITALS: BP 131/84
[2019-11-27] MEDS ORDERED: NORMAL SALINE 1000 ML 1,000 ML IV ONE (13:59)
--- NOTE | 2019-11-27 14:05 | ER Document Report ---
ED Medical Screen (RME) - General Chief Complaint: Pancreatitis Stated Complaint: ABDOMINAL PAIN Time Seen by Provider: 11/27/19 13:55 Primary Care Provider: DENNIS STONE MD [Primary Care Provider] - Follow up as needed Notes: 29-year-old male presented to ED for complaint of abdominal pain x5 days. He states he went to [facility] and they told him that he had pancreatitis. He states he does drink daily. He smokes 1-1/2 packs a day no illicit drugs. He is alert oriented respirations regular nonlabored speaking in full sentences. I have greeted and performed a rapid initial assessment of this patient. A comprehensive ED assessment and evaluation of the patient, analysis of test results and completion of medical decision making process will be conducted by an additional ED providers. TRAVEL OUTSIDE OF THE [place] IN LAST 30 DAYS: No - Related Data Allergies/Adverse Reactions: latex [Latex] Allergy (Unknown, Verified 11/26/19 16:49) Penicillins Allergy (Verified 11/26/19 16:49) bees Allergy (Uncoded 11/26/19 16:49) Past Medical History - Social History Frequency of alcohol use: None Drug Abuse: None Family history: Reviewed & Not Pertinent Neurological Medical History: Reports: Hx Seizures - Patient reports 3 seizures, but thinks they were drug-induced. Endocrine Medical History: 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 Musculoskeltal Medical History: Reports Hx Arthritis - hands, Reports Hx Musculoskeletal Deformity Psychiatric Medical History: Reports: Hx Attention Deficit Hyperactivity Disorder, Hx Bipolar Disorder, Hx Depression - manic, Hx Schizophrenia Past Surgical History: Reports: Hx Oral Surgery - Immunizations Immunizations up to date: Yes Hx Diphtheria, Pertussis, Tetanus Vaccination: Yes - 2012 Physical Exam - Vital signs Vitals: Temp Pulse Resp BP Pulse Ox 98.1 F 93 16 131/84 H 96 11/27/19 13:49 11/27/19 13:49 11/27/19 13:49 11/27/19 13:49 11/27/19 13:49 Course - Vital Signs Vital signs: Temp Pulse Resp BP Pulse Ox 98.1 F 93 16 131/84 H 96 11/27/19 13:49 11/27/19 13:49 11/27/19 13:49 11/27/19 13:49 11/27/19 13:49 Doctor's Discharge - Discharge Referrals: DENNIS STONE MD [Primary Care Provider] - Follow up as needed
[2019-11-27 14:33] LABS: ABSOLUTE BASOPHILS # (AUTO) 0.1 10^3/uL (0.0-0.2); ABSOLUTE EOSINOPHILS # (AUTO) 0.1 10^3/uL (0.0-0.6); ABSOLUTE LYMPHOCYTES (AUTO) 1.9 10^3/uL (0.5-4.7); ABSOLUTE MONOCYTES (AUTO) 0.3 10^3/uL (0.1-1.4); ABSOLUTE NEUT (AUTO) 4.6 10^3/uL (1.7-8.2); HEMATOCRIT 43.2 % (37.9-51.0); LYMPHOCYTES % (AUTO) 27.1 % (13-45); MEAN CORPUSCULAR HEMOGLOBIN 30.4 pg (27.0-33.4); MEAN CORPUSCULAR HGB CONC 34.8 g/dL (32.0-36.0); MEAN CORPUSCULAR VOLUME 87 fl (80-97); MONOCYTES % (AUTO) 4.7 % (3-13); PLATELET COUNT 211 10^3/uL (150-450); RED BLOOD COUNT 4.95 10^6/uL (4.35-5.55); RED CELL DISTRIBUTION WIDTH 13.2 % (11.5-14.0); SEGMENTED NEUTROPHILS % (AUTO) 65.2 % (42-78); TOTAL CELLS COUNTED % (AUTO) 100 %; WHITE BLOOD COUNT 7.1 10^3/uL (4.0-10.5)
[2019-11-27 14:39] LABS: APPEARANCE,URINE CLEAR; BILIRUBIN,URINE NEGATIVE (NEGATIVE); COLOR,URINE YELLOW; GLUCOSE, URINE NEGATIVE (NEGATIVE); KETONES,URINE NEGATIVE (NEGATIVE); LEUKOCYTE ESTERASE,URINE NEGATIVE (NEGATIVE); NITRITE,URINE NEGATIVE (NEGATIVE); PROTEIN,URINE NEGATIVE (NEGATIVE); URINE SPECIFIC GRAVITY 1.018; UROBILINOGEN,URINE NEGATIVE mg/dL (<2.0)
[2019-11-27 15:08] LABS: ALBUMIN 4.6 g/dL (3.5-5.0); ALKALINE PHOSPHATASE 78 U/L (38-126); ANION GAP 10 (5-19); ASPARTATE AMINO TRANSFERASE 45 U/L (17-59); BILIRUBIN,DIRECT 0.4 mg/dL (0.0-0.4); BILIRUBIN,TOTAL 1.1 mg/dL (0.2-1.3); BLOOD UREA NITROGEN 11 mg/dL (7-20); CARBON DIOXIDE 29 mmol/L (22-30); CHLORIDE 102 mmol/L (98-107); GLUCOSE 152 mg/dL (75-110); POTASSIUM 4.2 mmol/L (3.6-5.0); TOTAL PROTEIN 7.4 g/dL (6.3-8.2)
[2019-11-27 15:11] LABS: ALCOHOL < 10 mg/dL (NONE DETECTED)
[2019-11-27] MEDS ORDERED: ONDANSETRON HCL INJ/PF 4 MG/2 ML SDV IV ONE (16:30)
[2019-11-27] MEDS ORDERED: KETOROLAC TROMETHAMINE INJ/PF 30 MG/1 ML SDV IV ONE (16:31)
--- NOTE | 2019-11-27 16:31 | ER Document Report ---
ED GI/ - General Chief Complaint: Pancreatitis Stated Complaint: ABDOMINAL PAIN Time Seen by Provider: 11/27/19 13:55 Primary Care Provider: DENNIS STONE MD [Primary Care Provider] - Follow up as needed Notes: 29-year-old male past medical history significant for pancreatitis presents emergency room with abdominal pain for the past week. Complains of nausea but no vomiting. Also complains of subjective fever and dysuria. States he was seen at [facility] 4 days ago was told that his labs were abnormal that it was consistent with pancreatitis and he needed to come to the emergency room. States he came yesterday but he left prior to being seen. Admits to alcohol use states usually about 1/5 a week states he has not drank in the past week. Not taking any medications for symptoms. TRAVEL OUTSIDE OF THE [place] IN LAST 30 DAYS: No - Related Data Allergies/Adverse Reactions: latex [Latex] Allergy (Unknown, Verified 11/26/19 16:49) Penicillins Allergy (Verified 11/26/19 16:49) bees Allergy (Uncoded 11/26/19 16:49) Past Medical History - General Information source: Patient - Social History Smoking Status: Current Every Day Smoker Frequency of alcohol use: Heavy Drug Abuse: None Family History: Reviewed & Not Pertinent, Arthritis, CVA, DM, Hypertension, Malignancy Patient has homicidal ideation: No Neurological Medical History: Reports: Hx Seizures - Patient reports 3 seizures, but thinks they were drug-induced. Endocrine Medical History: 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 Musculoskeletal Medical History: Reports Hx Arthritis - hands, Reports Hx Musculoskeletal Deformity Psychiatric Medical History: Reports: Hx Attention Deficit Hyperactivity Disorder, Hx Bipolar Disorder, Hx Depression - manic, Hx Schizophrenia Past Surgical History: Reports: Hx Oral Surgery - Immunizations Immunizations up to date: Yes Hx Diphtheria, Pertussis, Tetanus Vaccination: Yes - 2012 Review of Systems - Review of Systems Constitutional: No symptoms reported Cardiovascular: No symptoms reported Respiratory: No symptoms reported Gastrointestinal: Abdominal pain, Nausea. denies: Diarrhea, Vomiting, Constipation Genitourinary: Dysuria Musculoskeletal: No symptoms reported Skin: No symptoms reported Neurological/Psychological: No symptoms reported -: Yes All other systems reviewed and negative Physical Exam - Vital signs Vitals: Temp Pulse Resp BP Pulse Ox 98.1 F 93 16 131/84 H 96 11/27/19 13:49 11/27/19 13:49 11/27/19 13:49 11/27/19 13:49 11/27/19 13:49 - Notes Notes: GENERAL: Mild acute distress, non-toxic appearance. HEAD: Normal with no signs of head trauma. EYES: PERRLA, EOMI, conjunctiva normal, no discharge. EARS: Hearing grossly intact. NOSE: Normal. THROAT: Oropharynx is normal. NECK: Normal range of motion, no tenderness, supple, no lymphadenopathy, No adenopathy, no JVD. CHEST: Clear breath sounds bilaterally. No wheezes, rales, or rhonchi. CARDIAC: Regular rate and rhythm. S1 and S2, without murmurs, gallops, or rubs. VASCULAR: No Edema. Peripheral pulses normal and equal in all extremities. ABDOMEN: Normal and soft with no tenderness, no masses or pulsatile masses. No organomegaly. Positive bowel sounds x4. No CVA tenderness noted bilaterally. No guarding, no rebound. GASTROINTESTINAL: Bowel sounds normal LYMPATHTIC: No lymphadenopathy noted. MUSCULOSKELETAL: Good range of motion of all major joints. Extremities without clubbing, cyanosis or edema. NEUROLOGICAL: Alert and oriented x 3. No focal sensory or strength deficits. Speech normal. Follows commands appropriately. PSYCHIATRIC: Normal Affect, judgement and mood. SKIN: Normal appearance with no rashes or lesions. Course - Re-evaluation Re-evalutation: 11/27/19 18:34 Patient is resting comfortably he is pain-free on exam. He denies any pain at this time. Patient has requested to leave AGAINST MEDICAL ADVICE. States he cannot wait to get his CT results or he will miss his ride. The patient has chosen to leave the facility against medical advice. The relevant issues have been reviewed and discussed with the patient and family at the bedside. At the time of this assessment there is no indication for involuntary commitment. The patient is alert, oriented, and able to express clearly their reasoning for not wanting to remain in the emergency department for further treatment. The patient is not clinically psychotic, intoxicated, and denies and suicidal ideation. Differential or suspected diagnoses based on medical screening exam: Abdominal pain The patient is aware of the concerning diagnoses and acknowledges understanding of the reasons for the following recommendations: Loss of life, permanent disa bility, chronic pain, worsening of condition, cardiac dysfunction, respiratory dysfunction ,loss of current lifestyle, urinary dysfunction, gastrointestinal dysfunction The following recommendations/services were offered and refused: Further testing and evaluation The following risks were explained: , permanent disability, loss of current lifestyle, respiratory dysfunction, urinary dysfunction, chronic pain, gastrointestinal dysfunction, Clinical impression: Patient is competent to make decisions regarding the medical that is being offered. - Vital Signs Vital signs: Temp Pulse Resp BP Pulse Ox 98.1 F 93 16 131/84 H 96 11/27/19 13:49 11/27/19 13:49 11/27/19 13:49 11/27/19 13:49 11/27/19 13:49 - Laboratory Result Diagrams: 11/27/19 13:14 11/27/19 13:14 Laboratory results interpreted by me: 11/27/19 13:14 Glucose 152 H ALT 71 H Discharge - Discharge Clinical Impression: Abdominal pain of unknown etiology, Left against medical advice Condition: Stable Disposition: AGAINST MEDICAL ADVICE Instructions: Abdominal Pain ([facility]) Additional Instructions: You have requested to leave AGAINST MEDICAL ADVICE. You are counseled against the risks of leaving AMA including but not limited to , worsening pain, loss of current lifestyle, respiratory dysfunction, gastrointestinal dysfunction, urinary dysfunction, chronic pain. It is imperative that you follow-up with your primary care physician as soon as possible for further evaluation and management of your abdominal pain. You may return to the emergency room at anytime for further evaluation of your abdominal pain. Referrals: DENNIS STONE MD [Primary Care Provider] - Follow up as needed
--- NOTE | 2019-11-27 18:48 | RADIOLOGY REPORT (SQ) ---
EXAM DESCRIPTION: CT ABD/PELVIS WITH IV ONLY IMAGES COMPLETED DATE/TIME: 11/27/2019 6:22 pm REASON FOR STUDY: History of pancreatitis same pain COMPARISON: 12/28/2018 TECHNIQUE: CT scan of the abdomen and pelvis performed using helical scanning technique with dynamic intravenous contrast injection. No oral contrast. Images reviewed with lung, soft tissue, and bone windows. Reconstructed coronal and sagittal MPR images reviewed. Delayed images for evaluation of the urinary system also acquired. All images stored on PACS. All CT scanners at this facility use dose modulation, iterative reconstruction, and/or weight based d osing when appropriate to reduce radiation dose to as low as reasonably achievable (ALARA). [facility]: Dose Right [facility]: CareDose [facility]: Dose Right [facility]: Teradose 4D [facility]: Cabeo CONTRAST TYPE AND DOSE: contrast/concentration: Isovue 350.00 mmol/ml; Total Contrast Delivered: 98. 0 ml; Total Saline Delivered: 54.1 ml RENAL FUNCTION: BUN 11 creatinine 0.7 RADIATION DOSE: CT Rad equipment meets quality standard of care and radiation dose reduction techniq ues were employed. CTDIvol: 12.8 - 17.6 mGy. DLP: 1634 mGy-cm.. LIMITATIONS: None. FINDINGS: LOWER CHEST: No significant findings. No nodules or infiltrates. LIVER: The liver is diffusely hypoattenuating. No masses. SPLEEN: Normal size. No focal lesions. PANCREAS: No masses. No significant calcifications. No adjacent inflammation or peripancreatic fluid collections. Pancreatic duct not dilated. GALLBLADDER: Contracted. No stones. ADRENAL GLANDS: No significant masses or asymmetry. RIGHT KIDNEY AND URETER: Horseshoe kidney. Very small isthmus connects the lower poles of the kidney s. No significant calcifications. No hydronephrosis or hydroureter. LEFT KIDNEY AND URETER: Horseshoe kidney. No significant calcifications. No hydronephrosis or hyd roureter. AORTA AND VESSELS: No aneurysm. No dissection. Renal arteries, SMA, celiac without stenosis. RETROPERITONEUM: No retroperitoneal adenopathy, hemorrhage or masses. BOWEL AND PERITONEAL CAVITY: No masses or inflammatory changes. No free fluid or peritoneal masses. APPENDIX: Not identified. PELVIS: No mass. No free fluid. Normal bladder. ABDOMINAL WALL: No masses. No hernias. BONES: No significant or acute findings. OTHER: No other significant finding. IMPRESSION: Hepatic steatosis. Horseshoe kidney. No acute finding in the abdomen or pelvis. Speci fically, there is no evidence of acute pancreatitis. TECHNICAL DOCUMENTATION: JOB ID: [id number] Quality ID # [id number]: Final reports with documentation of one or more dose reduction techniques (e.g., Au tomated exposure control, adjustment of the mA and/or kV according to patient size, use of iterative reconstruction technique) 2010 [employer]- All Rights Reserved Reading location - IP/workstation name: [email or web address]
== END 2019-11-27 18:20 | disposition left against medical advice (07) ==
LOC: ER 13:45
DX: R10.9 Unspecified abdominal pain (principal); R11.0 Nausea; K76.0 Fatty (change of) liver, not elsewhere classified; Q63.1 Lobulated, fused and horseshoe kidney; F17.200 Nicotine dependence, unspecified, uncomplicated; Z87.19 Personal history of other diseases of the digestive system; Z91.040 Latex allergy status; Z88.0 Allergy status to penicillin; Z91.030 Bee allergy status; Z53.29 Procedure and treatment not carried out because of patient's decision for other reasons
CPT/HCPCS: 99285; 96374; 96375; 36415; 87086; 80307; 83690; 85025; 80053; 81001; 74177; J1885; J2405; J7030

== ENCOUNTER 2019-12-04 10:26 | Emergency (ER) | payer MEDICARE, MEDICAID ==
[2019-12-04] MEDS ORDERED: ONDANSETRON 4 MG TAB.RAPDIS PO ONE (10:47)
[2019-12-04] MEDS ORDERED: NORMAL SALINE 1000 ML 1,000 ML IV ONE (10:48)
--- NOTE | 2019-12-04 10:48 | ER Document Report ---
ED Medical Screen (RME) - General Chief Complaint: Abdominal Pain Stated Complaint: ABDOMINAL PAIN Time Seen by Provider: 12/04/19 10:44 Primary Care Provider: DENNIS STONE MD [Primary Care Provider] - Follow up as needed Notes: Patient presents complaining of abdominal pain for the past 4 days. Patient reports subjective fever at home with nausea and diarrhea x3 episodes today. Patient states he has had cough for the past 3 days. Patient reports lower back pain as well. Patient denies any significant past medical history. I have greeted and performed a rapid initial assessment of this patient. A c omprehensive ED assessment and evaluation of the patient, analysis of test results and completion of the medical decision making process will be conducted by additional ED providers. TRAVEL OUTSIDE OF THE [place] IN LAST 30 DAYS: No - Related Data Allergies/Adverse Reactions: latex [Latex] Allergy (Unknown, Verified 12/04/19 10:47) Penicillins Allergy (Verified 12/04/19 10:47) bees Allergy (Uncoded 12/04/19 10:47) Past Medical History - Social History Family history: Reviewed & Not Pertinent Neurological Medical History: Reports: Hx Seizures - Patient reports 3 seizures, but thinks they were drug-induced. Endocrine Medical History: 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 Musculoskeltal Medical History: Reports Hx Arthritis - hands, Reports Hx Musculoskeletal Deformity Psychiatric Medical History: Reports: Hx Attention Deficit Hyperactivity Dis order, Hx Bipolar Disorder, Hx Depression - manic, Hx Schizophrenia Past Surgical History: Reports: Hx Oral Surgery - Immunizations Immunizations up to date: Yes Hx Diphtheria, Pertussis, Tetanus Vaccination: Yes - 2012 Physical Exam - Vital signs Vitals: Temp Pulse Resp BP Pulse Ox 97.7 F 124 H 16 134/90 H 99 12/04/19 10:32 12/04/19 10:32 12/04/19 10:32 12/04/19 10:32 12/04/19 10:32 - Abdominal Tenderness: Tender - Epigastric Course - Vital Signs Vital signs: Temp Pulse Resp BP Pulse Ox 97.7 F 124 H 16 134/90 H 99 12/04/19 10:32 12/04/19 10:32 12/04/19 10:32 12/04/19 10:32 12/04/19 10:32 Doctor's Discharge - Discharge Referrals: DENNIS STONE MD [Primary Care Provider] - Follow up as needed
--- NOTE | 2019-12-04 11:43 | RADIOLOGY REPORT (SQ) ---
EXAM DESCRIPTION: CHEST SINGLE VIEW IMAGES COMPLETED DATE/TIME: 12/04/2019 11:34 am REASON FOR STUDY: cough COMPARISON: 04/30/2018 EXAM PARAMETERS: NUMBER OF VIEWS: One view. TECHNIQUE: Single frontal radiographic view of the chest acquired. RADIATION DOSE: NA LIMITATIONS: None. FINDINGS: LUNGS AND PLEURA: No opacities, masses or pneumothorax. No pleural effusion. MEDIASTINUM AND HILAR STRUCTURES: No masses. Contour normal. HEART AND VASCULAR STRUCTURES: Heart normal in size. Normal vasculature. BONES: No acute findings. HARDWARE: None in the chest. OTHER: No other significant finding. IMPRESSION: NO ACUTE RADIOGRAPHIC FINDING IN THE CHEST. TECHNICAL DOCUMENTATION: JOB ID: [id number] 2010 [employer]- All Rights Reserved Reading location - IP/workstation name: [email or web address]
--- NOTE | 2019-12-04 11:54 | ER Document Report ---
ED General - General Chief Complaint: Cold Symptoms Stated Complaint: ABDOMINAL PAIN Time Seen by Provider: 12/04/19 10:44 Primary Care Provider: DENNIS STONE MD [Primary Care Provider] - Follow up as needed Mode of Arrival: Ambulatory Information source: Patient Notes: 29-year-old man presenting to the emergency department with a 3-day history of body aches and pains with general fatigue, nausea vomiting and diarrhea. He also has cough which is nonproductive. Patient denies being exposed to the coronavirus. He is otherwise a healthy individual with no active medical problems. He does admit to daily alcohol use, heavier drinking on the weekends. States that the abdominal pain began 3 days ago and diarrhea with nausea and vomiting began yesterday, 12/03/2019. TRAVEL OUTSIDE OF THE [place] IN LAST 30 DAYS: No - Related Data Allergies/Adverse Reactions: latex [Latex] Allergy (Unknown, Verified 12/04/19 10:47) Penicillins Allergy (Verified 12/04/19 10:47) bees Allergy (Uncoded 12/04/19 10:47) Past Medical History - Social History Smoking Status: Current Every Day Smoker Chew tobacco use (# tins/day): No Frequency of alcohol use: Occasional Drug Abuse: None Family History: Reviewed & Not Pertinent, Arthritis, CVA, DM, Hypertension, Malignancy Patient has homicidal ideation: No Neurological Medical History: Reports: Hx Seizures - Patient reports 3 seizures, but thinks they were drug-induced. Endocrine Medical History: 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 Musculoskeletal Medical History: Reports Hx Arthritis - hands, Reports Hx Musculoskeletal Deformity Psychiatric Medical History: Reports: Hx Attention Deficit Hyperactivity Disorder, Hx Bipolar Disorder, Hx Depression - manic, Hx Schizophrenia Past Surgical History: Reports: Hx Oral Surgery - Immunizations Immunizations up to date: Yes Hx Diphtheria, Pertussis, Tetanus Vaccination: Yes - 2012 Review of Systems - Review of Systems Notes: Constitutional: See HPI. HENT: Negative for sore throat. Eyes: Negative for visual changes. Cardiovascular: Negative for chest pain. Respiratory: + Cough Gastrointestinal: See HPI. Genitourinary: Negative for dysuria. Musculoskeletal: Negative for back pain. Skin: Negative for rash. Neurological: Negative for headaches, weakness or numbness. 10 point ROS negative except as marked above and in HPI. -: Yes ROS unobtainable due to patient's medical condition Physical Exam - Vital signs Vitals: Temp Pulse Resp BP Pulse Ox 97.7 F 124 H 16 134/90 H 99 12/04/19 10:32 12/04/19 10:32 12/04/19 10:32 12/04/19 10:32 12/04/19 10:32 - Notes Notes: PHYSICAL EXAMINATION: Physical Exam: General: Well-nourished [id number] in no acute distress HEENT: NC/AT, pupils equal round and reactive to light, MM moist,nares clear, oropharynx clear, airway patent Neck: supple, no adenopathy, no masses. Good range of motion Lungs: clear, no wheezing, no rales no rhonchi CVS: Regular rate and rhythm no murmur gallop or rub Abdomen: Soft, active, nontender, no masses, no hepatosplenomegaly Ext: No edema, clubbing or cyanosis. Neuro: Alert and responsive, moving all 4 extremities on command, cranial nerves intact, no focal findings Skin: Intact no open lesions, no rash PSYCH: Normal mood, normal affect. Course - Re-evaluation Re-evalutation: 12/04/19 14:35 Patient is improved after 1 L of IV fluids and Zofran for nausea. Review of the labs reveals a elevated lipase of 923. He rates his pain a 4/10. I have discussed with the patient the risks of developing a severe pancreatitis if he continues to the alcohol use. He is also given prescriptions for discharge for Zofran and omeprazole. Of asked him to follow-up with his primary doctor as needed. - Vital Signs Vital signs: Temp Pulse Resp BP Pulse Ox 97.7 F 96 20 127/88 H 100 12/04/19 10:32 12/04/19 11:30 12/04/19 11:30 12/04/19 11:30 12/04/19 11:30 - Laboratory Result Diagrams: 12/04/19 11:40 12/04/19 11:40 Laboratory results interpreted by me: 12/04/19 11:40 Glucose 114 H ALT 65 H Lipase 923.3 H - Diagnostic Test Radiology reviewed: Image reviewed, Reports reviewed Radiology results interpreted by me: 12/04/19 14:37 Chest X-Ray 12/04/19 10:47 IMPRESSION: NO ACUTE RADIOGRAPHIC FINDING IN THE CHEST. Discharge - Discharge Clinical Impression: Elevated lipase, Suspected 2019 novel coronavirus infection Abdominal pain Qualifiers: Abdominal location: upper abdomen, unspecified Qualified Code(s): R10.10 - Upper abdominal pain, unspecified Gastritis Qualifiers: Gastritis type: unspecified gastritis Chronicity: unspecified Gastritis bleeding: without bleeding Qualified Code(s): K29.70 - Gastritis, unspecified, without bleeding Condition: Good Disposition: HOME, SELF-CARE Instructions: COVID-19 Guidance for Persons Under Investigation, Abdominal Pain (OM), Antinausea Medication (OM) Additional Instructions: You were seen in the emergency department with a 3-day history of epigastric abdominal pain and nausea with diarrhea. Because of the similar symptoms your made a person of interest for the coronavirus and testing has been started. Please self quarantine until you get the results of the tests. You were given a prescription for medications for nausea and for acid blocking. Please avoid alcohol use. Please avoid fried and greasy foods which may exacerbate your pain. If your symptoms are worsening or if you have other concerns you may return to the emergency department for further evaluation and treatment. HOME CARE INSTRUCTIONS & INFORMATION: Thank you for choosing us for your medical needs. We hope you're satisfied with the care you received. After you leave, you must properly care for your problem and, at the same time, observe its progress. Any condition can change. Some illnesses can change rapidly over hours or days. If your condition worsens, return to the Emergency Department or see your physician promptly. ABOUT YOUR X-RAYS AND EKG'S: If you had an EKG or X-rays taken, they have been read by the Emergency Physician. The X-rays and EKG's will also be read by a Radiologist or Activities Director Scouting within 24 hours. If discrepancies are noted, you will be notified by telephone. Please be certain the ED has a correct telephone number & address where you can be reached. Also, realize that some fractures or abnormalities do not show up on initial X-rays. If your symptoms continue, see your physician. ABOUT YOUR LABORATORY TEST: If you had laboratory tests, the results have been reviewed by the Emergency Physician. Some test results (for example cultures) may not be available for several days. You will be contacted if any test result shows you need additional treatment. Please be certain the ED has a correct telephone number and address where you can be reached. ABOUT YOUR MEDICATIONS: You will receive instructions on how to take your medicine on the prescription label you receive. Additional information may be provided by the Pharmacy. If you have questions afterwards, call the ED for cl arification or further instructions. Some prescribed medications may cause drowsiness. Do not perform tasks such as driving a car or operating machinery without consulting your Pharmacist. If you feel you need a refill of pain medication, your condition will need re-evaluation. Please do not call for a refill of any medication. ABOUT YOUR SIGNATURE: Signature of this document acknowledges to followin. Understanding that you received emergency treatment and that you may be released before al medical problems are known or treated. Please be certain the ED has a correct phone number & address where you can be reached. 2. Acknowledgement that you will arrange for follow-up care as recommended. 3. Authorization for the Emergency Physician to provide information to your follow-up Physician in order to maximize your care. AT ANY TIME, IF YOUR SYMPTOMS CHANGE SIGNIFICANTLY OR WORSEN OR YOU DEVELOP NEW SYMPTOMS, RETURN TO THE EMERGENCY DEPARTMENT IMMEDIATELY FOR RE-EVALUATION. OUR GOAL IS TO PROVIDE EXCELLENT MEDICAL CARE! WE HOPE THAT WE HAVE MET YOUR EXPECTATIONS DURING YOUR EMERGENCY DEPARTMENT VISIT AND THAT YOU FEEL YOU HAVE RECEIVED EXCELLENT CARE! Prescriptions: Omeprazole 40 mg PO DAILY #30 capsule. Ondansetron [Zofran Odt 4 mg Tablet] 1 - 2 tab PO Q4H PRN #10 tab.rapdis PRN Reason: For Nausea/Vomiting Referrals: DENNIS STONE MD [Primary Care Provider] - Follow up as needed
[2019-12-04 11:58] LABS: ABSOLUTE BASOPHILS # (AUTO) 0.1 10^3/uL (0.0-0.2); ABSOLUTE EOSINOPHILS # (AUTO) 0.1 10^3/uL (0.0-0.6); ABSOLUTE MONOCYTES (AUTO) 0.7 10^3/uL (0.1-1.4); EOSINOPHILS % (AUTO) 1.1 % (0-6); HEMATOCRIT 43.2 % (37.9-51.0); HEMOGLOBIN 14.9 g/dL (13.5-17.0); LYMPHOCYTES % (AUTO) 22.1 % (13-45); MEAN CORPUSCULAR HEMOGLOBIN 30.5 pg (27.0-33.4); MEAN CORPUSCULAR HGB CONC 34.6 g/dL (32.0-36.0); MEAN CORPUSCULAR VOLUME 88 fl (80-97); MONOCYTES % (AUTO) 7.7 % (3-13); PLATELET COUNT 233 10^3/uL (150-450); RED BLOOD COUNT 4.91 10^6/uL (4.35-5.55); RED CELL DISTRIBUTION WIDTH 13.3 % (11.5-14.0); SEGMENTED NEUTROPHILS % (AUTO) 68.1 % (42-78); TOTAL CELLS COUNTED % (AUTO) 100 %; WHITE BLOOD COUNT 8.8 10^3/uL (4.0-10.5)
[2019-12-04 12:28] LABS: ALBUMIN 4.9 g/dL (3.5-5.0); ALKALINE PHOSPHATASE 90 U/L (38-126); ANION GAP 9 (5-19); ASPARTATE AMINO TRANSFERASE 46 U/L (17-59); BILIRUBIN,DIRECT 0.3 mg/dL (0.0-0.4); BILIRUBIN,TOTAL 1.2 mg/dL (0.2-1.3); BLOOD UREA NITROGEN 10 mg/dL (7-20); CALCIUM 10.2 mg/dL (8.4-10.2); CARBON DIOXIDE 29 mmol/L (22-30); CHLORIDE 101 mmol/L (98-107); GLUCOSE 114 mg/dL (75-110); POTASSIUM 4.3 mmol/L (3.6-5.0); TOTAL PROTEIN 7.8 g/dL (6.3-8.2)
[2019-12-04 15:17] VITALS: BP 124/85
== END 2019-12-04 15:10 | disposition home or self-care (01) ==
LOC: ER 10:26
DX: R74.8 Abnormal levels of other serum enzymes (principal); R10.9 Unspecified abdominal pain; M79.10 Myalgia, unspecified site; R53.83 Other fatigue; R11.2 Nausea with vomiting, unspecified; R19.7 Diarrhea, unspecified; R05 Cough; Z20.828 Contact with and (suspected) exposure to other viral communicable diseases; F17.200 Nicotine dependence, unspecified, uncomplicated; Z88.0 Allergy status to penicillin
CPT/HCPCS: 99284; 96360; 36415; 83690; 85025; 80053; 71045; A9270; J7030; S0119

== ENCOUNTER 2019-12-04 22:28 | Emergency (ER) | payer MEDICARE, MEDICAID ==
--- NOTE | 2019-12-04 22:47 | ER Document Report ---
ED Medical Screen (RME) - General Stated Complaint: SUICIDAL IDEATION Time Seen by Provider: 12/04/19 22:39 Primary Care Provider: DENNIS STONE MD [Primary Care Provider] - Follow up as needed Mode of Arrival: Ambulatory Information source: Patient Notes: HPI; 29-year-old male presents to the emergency room via EMS after calling mobile crisis with concerns for hurting himself. Patient states he is feeling very stressed due to a lot of personal issues. Patient states he has a long history of depression, anxiety, bipolar, schizophrenia has had multiple suicide attempts in the past including cutting, burning, and attempted hanging. States his last suicide attempt was almost a month ago. States he did not have specific plan but states "I would probably cut my neck off with a machete" PE: Alert and oriented x3. Flat affect. Follows directions and answers questions appropriately. Admits to suicidal ideation, denies homicidal ideation.. Lungs: Clear to auscultation without rales, rhonchi, wheezes. Heart: Regular rate rhythm without murmurs, rubs, gallops. I have greeted and performed a rapid initial assessment of this patient. A comprehensive ED assessment and evaluation of the patient, analysis of test results and completion of the medical decision making process will be conducted by additional ED providers. I have specifically instructed the patient or fa nicholas members with the patient to immediately return to any nursing staff should anything change in the patient's condition or with their chief complaint. TRAVEL OUTSIDE OF THE [place] IN LAST 30 DAYS: No - Related Data Allergies/Adverse Reactions: latex [Latex] Allergy (Unknown, Verified 12/04/19 10:47) Penicillins Allergy (Verified 12/04/19 10:47) bees Allergy (Uncoded 12/04/19 10:47) Past Medical History - Social History Family history: Reviewed & Not Pertinent Neurological Medical History: Reports: Hx Seizures - Patient reports 3 seizures, but thinks they were drug-induced. Endocrine Medical History: 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 Musculoskeltal Medical History: Reports Hx Arthritis - hands, Reports Hx Musculoskeletal Deformity Psychiatric Medical History: Reports: Hx Attention Deficit Hyperactivity Disorder, Hx Bipolar Disorder, Hx Depression - manic, Hx Schizophrenia Past Surgical History: Reports: Hx Oral Surgery - Immunizations Immunizations up to date: Yes Hx Diphtheria, Pertussis, Tetanus Vaccination: Yes - 2013 Doctor's Discharge - Discharge Referrals: DENNIS STONE MD [Primary Care Provider] - Follow up as needed
[2019-12-05 00:44] LABS: ABSOLUTE BASOPHILS # (AUTO) 0.1 10^3/uL (0.0-0.2); ABSOLUTE EOSINOPHILS # (AUTO) 0.2 10^3/uL (0.0-0.6); ABSOLUTE LYMPHOCYTES (AUTO) 2.7 10^3/uL (0.5-4.7); ABSOLUTE MONOCYTES (AUTO) 0.7 10^3/uL (0.1-1.4); ABSOLUTE NEUT (AUTO) 4.9 10^3/uL (1.7-8.2); BASOPHILS % (AUTO) 1.2 % (0-2); EOSINOPHILS % (AUTO) 2.3 % (0-6); HEMATOCRIT 43.3 % (37.9-51.0); HEMOGLOBIN 15.1 g/dL (13.5-17.0); LYMPHOCYTES % (AUTO) 31.5 % (13-45); MEAN CORPUSCULAR HEMOGLOBIN 30.7 pg (27.0-33.4); MEAN CORPUSCULAR VOLUME 88 fl (80-97); MONOCYTES % (AUTO) 7.8 % (3-13); PLATELET COUNT 213 10^3/uL (150-450); RED BLOOD COUNT 4.92 10^6/uL (4.35-5.55); RED CELL DISTRIBUTION WIDTH 13.5 % (11.5-14.0); SEGMENTED NEUTROPHILS % (AUTO) 57.2 % (42-78); TOTAL CELLS COUNTED % (AUTO) 100 %; WHITE BLOOD COUNT 8.6 10^3/uL (4.0-10.5)
[2019-12-05 01:02] LABS: ACETAMINOPHEN < 10 ug/mL (10-30); ALBUMIN 4.9 g/dL (3.5-5.0); ALCOHOL < 10 mg/dL (NONE DETECTED); ALKALINE PHOSPHATASE 92 U/L (38-126); ANION GAP 9 (5-19); ASPARTATE AMINO TRANSFERASE 56 U/L (17-59); BILIRUBIN,DIRECT 0.3 mg/dL (0.0-0.4); BILIRUBIN,TOTAL 1.1 mg/dL (0.2-1.3); BLOOD UREA NITROGEN 9 mg/dL (7-20); CALCIUM 10.2 mg/dL (8.4-10.2); CARBON DIOXIDE 29 mmol/L (22-30); CHLORIDE 102 mmol/L (98-107); GLUCOSE 87 mg/dL (75-110); POTASSIUM 4.3 mmol/L (3.6-5.0); SALICYLATE < 1.0 mg/dL (2.0-20.0); TOTAL PROTEIN 7.4 g/dL (6.3-8.2)
--- NOTE | 2019-12-05 01:06 | ER Document Report ---
Entered by BRAD KAUFMAN SCRIBE 12/05/19 0053 Acting as scribe for:ALIREZA CASTRO DO ED General - General Chief Complaint: Suicidal Ideation Stated Complaint: SUICIDAL IDEATION Time Seen by Provider: 12/04/19 22:39 Primary Care Provider: DENNIS STONE MD [Primary Care Provider] - Follow up as needed Mode of Arrival: Ambulatory Information source: Patient, [facility] Records Notes: This 29 year old male patient with history of schizophrenia, depression, ADHD, and bipolar disorder, presents to the emergency department today with suicidal ideation. Patient states "I could take a machete and chop my own head off". Patient reports history of attempted suicide by cutting, burning, or hanging himself. Patient states he is homeless and denies recent drug use other than marijuana. Patient states he was initially brought to the ED by EMS and left AMA. Per nurse, patient was called to return to the ED and was escorted back by [employer]. TRAVEL OUTSIDE OF THE [place] IN LAST 30 DAYS: No - Related Data Allergies/Adverse Reactions: latex [Latex] Allergy (Unknown, Verified 12/04/19 10:47) Penicillins Allergy (Verified 12/04/19 10:47) bees Allergy (Uncoded 12/04/19 10:47) Past Medical History - General Information source: Patient, [facility] Records - Social History Smoking Status: Current Every Day Smoker Cigarette use (# per day): Yes Chew tobacco use (# tins/day): No Frequency of alcohol use: None Drug Abuse: Marijuana Lives with: Homeless Family History: Reviewed & Not Pertinent, Arthritis, CVA, DM, Hypertension, Malignancy Patient has homicidal ideation: No Neurological Medical History: Reports: Hx Seizures - Patient reports 3 seizures, but thinks they were drug-induced. Endocrine Medical History: 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 Musculoskeletal Medical History: Reports Hx Arthritis - hands, Reports Hx Musculoskeletal Deformity Psychiatric Medical History: Reports: Hx Attention Deficit Hyperactivity Disorder, Hx Bipolar Disorder, Hx Depression - manic, Hx Schizophrenia Past Surgical History: Reports: Hx Oral Surgery - Immunizations Immunizations up to date: Yes Hx Diphtheria, Pertussis, Tetanus Vaccination: Yes - 2012 Review of Systems - Review of Systems Constitutional: No symptoms reported EENT: No symptoms reported Cardiovascular: No symptoms reported Respiratory: No symptoms reported Gastrointestinal: No symptoms reported Genitourinary: No symptoms reported Male Genitourinary: No symptoms reported Musculoskeletal: No symptoms reported Skin: No symptoms reported Hematologic/Lymphatic: No symptoms reported Neurological/Psychological: See HPI, Suicidal ideation -: Yes All other systems reviewed and negative Physical Exam - Vital signs Vitals: Temp Pulse Resp BP Pulse Ox 98.0 F 80 16 136/88 H 100 12/04/19 22:41 12/04/19 22:41 12/04/19 22:41 12/04/19 22:41 12/04/19 22:41 - General General appearance: Appears well, Alert - HEENT Head: Normocephalic, Atraumatic Eyes: Normal Pupils: PERRL - Respiratory Respiratory status: No respiratory distress Chest status: Nontender Breath sounds: Normal Chest palpation: Normal - Cardiovascular Rhythm: Regular Heart sounds: Normal auscultation Murmur: No - Abdominal Inspection: Normal, Other - Soft Distension: No distension Bowel sounds: Normal Tenderness: Nontender - Extremities General upper extremity: Normal inspection, Normal ROM General lower extremity: Normal inspection, Normal ROM. No: Edema - Neurological Neuro grossly intact: Yes Cognition: Normal Orientation: AAOx4 Jovan Coma Scale Eye Opening: Spontaneous Oakley Coma Scale Verbal: Oriented Jovan Coma Scale Motor: Obeys Commands Oakley Coma Scale Total: 15 Speech: Normal Motor strength normal: LUE, RUE, LLE, RLE Sensory: Normal - Psychological Associated symptoms: Normal affect, Normal mood - Skin Skin Temperature: Warm Skin Moisture: Dry Skin Color: Normal Course - Vital Signs Vital signs: Temp Pulse Resp BP Pulse Ox 98.0 F 80 16 136/88 H 100 12/04/19 22:41 12/04/19 22:41 12/04/19 22:41 12/04/19 22:41 12/04/19 22:41 - Laboratory Result Diagrams: 12/05/19 00:25 12/05/19 00:25 Laboratory results interpreted by me: 12/05/19 00:25 ALT 71 H Salicylates < 1.0 L Acetaminophen < 10 L Critical Care Note - Critical Care Note Total time excluding time spent on procedures (mins): 30 Discharge - Discharge Clinical Impression: Suicidal ideation, Homelessness Bipolar disorder Qualifiers: Active/Remission status: remission status unspecified Qualified Code(s): F31.9 - Bipolar disorder, unspecified Condition: Serious Disposition: PSYCH HOSP/UNIT Referrals: DENNIS STONE MD [Primary Care Provider] - Follow up as needed I personally performed the services described in the documentation, reviewed and edited the documentation which was dictated to the scribe in my presence, and it accurately records my words and actions.
[2019-12-05 06:14] LABS: APPEARANCE,URINE CLEAR; BILIRUBIN,URINE NEGATIVE (NEGATIVE); COLOR,URINE YELLOW; GLUCOSE, URINE NEGATIVE (NEGATIVE); KETONES,URINE NEGATIVE (NEGATIVE); LEUKOCYTE ESTERASE,URINE NEGATIVE (NEGATIVE); NITRITE,URINE NEGATIVE (NEGATIVE); PROTEIN,URINE NEGATIVE (NEGATIVE); URINE SPECIFIC GRAVITY 1.012; UROBILINOGEN,URINE NEGATIVE mg/dL (<2.0)
[2019-12-05 06:32] LABS: URINE AMPHETAMINES SCREEN NEGATIVE; URINE BARBITURATES SCREEN NEGATIVE; URINE BENZODIAZEPINES SCREEN NEGATIVE; URINE COCAINE SCREEN NEGATIVE; URINE METHADONE SCREEN NEGATIVE; URINE PHENCYCLIDINE SCREEN NEGATIVE
[2019-12-05 06:36] LABS: URINE MARIJUANA (THC) SCREEN UNCONFIRMED POSITIVE
--- NOTE | 2019-12-05 07:02 | EKG REPORT ---
SEVERITY:- BORDERLINE ECG - SINUS RHYTHM BORDERLINE PROLONGED QT INTERVAL : Confirmed by: Marcelino Sosa MD 05-Dec-2019 07:00:29
--- NOTE | 2019-12-05 14:42 | ER Document Report ---
Doctor's Note Notes: 12/05/19 14:30 Patient's vital signs and previous labs, diagnostic images reviewed. Reviewed mental health notes, nurse's notes and previous providers notes. VSS. Pt is in no distress at this time. Patient endorses SI but the whole time that he has been emergency room has been, cooperative, eating dinner, friendly. Patient does not have access to a firearm, he is homeless and only shakes his head yes when he has any SI. Denies any HI. patient has already consulted with mental health advocate, Dyana, he states that he will find a machete a mutal persons, which is locked in a garage which he does not talk to and only can access via [place]. General: A&Ox3. Answers questions appropriately. Heart: RRR Lungs: CTAB Psych: Flat affect A/P: Continue monitoring and rec's per . Normal diet will discharge home per mental health 12/05/19 14:33
[2019-12-05 14:58] VITALS: BP 130/88
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
== END 2019-12-05 15:10 | disposition home or self-care (01) ==
LOC: ER 22:28
DX: R45.851 Suicidal ideations (principal); Z59.0 Homelessness; F31.9 Bipolar disorder, unspecified; F17.210 Nicotine dependence, cigarettes, uncomplicated; Z88.0 Allergy status to penicillin; Z88.8 Allergy status to other drugs, medicaments and biological substances
CPT/HCPCS: 36415; 80307; 81001; 87070; 93005; 93010; 99285

== ENCOUNTER 2020-02-08 23:32 | Emergency (ER) | payer MEDICARE, MEDICAID ==
[2020-02-09 01:30] LABS: ABSOLUTE BASOPHILS # (AUTO) 0.1 10^3/uL (0.0-0.2); ABSOLUTE EOSINOPHILS # (AUTO) 0.2 10^3/uL (0.0-0.6); ABSOLUTE LYMPHOCYTES (AUTO) 2.9 10^3/uL (0.5-4.7); ABSOLUTE MONOCYTES (AUTO) 0.8 10^3/uL (0.1-1.4); ABSOLUTE NEUT (AUTO) 4.7 10^3/uL (1.7-8.2); BASOPHILS % (AUTO) 0.7 % (0-2); EOSINOPHILS % (AUTO) 2.5 % (0-6); HEMATOCRIT 38.4 % (37.9-51.0); HEMOGLOBIN 13.3 g/dL (13.5-17.0); LYMPHOCYTES % (AUTO) 33.3 % (13-45); MEAN CORPUSCULAR HEMOGLOBIN 30.7 pg (27.0-33.4); MEAN CORPUSCULAR HGB CONC 34.6 g/dL (32.0-36.0); MEAN CORPUSCULAR VOLUME 89 fl (80-97); MONOCYTES % (AUTO) 8.7 % (3-13); PLATELET COUNT 235 10^3/uL (150-450); RED BLOOD COUNT 4.32 10^6/uL (4.35-5.55); RED CELL DISTRIBUTION WIDTH 12.9 % (11.5-14.0); SEGMENTED NEUTROPHILS % (AUTO) 54.8 % (42-78); TOTAL CELLS COUNTED % (AUTO) 100 %; WHITE BLOOD COUNT 8.7 10^3/uL (4.0-10.5)
[2020-02-09 01:54] LABS: ALBUMIN 4.5 g/dL (3.5-5.0); ALKALINE PHOSPHATASE 76 U/L (38-126); ANION GAP 8 (5-19); ASPARTATE AMINO TRANSFERASE 36 U/L (17-59); BILIRUBIN,DIRECT 0.1 mg/dL (0.0-0.4); BILIRUBIN,TOTAL 0.7 mg/dL (0.2-1.3); BLOOD UREA NITROGEN 10 mg/dL (7-20); CALCIUM 9.8 mg/dL (8.4-10.2); CARBON DIOXIDE 30 mmol/L (22-30); CHLORIDE 105 mmol/L (98-107); GLUCOSE 91 mg/dL (75-110); POTASSIUM 4.8 mmol/L (3.6-5.0); TOTAL PROTEIN 7.2 g/dL (6.3-8.2)
[2020-02-09 02:02] LABS: APPEARANCE,URINE SLIGHTLY-CLOUDY; BILIRUBIN,URINE NEGATIVE (NEGATIVE); COLOR,URINE YELLOW; GLUCOSE, URINE NEGATIVE (NEGATIVE); KETONES,URINE NEGATIVE (NEGATIVE); LEUKOCYTE ESTERASE,URINE NEGATIVE (NEGATIVE); NITRITE,URINE NEGATIVE (NEGATIVE); PROTEIN,URINE NEGATIVE (NEGATIVE)
== END 2020-02-09 02:25 | disposition left against medical advice (07) ==
LOC: ER 23:32
DX: Z53.21 Procedure and treatment not carried out due to patient leaving prior to being seen by health care provider (principal)